=== PATIENT | male | born 1940 | race African-American/Black ===

== ENCOUNTER 2018-04-19 08:20 | Inpatient (IN) | payer OTHER ==
[2018-04-13 16:07] VITALS: BMI 24.7
[2018-04-19] MEDS ORDERED: ETOMIDATE 20 MG/10 ML AMPUL IVPUSH ONE (10:51)
[2018-04-19] MEDS ORDERED: ISOSORBIDE MONONITRATE 60 MG TAB.SR.24H (FP) PO ONE (13:06)
--- NOTE | 2018-04-19 13:08 | CON.CARD ---
Consult Consult Specialty:: Cardiology Reason for Consultation:: htn - History of Present Illness History of Present Illness: patient evaluated for uncontrolled HTN - procedure cancelled due HTN. Patient did not take his meds in am. PMH [facility] 02/09/2012 Dr. Dickens PCI RCA Dr. Dickens PCI RCA Dr. Dickens POST ANESTHESIA NURSE/stent left renal and [facility] 03/17/2013 Dr. Dickens PCI LAD 09/12/16 Dr Dickens POST ANESTHESIA NURSE left SFA 10/29/16 Dr Dickens Ongoing medical problems Left renal artery POST ANESTHESIA NURSE/stent on 03/17/2013. AAA Atrial fibrillation Bladder CA CAD Carotid artery disease htn Hyperlipidemia pad - History Source History Provided By: Patient, Medical Record - Alcohol/Substance Use Hx Alcohol Use: Yes (quit 7 years ago) - Smoking History Smoking history: Former smoker Have you smoked in the past 12 months: No If you are a former smoker, when did you quit?: 20 years ago Home Medications - Allergies Allergies/Adverse Reactions: Allergies Allergy/AdvReac Type Severity Reaction Status Date / Time No Known Allergies Allergy Verified 04/19/18 09:14 - Home Medications Home Medications: Ambulatory Orders Amlodipine Besylate 10 mg PO DAILY 04/16/18 Aspirin 81 mg PO DAILY 04/16/18 Clopidogrel Bisulfate [Clopidogrel] 75 mg PO DAILY 04/16/18 Docusate Sodium 100 mg PO DAILY 04/16/18 Donepezil HCl 5 mg PO DAILY 04/16/18 Hydralazine HCl 50 mg PO DAILY 04/16/18 Isosorbide Mononitrate [Isosorbide Mononitrate ER] 60 mg PO DAILY 04/16/18 Loratadine 10 mg PO DAILY 04/16/18 Metoprolol Tartrate [Lopressor] 50 mg PO DAILY 04/16/18 Tamsulosin HCl 0.4 mg PO DAILY 04/16/18 Carbamazepine [Tegretol -] 200 mg PO TID 04/19/18 Ferrous Sulfate [Feosol] 325 mg PO DAILY 04/19/18 Gabapentin 800 mg PO TID 04/19/18 Ranitidine [Zantac -] 150 mg PO BID 04/19/18 Review of Systems - Review of Systems Constitutional: reports: No Symptoms Eyes: reports: No Symptoms HENT: reports: No Symptoms Neck: reports: No Symptoms Cardiovascular: reports: No Symptoms Gastrointestinal: reports: No Symptoms Genitourinary: reports: No Symptoms Breasts: reports: No Symptoms Reported Musculoskeletal: reports: No Symptoms Integumentary: reports: No Symptoms Neurological: reports: No Symptoms Endocrine: reports: No Symptoms Hematology/Lymphatic: reports: No Symptoms Psychiatric: reports: No Symptoms Vital Signs: Vital Signs Temperature 98.4 F 04/19/18 11:36 Pulse Rate 65 04/19/18 11:36 Respiratory Rate 16 04/19/18 11:36 Blood Pressure 205/86 H 04/19/18 11:36 O2 Sat by Pulse Oximetry (%) 98 04/19/18 11:36 Constitutional: Yes: Well Nourished, No Distress, Calm Eyes: Yes: WNL, Conjunctiva Clear, EOM Intact HENT: Yes: WNL, Atraumatic, Normocephalic Neck: Yes: WNL, Supple, Trachea Midline Respiratory: Yes: WNL, Regular, CTA Bilaterally Gastrointestinal: Yes: WNL, Normal Bowel Sounds Renal/: Yes: WNL Cardiovascular: Yes: WNL, Regular Rate and Rhythm Musculoskeletal: Yes: WNL Extremities: Yes: WNL Integumentary: Yes: WNL Neurological: Yes: WNL, Alert, Oriented ...Motor Strength: WNL Psychiatric: Yes: WNL, Alert, Oriented Imaging - Results EKG: Image Reviewed (sr lvh no changes from before) Assessment/Plan Uncontroled HTN [facility] 02/09/[address] Dr. Dickens PCI RCA Dr. Dickens PCI RCA Dr. Dickens POST ANESTHESIA NURSE/stent left renal and [facility] 03/17/2013 Dr. Dickens PCI LAD 09/12/16 Dr Dickens POST ANESTHESIA NURSE left SFA 10/29/16 Dr Dickens Left renal artery POST ANESTHESIA NURSE/stent on 03/17/2013. AAA Atrial fibrillation Bladder CA CAD Carotid artery disease htn Hyperlipidemia pad Plan restart antihypertensive po meds Will f/u as outp.
[2018-04-19 13:20] LABS: HEMATOCRIT 41.5 % (35.4-49); HEMOGLOBIN 13.2 GM/dL (11.7-16.9); MCH 30.1 pg (25.7-33.7); MCHC 31.8 g/dl (32.0-35.9); MEAN CELL VOLUME 94.8 fl (80-96); MEAN PLT VOLUME 8.7 fl (7.5-11.1); PLATELET COUNT 146 K/MM3 (134-434); RBC 4.37 M/mm3 (4.00-5.60); RDW 13.9 % (11.9-15.9); WHITE BLOOD COUNT 4.1 K/mm3 (4.0-10.0)
--- NOTE | 2018-04-19 13:29 | EKG ---
Test Reason : Blood Pressure : / mmHG Vent. Rate : 068 BPM Atrial Rate : 068 BPM P-R Int : 160 ms QRS Dur : 136 ms QT Int : 410 ms P-R-T Axes : 059 -54 050 degrees QTc Int : 435 ms NORMAL SINUS RHYTHM POSSIBLE LEFT ATRIAL ENLARGEMENT LEFT AXIS DEVIATION LEFT VENTRICULAR HYPERTROPHY WITH QRS WIDENING CANNOT RULE OUT ANTERIOR INFARCT , AGE UNDETERMINED ABNORMAL ECG NO PREVIOUS ECGS AVAILABLE Confirmed by ORESTES BARBOSA, STELLA ([id number]) on 04/19/2018 1:28:46 PM Referred By: Mikhail Madrigal Confirmed By:STELLA CARLISLE MD
[2018-04-19] MEDS: amLODIPine BESYLATE 10 MG TABLET (FP) PO ONE (13:32)
[2018-04-19 14:07] LABS: INR 0.97 (0.83-1.09); PROTHROMBIN TIME (PATIENT) 11.5 SEC (9.7-13.0)
[2018-04-19 14:19] LABS: ANION GAP 10 MMOL/L (8-16); BLOOD UREA NITROGEN 25 mg/dL (7-18); CALCIUM 8.5 mg/dL (8.5-10.1); CHLORIDE 106 mmol/L (98-107); CO2 22 mmol/L (21-32); GLUCOSE,RANDOM 90 mg/dL (74-106); POTASSIUM 4.4 mmol/L (3.5-5.1); SODIUM 138 mmol/L (136-145)
[2018-04-19 14:23] LABS: CREATININE 1.3 mg/dL (0.55-1.3)
--- NOTE | 2018-04-19 14:52 | PN ---
Progress Note (short form) - Note Progress Note: Anesthesia Event Note In brief, pt is a 77 yo M w/ hx of CAD s/p multiple PCI (last 10/2017) on DAPT, HTN, small AAA, PAD who presented today for procedure for TURBT/bladder biopsy. Procedure was deemed as semi-urgent due to need for tissue diagnosis of bladder tumor, thus procedure planned prior to 6 months after PCI. Pt reported this AM that he was unsure if he took his blood pressure medications. On admission, his BP was 178/88. Patient brought to OR and attached to monitors- first BP with systolic >200. In addition, patient noted to have progressively wider QRS from baseline EKG. Finally, patient with transient drop in HR to 30's with spontaneous recovery. Due to cardiac changes and elevated BP, decision made to cancel case. Pt and Dr. Dwaine Kim aware and understood cancellation. Patient did not receive any medications. Pt arrived to PACU with BP 190's/80-90's, stable, no pain. Labs drawn. Spoke to pt's cash register balancer, Dr. Meier, who saw patient prior to surgical scheduling. [facility]aver agreed with cancellation of case and did state that patient has a history of sick sinus syndrome to be worked up by EP at a later date. Dr. Liu (cash register balancer) arrived to bedside and evaluated patient. Recommended giving home BP meds and discharging him pending labs. CBC and BMP per patient's baseline, however troponin elevated to 0.24. Patient to be admitted to telemetry for workup. Dr. Dickens made aware and Dr. Liu to see patient. Patient understood current events and reason for admission.
--- NOTE | 2018-04-19 16:35 | CONSULT ---
Consultation: REQUESTING PROVIDER: Hilario Liu CONSULT REQUEST: We have been asked to medically evaluate this patient for (HTN urgency ). HISTORY OF PRESENT ILLNESS: pt is a 77 yo M w/ hx of CAD s/p multiple PCI (last 10/2017) on DAPT, HTN, small AAA, PAD who presented today for procedure for TURBT/bladder biopsy. Procedure was deemed as semi-urgent due to need for tissue diagnosis of bladder tumor, thus procedure planned prior to 6 months after PCI. Pt reported this AM that he was unsure if he took his blood pressure medications. On admission, his BP was 178/88. Patient brought to OR and attached to monitors- first BP with systolic >200. In addition, patient noted to have progressively wider QRS from baseline EKG. Finally, patient with transient drop in HR to 30's with spontaneous recovery. Due to cardiac changes and elevated BP, decision made to cancel case. Pt and Dr. Dwaine Kim aware and understood cancellation. Patient did not receive any medications. pt's manager graphic, Dr. Meier,was contacted , who saw patient prior to surgical scheduling. [facility] agreed with cancellation of case and did state that patient has a history of sick sinus syndrome to be worked up by EP at a later date. Dr. Liu (manager graphic) arrived to bedside and evaluated patient. Recommended giving home BP meds . CBC and BMP per patient's baseline, however troponin elevated to 0.24. Patient to be admitted to telemetry for workup. Dr. Dickens made aware and Dr. Liu to see patient. pt reports multiple episode of chest pain last few weeks , associated with SOB , usually resolved with SL NG. to day his chest pain was aggravated in certain positions when he extend and abdruct his arm , last 5-6 min , comes and goes , cramping in nature, pt is high risk for CAD and will admitted to tele for monitoring . pt sleep on 1-2 pillows , denies any orthopnea or exertional dyspnea. pt denies any fever, chills, N/V/D/C, denies any abdominal pain , denies any blood in urine , dysuria, frequencey or urgency. REVIEW OF SYSTEMS: CONSTITUTIONAL: Absent: fever, chills, diaphoresis, generalized weakness, malaise, loss of appetite, weight change HEENT: Absent: rhinorrhea, nasal congestion, throat pain, throat swelling, difficulty swallowing, mouth swelling, ear pain, eye pain, visual changes CARDIOVASCULAR: Absent: chest pain, syncope, palpitations, irregular heart rate, lightheadedness , peripheral edema RESPIRATORY: Absent: cough, shortness of breath, dyspnea with exertion, orthopnea, wheezing, stridor, hemoptysis GASTROINTESTINAL: Absent: abdominal pain, abdominal distension, nausea, vomiting, diarrhea, constipation, melena, hematochezia GENITOURINARY: Absent: dysuria, frequency, urgency, hesitancy, hematuria, flank pain, genital pain MUSCULOSKELETAL: Absent: myalgia, arthralgia, joint swelling, back pain, neck pain SKIN: Absent: rash, itching, pallor HEMATOLOGIC/IMMUNOLOGIC: Absent: easy bleeding, easy bruising, lymphadenopathy, frequent infections ENDOCRINE: Absent: unexplained weight gain, unexplained weight loss, heat intolerance, cold intolerance NEUROLOGIC: Absent: headache, focal weakness or paresthesias, dizziness, unsteady gait, seizure, mental status changes, bladder or bowel incontinence PSYCHIATRIC: Absent: anxiety, depression, suicidal or homicidal ideation, hallucinations. PHYSICAL EXAMINATION Vital Signs - 24 hr 04/19/18 04/19/18 04/19/18 08:40 11:36 11:55 Temperature 97.6 F 98.4 F Pulse Rate 76 65 66 Respiratory 16 16 18 Rate Blood Pressure 178/88 H 205/86 H 184/78 H O2 Sat by Pulse 100 98 98 Oximetry (%) 04/19/18 04/19/18 04/19/18 12:10 12:25 12:40 Temperature Pulse Rate 68 71 64 Respiratory 14 14 16 Rate Blood Pressure 179/72 H 185/83 H 199/87 H O2 Sat by Pulse 98 97 98 Oximetry (%) 04/19/18 04/19/18 04/19/18 12:55 13:10 13:25 Temperature Pulse Rate 42 L 62 70 Respiratory 16 14 16 Rate Blood Pressure 176/90 H 185/65 H 184/72 H O2 Sat by Pulse 100 99 99 Oximetry (%) 04/19/18 04/19/18 04/19/18 13:40 13:55 14:10 Temperature Pulse Rate 64 64 62 Respiratory 16 16 14 Rate Blood Pressure 182/81 H 171/79 H 168/72 O2 Sat by Pulse 98 98 98 Oximetry (%) 04/19/18 04/19/18 04/19/18 14:25 14:40 14:55 Temperature Pulse Rate 59 L 59 L 58 L Respiratory 16 16 16 Rate Blood Pressure 171/87 H 170/87 169/92 O2 Sat by Pulse 98 99 98 Oximetry (%) 04/19/18 04/19/18 04/19/18 15:10 15:25 15:48 Temperature Pulse Rate 72 71 74 Respiratory 18 16 16 Rate Blood Pressure 169/86 161/92 158/90 O2 Sat by Pulse 100 98 99 Oximetry (%) 04/19/18 15:53 Temperature 98.4 F Pulse Rate 71 Respiratory 16 Rate Blood Pressure 161/98 O2 Sat by Pulse Oximetry (%) GENERAL: AAOx3 in NAD HEAD:NC/AT, poor dentition EYES:QI, EOMI, sclera anicteric, ENT: Moist mucous membranes. NECK: supple without JVD, LUNGS:CTA B/L . No wheezes, and no crackles. No accessory muscle use. HEART: RRR, normal S1 and S2 without murmur, rub or gallop. ABDOMEN: Soft, ND, NT , normoactive bowel sounds, LOWER EXTREMITIES: 2+ pulses, warm, well-perfused. No calf tenderness. No peripheral edema. NEUROLOGICAL: No focal deficit . Normal speech. gait not observed PSYCHIATRIC: Cooperative. Good eye contact. Appropriate mood and affect. SKIN: Warm, dry, Laboratory Results - last 24 hr 04/19/18 04/19/18 04/19/18 13:00 13:00 13:00 WBC 4.1 RBC 4.37 Hgb 13.2 Hct 41.5 MCV 94.8 MCH 30.1 MCHC 31.8 L RDW 13.9 Plt Count 146 MPV 8.7 PT with INR 11.50 INR 0.97 Sodium 138 Potassium 4.4 Chloride 106 Carbon Dioxide 22 Anion Gap 10 BUN 25 H Creatinine 1.3 Creat Clearance w eGFR 53.67 Random Glucose 90 Calcium 8.5 Creatine Kinase 465 H Creatine Kinase Index 0.5 CK-MB (CK-2) 2.7 Troponin I 0.24 H CBC, BMP 04/19/18 13:00 04/19/18 13:00 EKG - NSR 68, LAD, LVH, QRS 435, QS in V2-V3 till tall T waves, ASSESSMENT AND PLAN: 77 yo M with PMHx of extensive atherosclerotic disease, CAD s/p multiple PCI, last RCA PCI 10/2017, PAD s/p PCI, renal artery stenosis s/p PCI 2012, AAA, HLD, HTN, bladder tumor admitted for elective TURBT/Biopsy, found hypertensive as did not take his BP meds, noted with mild troponin elevation # HTN urgency * pt bp was elevated up to 200 systolic before the procedure * Pt did not take his BP meds today * [facility] was consulted Dr Arevalo * on my present pt BP was 169 systolic , he received [id number] and .... * will resume his home meds Hydralysine and toprol XL today and rest will be resumed tomorrow AM * Trend Trop * Monitor in Tele # Elevated trop * Likely demand ischemia * trend trop * repeat EKG # Stable Angina usually take NG SL, today pain started in certain position but not reproducible # CAD S/P CABG last in October 2017 * Resume ASA , plavix # PVD S/P PCI #Renal artery stenosis S/P PCI * resume carbamazipine # BPH * resume home meds # Bladder cancer S/P laser treatment 5 years ago * TURB/biopsy was cancelled today * will stabilize the pt and deffer the procedure till medically optimized. # Anemia * cont Ferrous sulfate # FEN * F: oral intake * E: monitor * N: Low sodium diet # Proph * DVTS: on ASA, Plavix * GI: Cont ranitidine # Dispo * Tele monitor Dispo: We will continue to follow the patient. Thank you for this consultative opportunity. Visit type - Emergency Visit Emergency Visit: No - New Patient This patient is new to me today: Yes Date on this admission: 04/20/18 - Critical Care Critical Care patient: No
--- NOTE | 2018-04-19 17:02 | PN ---
Teaching Attending Note Name of Resident: Dick Adams ATTENDING PHYSICIAN STATEMENT I saw and evaluated the patient. I reviewed the resident's note and discussed the case with the resident. I agree with the resident's findings and plan as documented with exceptions below. SUBJECTIVE: 77 yom with PMHx of extensive atherosclerotic disease, CAD s/p multiple PCI, last RCA PCI 10/2017, PAD s/p PCI, renal artery stenosis s/p PCI 2012, AAA, HLD, HTN, bladder tumor admitted for elective TURBT/Biopsy today, however was noted with SBP 200s (unclear if took his meds) and EKG with widening QRS from prior, discussed with Dr. Ruiz, procedure was canceled, Dr. Liu was consulted and patient admitted to telemetry for management. Patient currently s/p amlodipine 10 mg and isosorbide mononitrate 60 mg. Currently SBP 160s. 12 point ROS done, patient reports intermittent left sided 'cramp' with left arm movements, none currently. reports intermittent anginal symptoms, takes sl NTG with resolution, current ' cramp' symptoms are positional. Patient confirms taking his ASA/plavix this morning but not his BP meds (med bottles at bedside, able to confirm and reconcile each medication) OBJECTIVE: Vital Signs Period Temp Pulse Resp BP Sys/Martins Pulse Ox Last 24 Hr 97.6 F-98.4 F 42-76 14-18 158-205/65-98 97-100 Intake & Output 04/16/18 04/17/18 04/18/18 04/19/18 23:59 23:59 23:59 23:59 Intake Total 500 Output Total 1050 Balance -550 GENERAL: Awake, alert, and fully oriented, in no acute distress. HEAD: Normal with no signs of trauma. EYES: Pupils equal, round and reactive to light, extra-ocular movements intact, sclera anicteric, conjunctiva clear. No lid lag. EARS, NOSE, THROAT: Ears normal, nares patent, oropharynx clear without exudates. Moist mucous membranes. NECK: soft, supple, no JVD LUNGS: Breath sounds equal, clear to auscultation bilaterally. No wheezes, and no crackles. No accessory muscle use, . HEART: S1S2 regular rate and rhythm. ABDOMEN: Soft, nontender, not distended, normoactive bowel sounds, no guarding, no rebound, no masses. MUSCULOSKELETAL: Normal range of motion at all joints. No bony deformities or tenderness. No CVA tenderness. UPPER EXTREMITIES: 1+DP pulses, warm, well-perfused. No cyanosis. No clubbing. No peripheral edema. LOWER EXTREMITIES: 1+DP pulses, warm, well-perfused. No calf tenderness. No peripheral edema. NEUROLOGICAL: Cranial nerves II-XII intact. Normal speech. Gait deferred PSYCHIATRIC: Cooperative. Good eye contact. Appropriate mood and affect. SKIN: Warm, dry, normal turgor, no rashes or lesions noted, normal capillary refill. Home Medications Medication Instructions Recorded Amlodipine Besylate 10 mg PO DAILY 04/16/18 Aspirin 81 mg PO DAILY 04/16/18 Clopidogrel Bisulfate [Clopidogrel] 75 mg PO DAILY 04/16/18 Docusate Sodium 100 mg PO DAILY 04/16/18 Donepezil HCl 5 mg PO DAILY 04/16/18 Hydralazine HCl 50 mg PO DAILY 04/16/18 Isosorbide Mononitrate [Isosorbide 60 mg PO DAILY 04/16/18 Mononitrate ER] Loratadine 10 mg PO DAILY 04/16/18 Metoprolol Tartrate [Lopressor] 50 mg PO DAILY 04/16/18 Tamsulosin HCl 0.4 mg PO DAILY 04/16/18 Carbamazepine [Tegretol -] 200 mg PO TID 04/19/18 Ferrous Sulfate [Feosol] 325 mg PO DAILY 04/19/18 Gabapentin 800 mg PO TID 04/19/18 Ranitidine [Zantac -] 150 mg PO BID 04/19/18 Laboratory Results - last 24 hr 04/19/18 04/19/18 04/19/18 13:00 13:00 13:00 WBC 4.1 RBC 4.37 Hgb 13.2 Hct 41.5 MCV 94.8 MCH 30.1 MCHC 31.8 L RDW 13.9 Plt Count 146 MPV 8.7 PT with INR 11.50 INR 0.97 Sodium 138 Potassium 4.4 Chloride 106 Carbon Dioxide 22 Anion Gap 10 BUN 25 H Creatinine 1.3 Creat Clearance w eGFR 53.67 Random Glucose 90 Calcium 8.5 Creatine Kinase 465 H Creatine Kinase Index 0.5 CK-MB (CK-2) 2.7 Troponin I 0.24 H EKG - NSR 68, LAD, LVH, QRS 435, QS in V2-V3 till tall T waves, ASSESSMENT AND PLAN: 77 yom with PMHx of extensive atherosclerotic disease, CAD s/p multiple PCI, last RCA PCI 10/2017, PAD s/p PCI, renal artery stenosis s/p PCI 2012, AAA, HLD, HTN, bladder tumor admitted for elective TURBT/Biopsy, found hypertensive as did not take his BP meds, noted with mild troponin elevation -Hypertensive urgency, likely in the setting of not taking his home meds today -Elevated troponin, ?demand ischemia from above, r/o ACS given high risk with non specific new EKG changes -Chronic stable angina -CAD s/p multiple PCI, last RCA PCI 10/2017 -Renal artery stenosis s/p PCI 013 -AAA -PAD s/p PCI -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 s/p amlodipine/ISMN in the PACU. resume toprol XL 25 mg and hydralazine 50 mg daily. ASA/plavix/ISMN per cardiology. patient not on statin?, defer to primary team. Telemetry to assess for arrythmia (h/o sick sinus syndrome per charts). Cycle troponin. Monitor for new chest pain, troponin elevation and EKG changes as patient high risk. Cr around baseline, monitor for now. Resume home flomax/carbamezepine. DVTPPX if inhouse and nonamblatory > 48 hours. plan discussed with patient and all questions answered. Thank you for the consult. Will follow with you. total time spent 65 min.
[2018-04-19] MEDS: hydrALAZINE HCL 50 MG TABLET (FP) PO SCH (18:29)
[2018-04-19] MEDS: metoPROLOL SUCCINATE 25 MG TAB.SR.24H (FP) PO SCH (18:30)
[2018-04-19 19:19] LABS: BASO % 1.2 % (0-2.0); EOS % 6.2 % (0-4.5); HEMATOCRIT 35.7 % (35.4-49); HEMOGLOBIN 12.6 GM/dL (11.7-16.9); LYMPH % 27.4 % (8-40); MCH 32.6 pg (25.7-33.7); MCHC 35.2 g/dl (32.0-35.9); MEAN CELL VOLUME 92.7 fl (80-96); MEAN PLT VOLUME 8.8 fl (7.5-11.1); MONO % 13.4 % (3.8-10.2); NEUT % 51.8 % (42.8-82.8); PLATELET COUNT 152 K/MM3 (134-434); RBC 3.85 M/mm3 (4.00-5.60); RDW 13.8 % (11.9-15.9)
[2018-04-19 19:55] LABS: ANION GAP 8 MMOL/L (8-16); BLOOD UREA NITROGEN 24 mg/dL (7-18); CALCIUM 8.3 mg/dL (8.5-10.1); CHLORIDE 105 mmol/L (98-107); CO2 27 mmol/L (21-32); CREATININE 1.3 mg/dL (0.55-1.3); GLUCOSE,RANDOM 114 mg/dL (74-106); POTASSIUM 3.8 mmol/L (3.5-5.1); SODIUM 140 mmol/L (136-145)
[2018-04-19] MEDS: GABAPENTIN 400 MG CAPSULE (FP) PO SCH (21:01)
[2018-04-19] MEDS: carBAMazepine 200 MG TABLET PO SCH (21:02)
[2018-04-19] MEDS: RANITIDINE HCL 150 MG TABLET (FP) PO SCH (21:02)
[2018-04-20] MEDS: carBAMazepine 200 MG TABLET PO SCH ×3 (05:43→22:52)
[2018-04-20] MEDS: GABAPENTIN 400 MG CAPSULE (FP) PO SCH ×3 (05:43→21:30)
[2018-04-20 07:47] LABS: MAGNESIUM 2.1 mg/dL (1.8-2.4); PHOSPHOROUS 3.5 mg/dL (2.5-4.9)
[2018-04-20] MEDS: hydrALAZINE HCL 50 MG TABLET (FP) PO SCH ×3 (08:36→21:30)
[2018-04-20] MEDS: TAMSULOSIN HCL 0.4 MG CAP PO SCH (08:36)
[2018-04-20] MEDS: metoPROLOL SUCCINATE 25 MG TAB.SR.24H (FP) PO SCH ×2 (08:37→14:56)
[2018-04-20] MEDS: amLODIPine BESYLATE 10 MG TABLET (FP) PO SCH ×2 (08:37→14:52)
[2018-04-20] MEDS: LORATADINE 10 MG TABLET PO SCH (11:06)
[2018-04-20] MEDS: CLOPIDOGREL BISULFATE 75 MG TABLET (FP) PO SCH (11:06)
[2018-04-20] MEDS: FERROUS SO4 325 MG TABLET (FP) PO SCH (11:07)
[2018-04-20] MEDS: RANITIDINE HCL 150 MG TABLET (FP) PO SCH ×2 (11:07→21:30)
[2018-04-20] MEDS: DOCUSATE SODIUM 100 MG CAPSULE (FP) PO SCH (11:07)
[2018-04-20] MEDS: DONEPEZIL HCL 5 MG TABLET (FP) PO SCH (11:07)
[2018-04-20] MEDS: ISOSORBIDE MONONITRATE 60 MG TAB.SR.24H (FP) PO SCH (11:08)
[2018-04-20] MEDS: ASPIRIN 81 MG CHEWABLE TABLETS PO SCH (11:09)
--- NOTE | 2018-04-20 12:28 | EKG ---
Test Reason : Blood Pressure : / mmHG Vent. Rate : 065 BPM Atrial Rate : 065 BPM P-R Int : 158 ms QRS Dur : 138 ms QT Int : 404 ms P-R-T Axes : 055 -46 058 degrees QTc Int : 420 ms NORMAL SINUS RHYTHM POSSIBLE LEFT ATRIAL ENLARGEMENT LEFT AXIS DEVIATION LEFT VENTRICULAR HYPERTROPHY WITH QRS WIDENING AND REPOLARIZATION ABNORMALITY CANNOT RULE OUT SEPTAL INFARCT (CITED ON OR BEFORE 19-APR-2018) ABNORMAL ECG Confirmed by MD ERIK, STAN ([id number]) on 04/20/2018 12:28:22 PM Referred By: Mikhail Madrigal Confirmed By:STAN VALENCIA MD
--- NOTE | 2018-04-20 12:37 | PN ---
Progress Note, Physician Chief Complaint: PT A&Ox3; ambulates without chest pain, dyspnea, or palpitations. History of Present Illness: pt is a 77 yo M w/ hx of CAD s/p multiple PCI (last 10/2017) on DAPT, HTN, small AAA, PAD who presented today for procedure for TURBT/bladder biopsy. Procedure was deemed as semi-urgent due to need for tissue diagnosis of bladder tumor, thus procedure planned prior to 6 months after PCI. Pt reported this AM that he was unsure if he took his blood pressure medications. On admission, his BP was 178/88. Patient brought to OR and attached to monitors- first BP with systolic >200. In addition, patient noted to have progressively wider QRS from baseline EKG. Finally, patient with transient drop in HR to 30's with spontaneous recovery. Due to cardiac changes and elevated BP, decision made to cancel case. Pt and Dr. Dwaine Kim aware and understood cancellation. Patient did not receive any medications. Pt arrived to PACU with BP 190's/80-90's, stable, no pain. Labs drawn. Spoke to pt's systems analysis manager, Dr. Meier, who saw patient prior to surgical scheduling. Mucker Cofferdam agreed with cancellation of case and did state that patient has a history of sick sinus syndrome to be worked up by EP at a later date. Dr. Liu (systems analysis manager) arrived to bedside and evaluated patient. Recommended giving home BP meds and discharging him pending labs. CBC and BMP per patient's baseline, however troponin elevated to 0.24. Patient to be admitted to telemetry for workup. Dr. Dickesn made aware and Dr. Liu to see patient. - Current Medication List Current Medications: Active Medications Amlodipine Besylate (Norvasc -) 10 mg PO DAILY [facility] Last Admin: 04/20/18 08:37 Dose: 10 mg Aspirin (Asa -) 81 mg PO DAILY [facility] Last Admin: 04/20/18 11:09 Dose: 81 mg Carbamazepine (Tegretol -) 200 mg PO TID [facility] Last Admin: 04/20/18 05:43 Dose: 200 mg Clopidogrel Bisulfate (Plavix -) 75 mg PO DAILY [facility] Last Admin: 04/20/18 11:06 Dose: 75 mg Docusate Sodium (Colace -) 100 mg PO DAILY [facility] Last Admin: 04/20/18 11:07 Dose: 100 mg Donepezil HCl (Aricept -) 5 mg PO DAILY [facility] Last Admin: 04/20/18 11:07 Dose: 5 mg Ferrous Sulfate (Feosol -) 325 mg PO DAILY [facility] Last Admin: 04/20/18 11:07 Dose: 325 mg Gabapentin (Neurontin -) 800 mg PO TID [facility] Last Admin: 04/20/18 05:43 Dose: 800 mg Hydralazine HCl (Apresoline -) 50 mg PO DAILY [facility] Last Admin: 04/20/18 08:36 Dose: 50 mg Isosorbide Mononitrate (Imdur -) 60 mg PO DAILY [facility] Last Admin: 04/20/18 11:08 Dose: 60 mg Loratadine (Claritin -) 10 mg PO DAILY [facility] Last Admin: 04/20/18 11:06 Dose: 10 mg Metoprolol Succinate (Toprol Xl -) 25 mg PO DAILY [facility] Last Admin: 04/20/18 08:37 Dose: 25 mg Ranitidine HCl (Zantac -) 150 mg PO BID [facility] Last Admin: 04/20/18 11:07 Dose: 150 mg Tamsulosin HCl (Flomax -) 0.4 mg PO DAILY@0830 [facility] Last Admin: 04/20/18 08:36 Dose: 0.4 mg - Objective Vital Signs: Vital Signs Temperature 98 F 04/20/18 08:30 Pulse Rate 62 04/20/18 10:58 Respiratory Rate 20 04/20/18 10:58 Blood Pressure 179/85 H 04/20/18 10:58 O2 Sat by Pulse Oximetry (%) 97 04/20/18 08:30 Constitutional: Yes: Calm Labs: CBC, BMP 04/19/18 18:02 04/19/18 18:00 INR, PTT INR 0.97 (0.83-1.09) 04/19/18 13:00 Problem List - Problems (1) HTN (hypertension) Assessment/Plan: Increase hydralazine to 50 mg bid. Continue [id number] 10 mg eaily. F/u BP and HR serailly (hx sick sinus syndrome; f/u carefully while on beta alexx; he has been on metoprolol ER 25 mg qd as outpatient).. Code(s): I10 - ESSENTIAL (PRIMARY) HYPERTENSION
--- NOTE | 2018-04-20 12:47 | PN ---
Physical Exam: SUBJECTIVE: Patient seen and examined at bedside. c/o blurry vision this am after eating breakfast. BGM right after 167. BP was 191/103. OBJECTIVE: Vital Signs Period Temp Pulse Resp BP Sys/Martins Pulse Ox Last 24 Hr 97.4 F-98.5 F 42-93 14-20 132-190/65-103 95-100 GENERAL: Awake Alert Oriented HEAD: NC/AT EYES: EOMI Conjunctiva clear, no scleral icterus ENT: MMM NECK: Supple, No LUNGS: DEc BS at bases. HEART: RRR No MRG S1S2. ABDOMEN: NDNT No HSM. EXTREMITIES:No CCE NEUROLOGICAL: No neuro deficits appreciated PSYCH: Normal mood, normal affect. SKIN: Warm, dry, normal turgor, no rashes or lesions noted Laboratory Results - last 24 hr 04/19/18 04/19/18 04/19/18 13:00 13:00 13:00 WBC 4.1 RBC 4.37 Hgb 13.2 Hct 41.5 MCV 94.8 MCH 30.1 MCHC 31.8 L RDW 13.9 Plt Count 146 MPV 8.7 Absolute Neuts (auto) Neutrophils % Lymphocytes % Monocytes % Eosinophils % Basophils % Nucleated RBC % PT with INR 11.50 INR 0.97 Sodium 138 Potassium 4.4 Chloride 106 Carbon Dioxide 22 Anion Gap 10 BUN 25 H Creatinine 1.3 Creat Clearance w eGFR 53.67 POC Glucometer Random Glucose 90 Calcium 8.5 Phosphorus Magnesium Creatine Kinase 465 H Creatine Kinase Index 0.5 CK-MB (CK-2) 2.7 Troponin I 0.24 H 04/19/18 04/19/18 04/20/18 18:00 18:02 05:30 WBC 4.0 RBC 3.85 L Hgb 12.6 Hct 35.7 MCV 92.7 MCH 32.6 MCHC 35.2 RDW 13.8 Plt Count 152 MPV 8.8 Absolute Neuts (auto) 2.1 Neutrophils % 51.8 Lymphocytes % 27.4 Monocytes % 13.4 H Eosinophils % 6.2 H Basophils % 1.2 Nucleated RBC % 0 PT with INR INR Sodium 140 Potassium 3.8 Chloride 105 Carbon Dioxide 27 Anion Gap 8 BUN 24 H Creatinine 1.3 Creat Clearance w eGFR 53.67 POC Glucometer Random Glucose 114 H Calcium 8.3 L Phosphorus 3.5 Magnesium 2.1 Creatine Kinase 339 H Creatine Kinase Index 0.5 CK-MB (CK-2) 1.7 Troponin I 0.28 H 04/20/18 08:21 WBC RBC Hgb Hct MCV MCH MCHC RDW Plt Count MPV Absolute Neuts (auto) Neutrophils % Lymphocytes % Monocytes % Eosinophils % Basophils % Nucleated RBC % PT with INR INR Sodium Potassium Chloride Carbon Dioxide Anion Gap BUN Creatinine Creat Clearance w eGFR POC Glucometer 167 Random Glucose Calcium Phosphorus Magnesium Creatine Kinase Creatine Kinase Index CK-MB (CK-2) Troponin I Active Medications Generic Name Dose Route Start Last Admin Trade Name Freq PRN Reason Stop Dose Admin Amlodipine Besylate 10 mg 04/20/18 10:00 04/20/18 08:37 Norvasc - PO 10 mg DAILY KATHRYN Administration Aspirin 81 mg 04/20/18 10:00 04/20/18 11:09 Asa - PO 81 mg DAILY KATHRYN Administration Carbamazepine 200 mg 04/19/18 22:00 04/20/18 05:43 Tegretol - PO 200 mg TID KATHRYN Administration Clopidogrel Bisulfate 75 mg 04/20/18 10:00 04/20/18 11:06 Plavix - PO 75 mg DAILY KATHRYN Administration Docusate Sodium 100 mg 04/20/18 10:00 04/20/18 11:07 Colace - PO 100 mg DAILY KATHRYN Administration Donepezil HCl 5 mg 04/20/18 10:00 04/20/18 11:07 Aricept - PO 5 mg DAILY KATHRYN Administration Ferrous Sulfate 325 mg 04/20/18 10:00 04/20/18 11:07 Feosol - PO 325 mg DAILY KATHRYN Administration Gabapentin 800 mg 04/19/18 22:00 04/20/18 05:43 Neurontin - PO 800 mg TID KATHRYN Administration Isosorbide Mononitrate 60 mg 04/20/18 10:00 04/20/18 11:08 Imdur - PO 60 mg DAILY KATHRYN Administration Loratadine 10 mg 04/20/18 10:00 04/20/18 11:06 Claritin - PO 10 mg DAILY KATHRYN Administration Metoprolol Succinate 25 mg 04/19/18 17:45 04/20/18 08:37 Toprol Xl - PO 25 mg DAILY KATHRYN Administration Ranitidine HCl 150 mg 04/19/18 22:00 04/20/18 11:07 Zantac - PO 150 mg BID KATHRYN Administration Tamsulosin HCl 0.4 mg 04/20/18 08:30 04/20/18 08:36 Flomax - PO 0.4 mg DAILY@0830 KATHRYN Administration ASSESSMENT/PLAN: 77 yo gentleman with PMHx of extensive atherosclerotic disease, CAD s/p multiple PCI, last RCA PCI 10/2017, PAD s/p PCI, renal artery stenosis s/p PCI 2012, AAA, HLD, HTN, bladder tumor admitted for elective TURBT/Biopsy, found hypertensive as did not take his BP meds, noted with mild troponin elevation # HTN urgency -pt bp was elevated up to 200 systolic before the procedure -Cardiology on board -BP 191/103 this am, given hydralazine 50 mg. - Increase hydralazine to 50 mg bid. -Continue [id number] 10 mg eaily. -Second trop 0.24, 3rd Trop pending -Monitor in Tele # Elevated trop -Likely demand ischemia 2/2 Hypertensive Urgency -trend trop # CAD S/P CABG last in October 2017 * Resume ASA , plavix # BPH * Tamsulosin .4 mg daily # Bladder cancer S/P laser treatment 5 years ago - Was scheduled for Transurethral resection of Bladder Tumor., postponed 2/2 hypertensive urgency -Dr Madrigal on board # FEN No Fluids Monitor Electrolytes Sodium controlled diet # DVT ppx: Plavix # Dispo -Tele . Visit type - Emergency Visit Emergency Visit: Yes ED Registration Date: 04/19/18 Care time: The patient presented to the Emergency Department on the above date and was hospitalized for further evaluation of their emergent condition. - New Patient This patient is new to me today: Yes Date on this admission: 04/20/18 - Critical Care Critical Care patient: No - Discharge Referral Referred to [facility] No
--- NOTE | 2018-04-20 14:59 | PN ---
Teaching Attending Note Name of Resident: Ronald Gibbons ATTENDING PHYSICIAN STATEMENT I saw and evaluated the patient. I reviewed the resident's note and discussed the case with the resident. I agree with the resident's findings and plan as documented. SUBJECTIVE:states he had blurred vision this AM after eating his breakfast. states he has had no recent changes to his antihypertensives and claims compliance. he did not take his medications yesterday morning. state when he checks his BP at home ranging between 150-160. denies CP, SOB, fever, chills, N/ V/C/D OBJECTIVE: Last Vital Signs Temp Pulse Resp BP Pulse Ox 98 F 88 20 179/85 H 97 04/20/18 08:30 04/20/18 13:40 04/20/18 10:58 04/20/18 10:58 04/20/18 13:40 General NAD CV S1 S2 RRR +murmur Lungs CTA B/L no wheezing/rales/rhonchi ASSESSMENT AND PLAN: 77 yom with PMHx of extensive atherosclerotic disease, CAD s/p multiple PCI, last RCA PCI 10/2017, PAD s/p PCI, renal artery stenosis s/p PCI 2012, AAA, HLD, HTN, bladder tumor admitted for elective TURBT/Biopsy, found hypertensive as did not take his BP meds, noted with mild troponin elevation 1. Hypertensive urgency- likely in the setting of not taking his home meds, however appears to be not at goal at baseline. hydralazine increased to BID. will cont to monitor. will need to titrate medications. cardio on board 2. Elevated troponin- likely demand from HTN urgency. flat trend. no EKG changes. 3. Bladder ca s/p laser therapy- will need to reschedule TURBT as outpatient. f/ u urology as outpatient 4. CKD 5. PAD s/p PCI 6. JAMEL s/p PCI 7. SSS 8. DVT ppx- EAM
[2018-04-20] MEDS ORDERED: PT OWN MED DRAWER 7, Y5N ONE ×2 (15:19→21:06)
[2018-04-20] MEDS ORDERED: ATORVASTATIN CA 20 MG TABLET (FP) PO SCH (22:00)
[2018-04-21] MEDS: carBAMazepine 200 MG TABLET PO SCH ×2 (06:25→13:49)
[2018-04-21] MEDS: GABAPENTIN 400 MG CAPSULE (FP) PO SCH ×2 (06:25→13:48)
[2018-04-21 07:23] LABS: HEMATOCRIT 38.6 % (35.4-49); HEMOGLOBIN 13.7 GM/dL (11.7-16.9); MCHC 35.4 g/dl (32.0-35.9); MEAN CELL VOLUME 93.3 fl (80-96); MEAN PLT VOLUME 8.8 fl (7.5-11.1); PLATELET COUNT 153 K/MM3 (134-434); RBC 4.14 M/mm3 (4.00-5.60); RDW 14.2 % (11.9-15.9); WHITE BLOOD COUNT 4.4 K/mm3 (4.0-10.0)
[2018-04-21 08:35] LABS: ANION GAP 4 MMOL/L (8-16); BLOOD UREA NITROGEN 20 mg/dL (7-18); CALCIUM 8.8 mg/dL (8.5-10.1); CHLORIDE 105 mmol/L (98-107); CO2 29 mmol/L (21-32); CREATININE 1.2 mg/dL (0.55-1.3); GLUCOSE,RANDOM 114 mg/dL (74-106); MAGNESIUM 2.2 mg/dL (1.8-2.4); PHOSPHOROUS 3.6 mg/dL (2.5-4.9); POTASSIUM 4.8 mmol/L (3.5-5.1); SODIUM 138 mmol/L (136-145)
[2018-04-21] MEDS: ASPIRIN 81 MG CHEWABLE TABLETS PO SCH (10:20)
[2018-04-21] MEDS: TAMSULOSIN HCL 0.4 MG CAP PO SCH (10:20)
[2018-04-21] MEDS: hydrALAZINE HCL 50 MG TABLET (FP) PO SCH (10:21)
[2018-04-21] MEDS: DOCUSATE SODIUM 100 MG CAPSULE (FP) PO SCH (10:21)
[2018-04-21] MEDS: RANITIDINE HCL 150 MG TABLET (FP) PO SCH (10:21)
[2018-04-21] MEDS: CLOPIDOGREL BISULFATE 75 MG TABLET (FP) PO SCH (10:21)
[2018-04-21] MEDS: amLODIPine BESYLATE 10 MG TABLET (FP) PO ONE (10:21)
[2018-04-21] MEDS: metoPROLOL SUCCINATE 25 MG TAB.SR.24H (FP) PO SCH (10:21)
[2018-04-21] MEDS: DONEPEZIL HCL 5 MG TABLET (FP) PO SCH (10:21)
[2018-04-21] MEDS: LORATADINE 10 MG TABLET PO SCH (10:21)
[2018-04-21] MEDS: amLODIPine BESYLATE 10 MG TABLET (FP) PO SCH (10:23)
[2018-04-21 10:48] VITALS: BP 160/70; PULSE 78; TEMP 99
--- NOTE | 2018-04-21 12:24 | PN ---
Progress Note, Physician History of Present Illness: patient evaluated for uncontrolled HTN - procedure cancelled due HTN. Patient did not take his meds in am. PMH [facility] 02/09/2012 Dr. Dickens PCI RCA Dr. 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 03/17/2013 Dr. 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 AAA Atrial fibrillation Bladder CA CAD Carotid artery disease htn Hyperlipidemia pad - Current Medication List Current Medications: Active Medications Amlodipine Besylate (Norvasc -) 10 mg PO DAILY [facility] Last Admin: 04/21/18 10:23 Dose: 10 mg Aspirin (Asa -) 81 mg PO DAILY [facility] Last Admin: 04/21/18 10:20 Dose: 81 mg Atorvastatin Calcium (Lipitor -) 20 mg PO HS [facility] Last Admin: 04/20/18 21:30 Dose: 20 mg Carbamazepine (Tegretol -) 200 mg PO TID [facility] Last Admin: 04/21/18 06:25 Dose: 200 mg Clopidogrel Bisulfate (Plavix -) 75 mg PO DAILY [facility] Last Admin: 04/21/18 10:21 Dose: 75 mg Docusate Sodium (Colace -) 100 mg PO DAILY [facility] Last Admin: 04/21/18 10:21 Dose: 100 mg Donepezil HCl (Aricept -) 5 mg PO DAILY [facility] Last Admin: 04/21/18 10:21 Dose: 5 mg Ferrous Sulfate (Feosol -) 325 mg PO DAILY [facility] Last Admin: 04/20/18 11:07 Dose: 325 mg Gabapentin (Neurontin -) 800 mg PO TID [facility] Last Admin: 04/21/18 06:25 Dose: 800 mg Hydralazine HCl (Apresoline -) 50 mg PO BID [facility] Last Admin: 04/21/18 10:21 Dose: 50 mg Isosorbide Mononitrate (Imdur -) 60 mg PO DAILY [facility] Last Admin: 04/20/18 11:08 Dose: 60 mg Loratadine (Claritin -) 10 mg PO DAILY [facility] Last Admin: 04/21/18 10:21 Dose: 10 mg Metoprolol Succinate (Toprol Xl -) 25 mg PO DAILY [facility] Last Admin: 04/21/18 10:21 Dose: 25 mg Ranitidine HCl (Zantac -) 150 mg PO BID [facility] Last Admin: 04/21/18 10:21 Dose: 150 mg Tamsulosin HCl (Flomax -) 0.4 mg PO DAILY@0830 [facility] Last Admin: 04/21/18 10:20 Dose: 0.4 mg - Objective Vital Signs: Vital Signs Temperature 99 F 04/21/18 10:47 Pulse Rate 78 04/21/18 10:47 Respiratory Rate 20 04/21/18 10:47 Blood Pressure 160/70 04/21/18 10:47 O2 Sat by Pulse Oximetry (%) 97 04/21/18 08:22 Eyes: Yes: WNL, Conjunctiva Clear, EOM Intact HENT: Yes: WNL, Atraumatic, Normocephalic Neck: Yes: WNL, Supple, Trachea Midline Cardiovascular: Yes: WNL, Regular Rate and Rhythm Respiratory: Yes: WNL, Regular, CTA Bilaterally Gastrointestinal: Yes: WNL, Normal Bowel Sounds Genitourinary: Yes: WNL Musculoskeletal: Yes: WNL Extremities: Yes: WNL Edema: No Integumentary: Yes: WNL Neurological: Yes: WNL, Alert, Oriented ...Motor Strength: WNL Psychiatric: Yes: WNL Labs: CBC, BMP 04/21/18 06:20 04/21/18 06:20 INR, PTT INR 0.97 (0.83-1.09) 04/19/18 13:00 Assessment/Plan - Problems (1) HTN (hypertension) Assessment/Plan: Increase hydralazine to 50 mg bid. Continue [id number] 10 mg eaily. F/u BP and HR serailly (hx sick sinus syndrome; f/u carefully while on beta alexx; he has been on metoprolol ER 25 mg qd as outpatient).. Code(s): I10 - ESSENTIAL (PRIMARY) HYPERTENSION
--- NOTE | 2018-04-21 13:17 | PN ---
Teaching Attending Note Name of Resident: Ronald Gibbons ATTENDING PHYSICIAN STATEMENT I saw and evaluated the patient. I reviewed the resident's note and discussed the case with the resident. I agree with the resident's findings and plan as documented. SUBJECTIVE:asymptomatic. states no recurrent episodes of blurred vision. denies Cp, SOB, fever, chills, N/V/C/D OBJECTIVE: Last Vital Signs Temp Pulse Resp BP Pulse Ox 99 F 78 20 160/70 97 04/21/18 10:47 04/21/18 10:47 04/21/18 10:47 04/21/18 10:47 04/21/18 08:22 General NAD CV S1 S2 RRR +murmur Lungs CTA B/L no wheezing/rales/rhonchi ASSESSMENT AND PLAN: 77 yom with PMHx of extensive atherosclerotic disease, CAD s/p multiple PCI, last RCA PCI 10/2017, PAD s/p PCI, renal artery stenosis s/p PCI 2012, AAA, HLD, HTN, bladder tumor admitted for elective TURBT/Biopsy, found hypertensive as did not take his BP meds, noted with mild troponin elevation 1. Hypertensive urgency- likely in the setting of not taking his home meds, however appears to be not at goal at baseline. BP improved. pt appears to have poor knowledge on low salt diet. will have dietary eval to educate on foods to avoid or reduced. stress importance of medication compliance and that goal SBP should be closer to 130. and that 160 he was getting at home is too high. cont current regimen. should probably have eval by cardio prior to bx to ensure BP is table prior to procedure. 2. Elevated troponin- likely demand from HTN urgency. flat trend. no EKG changes. 3. Bladder ca s/p laser therapy- will need to reschedule TURBT as outpatient. f/ u urology as outpatient 4. CKD 5. PAD s/p PCI 6. JAMEL s/p PCI 7. SSS 8. DVT ppx- EAM 9. d/c home
[2018-04-21] MEDS: ISOSORBIDE MONONITRATE 60 MG TAB.SR.24H (FP) PO SCH (13:49)
[2018-04-21] MEDS: FERROUS SO4 325 MG TABLET (FP) PO SCH (13:49)
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
== END 2018-04-21 15:02 | disposition home or self-care (01) | DRG 305 ==
LOC: JASU-SURG 08:20 → JSAMEDAYSX 15:41 → J4W 17:10
PROVIDERS: ADMIT Internal Medicine Cardiovascular Disease; ATTEND Internal Medicine
DX: I16.0 Hypertensive urgency (principal); E24.8 Other Cushing's syndrome; I24.8 Other forms of acute ischemic heart disease; C78.7 Secondary malignant neoplasm of liver and intrahepatic bile duct; N18.2 Chronic kidney disease, stage 2 (mild); I13.0 Hypertensive heart and chronic kidney disease with heart failure and stage 1 through stage 4 chronic kidney disease, or unspecified chronic kidney disease; I70.1 Atherosclerosis of renal artery; Z95.5 Presence of coronary angioplasty implant and graft; I25.10 Atherosclerotic heart disease of native coronary artery without angina pectoris; C67.9 Malignant neoplasm of bladder, unspecified; N18.9 Chronic kidney disease, unspecified; Z85.51 Personal history of malignant neoplasm of bladder; Z87.891 Personal history of nicotine dependence; Z95.1 Presence of aortocoronary bypass graft; I73.9 Peripheral vascular disease, unspecified; D64.9 Anemia, unspecified
CPT/HCPCS: 36415; 80048; 82550; 82553; 82962; 83735; 84100; 84484; 85025; 85027; 85610; 93005; 93010; 94760; 94761

== ENCOUNTER 2018-11-09 09:02 | Inpatient (IN) | payer OTHER ==
--- NOTE | 2018-11-09 09:33 | PDOC ---
History of Present Illness - General Chief Complaint: Weakness Stated Complaint: LOSS OF APPETITE,FORGETFULNESS Time Seen by Provider: 11/09/18 09:32 History Source: Patient Exam Limitations: No Limitations - History of Present Illness Initial Comments: 11/09/18 09:33 Mr Mercer is a 77 yo M who presents to the ER with a complaint of weakness The patient states that 8 days ago he noted a high fever (unable to tell me how high). Pt states that over the past 8 days he had felt weak. 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 HEAD, EYES, EARS, NOSE AND THROAT: No: change in vision, ear pain, discharge, sore throat CARDIOVASCULAR: No: chest pain, lightheadedness, palpitations RESPIRATORY: No: cough, shortness of breath, wheezing GASTROINTESTINAL: No: nausea, vomiting, diarrhea, abdominal cramping GENITOURINARY: No: dysuria, hematuria, frequency, urgency, flank pain. MUSCULOSKELETAL: No: back pain, neck pain, joint pain, muscle swelling or pain SKIN: No: lesions, pallor, rash or easy bruising. NEUROLOGIC: Yes: weakness No: headache, vertigo, paresthesias ENDOCRINE: No: unexplained weight gain or loss HEMATOLOGIC/LYMPHATIC: No: anemia, easy bleeding, swelling nodes. PE: GENERAL: The patient is in no acute distress, he is weak, sleeps on exam but is arousable to voice. HEAD: Normal with no signs of trauma. EYES: PERRLA, EOMI, sclera anicteric, conjunctiva clear. ENT: Ears normal, nares patent, oropharynx clear without exudates. Dry mucous membranes. Very thick white substance on tongue NECK: Normal range of motion, supple without lymphadenopathy, no nuchal rigidity LUNGS: Breath sounds equal, clear to auscultation bilaterally. No wheezes, and no crackles. Intermittent coughing on examination HEART:Regular rate and rhythm, normal S1 and S2 without murmur, rub or gallop. ABDOMEN: Soft, nontender, normoactive bowel sounds. No guarding, no rebound. EXTREMITIES: Normal range of motion, no edema. NEUROLOGICAL: Cranial nerves II through XII grossly intact. Normal speech. No focal neurological deficits. MUSCULOSKELETAL: Back non-tender to palpation, No CVA tenderness SKIN: No rashes or lesions noted. 11/09/18 09:35 11/09/18 09:36 11/09/18 09:54 11/09/18 09:59 Past History - Past Medical History Allergies/Adverse Reactions: Allergies Allergy/AdvReac Type Severity Reaction Status Date / Time No Known Allergies Allergy Verified 11/09/18 11:05 Home Medications: Ambulatory Orders Amlodipine Besylate 10 mg PO DAILY 04/16/18 Aspirin 81 mg PO DAILY 04/16/18 Clopidogrel Bisulfate [Clopidogrel] 75 mg PO DAILY 04/16/18 Donepezil HCl 5 mg PO DAILY 04/16/18 Isosorbide Mononitrate [Isosorbide Mononitrate ER] 60 mg PO DAILY 04/16/18 Tamsulosin HCl 0.4 mg PO DAILY 04/16/18 Gabapentin 600 mg PO TID PRN 04/19/18 Metoprolol Succinate [Toprol Xl] 25 mg PO DAILY 04/19/18 Ranitidine [Zantac -] 150 mg PO BID 04/19/18 Albuterol 0.083% Nebulizer Amy [Ventolin 0.083% Nebulizer Soln -] 1 amp IH Q4H PRN 11/09/18 Carbamazepine 200 mg PO TID 11/09/18 Pravastatin Sodium [Pravachol (Nf)] 80 mg PO HS 11/09/18 hydrALAZINE HCL [Apresoline -] 50 mg PO BID 11/09/18 Asthma: Yes (bronchitis) Cancer: Yes (bladder cancer) COPD: Yes Diabetes: Yes HTN: Yes Hypercholesterolemia: Yes - Suicide/Smoking/Psychosocial Hx Smoking History: Former smoker Have you smoked in the past 12 months: No If you are a former smoker, when did you quit?: 25 years ago Information on smoking cessation initiated: No Hx Alcohol Use: No Drug/Substance Use Hx: No Substance Use Type: None Hx Substance Use Treatment: No *Physical Exam - Vital Signs Last Vital Signs Temp Pulse Resp BP Pulse Ox 100.9 F H 97 H 18 137/77 95 11/09/18 09:05 11/09/18 09:05 11/09/18 09:05 11/09/18 09:05 11/09/18 09:05 ED Treatment Course - LABORATORY CBC & Chemistry Diagram: 11/09/18 10:12 11/09/18 09:34 Medical Decision Making - Medical Decision Making 11/09/18 10:07 77 yo M presenting with a complaint of weakness Pt found to be febrile on examination He denies localizing symptoms DD: Viral syndrome, Bacterial infection (Pneumonia, UTI, intra-abdominal process, doubt [employer] infection given chronicity of symptoms) Will do Sepsis order set IVF Tylenol CXR Re assess 11/09/18 10:27 EKG: NSR rate of 88 bpm, LVH, LAD, no st elevation, t wave inversion in V1 as compared to EKG from 2018 11/09/18 10:29 11/09/18 10:29 11/09/18 10:55 Laboratory Tests 11/09/18 11/09/18 10:12 10:12 INR 1.22 H VBG pH 7.40 POC VBG pCO2 39.9 L POC VBG pO2 51.4 H 11/09/18 12:52 CT head - microvascular ischemic changes, no acute ICH or Mass 11/09/18 14:05 Laboratory Tests 11/09/18 11/09/18 09:34 09:34 Creatine Kinase 90 CK-MB (CK-2) < 1.0 Troponin I 0.20 H 11/09/18 14:05 Laboratory Tests 11/09/18 09:34 Sodium 137 Potassium 4.3 Chloride 102 Carbon Dioxide 25 Anion Gap 10 BUN 37.7 H Creatinine 2.2 H Random Glucose 141 H AST 205 H ALT 242 H Alkaline Phosphatase 120 H 11/09/18 14:06 Laboratory Tests 11/09/18 10:12 WBC 9.2 Hgb 10.7 L Hct 31.9 L D Plt Count [address] chest - cardiomegaly, no infiltrate, aneurysm CT abd and pelvis - GB distention without wall thickening or PCCF, Left ureteral edema and periureteral stranding, bilateral hernias containing fat only , abdominal aortic aneurysmal dilitation 11/09/18 14:16 UA still pending 11/09/18 14:52 Laboratory Tests 11/09/18 14:00 Urine Nitrite Negative Ur Leukocyte Esterase 2+ H Urine WBC (Auto) 62 Urine RBC (Auto) 3 U Epithel Cells (Auto) 2.0 Urine Bacteria (Auto) 657.3 *DC/Admit/Observation/Transfer Diagnosis at time of Disposition: CLOVIS (acute kidney injury), Dehydration UTI (urinary tract infection) Qualifiers: Urinary tract infection type: site unspecified Hematuria presence: without hematuria Qualified Code(s): N39.0 - Urinary tract infection, site not specified Fever Qualifiers: Fever type: unspecified Qualified Code(s): R50.9 - Fever, unspecified - Discharge Dispostion Condition at time of disposition: Stable Decision to Admit order: Yes - Referrals - Patient Instructions - Post Discharge Activity
[2018-11-09] MEDS ORDERED: SODIUM CHLORIDE 1,000 ML IV STA ×2 (09:54→12:36)
[2018-11-09] MEDS ORDERED: ACETAMINOPHEN 1000 MG/100 ML VIAL (NON FORMULARY) IVPB ONE (09:54)
[2018-11-09] MEDS ORDERED: ACETAMINOPHEN INJECTION 100 ML IVPB ONE (10:33)
[2018-11-09 10:38] LABS: VENOUS PC02 39.9 mmHg (41-51); VENOUS PH 7.4 (7.31-7.41); VENOUS PO2 51.4 mmHg (30-40)
[2018-11-09 10:50] LABS: INR 1.22 (0.83-1.09); PROTHROMBIN TIME (PATIENT) 14.4 SEC (9.7-13.0)
[2018-11-09 10:53] LABS: ACTIVATED PTT 28.4 SECONDS (25.2-36.5)
[2018-11-09 10:55] LABS: BASO % 0.4 % (0-2.0); EOS % 0.1 % (0-4.5); HEMATOCRIT 31.9 % (35.4-49); HEMOGLOBIN 10.7 GM/dL (11.7-16.9); LYMPH % 7.6 % (8-40); MCH 31.5 pg (25.7-33.7); MCHC 33.5 g/dl (32.0-35.9); MEAN CELL VOLUME 94.1 fl (80-96); MEAN PLT VOLUME 9.5 fl (7.5-11.1); MONO % 16.2 % (3.8-10.2); NEUT % 75.7 % (42.8-82.8); PLATELET COUNT 184 K/MM3 (134-434); RBC 3.39 M/mm3 (4.00-5.60); RDW 13.6 % (11.9-15.9); WHITE BLOOD COUNT 9.2 K/mm3 (4.0-10.0)
[2018-11-09 11:09] LABS: ALBUMIN 2.8 g/dl (3.4-5.0); ALK PHOS 120 U/L (45-117); ANION GAP 10 MMOL/L (8-16); BILIRUBIN,TOTAL 0.6 mg/dL (0.2-1); BLOOD UREA NITROGEN 37.7 mg/dL (7-18); CALCIUM 8.5 mg/dL (8.5-10.1); CHLORIDE 102 mmol/L (98-107); CO2 25 mmol/L (21-32); CREATININE 2.2 mg/dL (0.55-1.3); GLUCOSE,RANDOM 141 mg/dL (74-106); POTASSIUM 4.3 mmol/L (3.5-5.1); SGOT/AST 205 U/L (15-37); SGPT/ALT 242 U/L (13-61); SODIUM 137 mmol/L (136-145); TOT PROT 7.7 g/dl (6.4-8.2)
[2018-11-09 14:30] LABS: HYALINE CASTS 38 /lpf (0-8); URINE APPEARANCE CLOUDY; URINE BACTERIA 657.3 /hpf (NEGATIVE); URINE BILIRUBIN 1+ (NEGATIVE); URINE COLOR DK YELLOW; URINE GLUCOSE (UA) NEGATIVE (NEGATIVE); URINE KETONE NEGATIVE (NEGATIVE); URINE LEUK ESTERASE 2+ (NEGATIVE); URINE NITRITE NEGATIVE (NEGATIVE); URINE PROTEIN 2+ (NEGATIVE); URINE RBC 3 /hpf (0-4); URINE WBC 62 /hpf (0-5)
[2018-11-09] MEDS ORDERED: CEFTRIAXONE 1 GM in DEXTROSE 5%-WATER - 50 ML IVPB ONE (14:51)
[2018-11-09] MEDS ORDERED: CEFTRIAXONE 1 GM/50 ML BAG ONE (14:58)
[2018-11-09] MEDS ORDERED: ACETAMINOPHEN 650 MG/20.3 ML ORAL SOLUTION (CUPS) PO PRN (16:10)
[2018-11-09] MEDS ORDERED: SODIUM CHLORIDE 1,000 ML IV SCH (16:15)
[2018-11-09] MEDS ORDERED: ALBUTEROL SO4 0.083% IH SOL 2.5 MG/3 ML VIAL.NEB. NEB PRN (16:23)
[2018-11-09] MEDS ORDERED: CLOPIDOGREL BISULFATE 75 MG TABLET (FP) PO SCH (16:32)
--- NOTE | 2018-11-09 16:32 | HP ---
CHIEF COMPLAINT: urinary incontinence x 7 days PCP: TARA Tucker [phone] HISTORY OF PRESENT ILLNESS: 77 y/o M with hx HTN, HLD, CAD s/p PCI x 7 stents, loop recorder, PAD, bladder CA sp laser tx, L external iliac stent, L renal a stent, who presents to the ED c/o urinary incontinence over the past seven days. As per pt, this week, he has had urinary incontinence. States that he his urine has been malodorous, w/ hematuria, and he has been unable to make it to the restroom in time, subsequently "ruining his couch." During this time, he has also had weakness, decreased PO intake, subjective fever and chills. According to and ED staff , pt was AMS upon arrival and was "obtunded." Upon my exam, pt conversant, alert and oriented. Denies RAE, SOB, chest pain or pressure or changes in bowel function. Denies dysuria. At baseline, pt lives at home with family. Ambulates using a cane. Was scheduled to see his urologist, Dr. Madrigal for a check up today however due to his sx, came to ED instead. ER course was notable for: (1) iv tylenol (2) rocephin 1g x 1 (3) ns 1L , cont'd on 125 cc/hr Recent Travel: denies PAST MEDICAL HISTORY: as above PAST SURGICAL HISTORY: as above, CAD w/stents, L ext iliac stent Social History: used to work previously as a [employer]. Smoking: denies Alcohol: used to drink 1 quart of vodka for "many years" quit 8 yrs ago Drugs: denies Family History: father - HTN, DM Allergies Pollen - seasonal HOME MEDICATIONS: Home Medications Medication Instructions Recorded Amlodipine Besylate 10 mg PO DAILY 04/16/18 Aspirin 81 mg PO DAILY 04/16/18 Clopidogrel Bisulfate [Clopidogrel] 75 mg PO DAILY 04/16/18 Donepezil HCl 5 mg PO DAILY 04/16/18 Isosorbide Mononitrate [Isosorbide 60 mg PO DAILY 04/16/18 Mononitrate ER] Tamsulosin HCl 0.4 mg PO DAILY 04/16/18 Gabapentin 600 mg PO TID PRN 04/19/18 Metoprolol Succinate [Toprol Xl] 25 mg PO DAILY 04/19/18 Ranitidine [Zantac -] 150 mg PO BID 04/19/18 Albuterol 0.083% Nebulizer Amy 1 amp IH Q4H PRN 11/09/18 [Ventolin 0.083% Nebulizer Soln -] Carbamazepine 200 mg PO TID 11/09/18 Pravastatin Sodium [Pravachol (Nf)] 80 mg PO HS 11/09/18 hydrALAZINE HCL [Apresoline -] 50 mg PO BID 11/09/18 meds verified with [facility]. however pt meds at bedside do not match from [facility] donepezil, zantac not at [facility] need to find out where getting meds REVIEW OF SYSTEMS CONSTITUTIONAL: Absent: fever, chills, diaphoresis, generalized weakness, malaise, loss of appetite, weight change HEENT: Absent: rhinorrhea, nasal congestion, throat pain, throat swelling, difficulty swallowing, mouth swelling, ear pain, eye pain, visual changes CARDIOVASCULAR: Absent: chest pain, syncope, palpitations, irregular heart rate, lightheadedness , peripheral edema RESPIRATORY: Absent: cough, shortness of breath, dyspnea with exertion, orthopnea, wheezing, stridor, hemoptysis GASTROINTESTINAL: Absent: abdominal pain, abdominal distension, nausea, vomiting, diarrhea, constipation, melena, hematochezia GENITOURINARY: Absent: dysuria, frequency, urgency, hesitancy, hematuria, flank pain, genital pain MUSCULOSKELETAL: Absent: myalgia, arthralgia, joint swelling, back pain, neck pain SKIN: Absent: rash, itching, pallor HEMATOLOGIC/IMMUNOLOGIC: Absent: easy bleeding, easy bruising, lymphadenopathy, frequent infections ENDOCRINE: Absent: unexplained weight gain, unexplained weight loss, heat intolerance, cold intolerance NEUROLOGIC: Absent: headache, focal weakness or paresthesias, dizziness, unsteady gait, seizure, mental status changes, bladder or bowel incontinence PSYCHIATRIC: Absent: anxiety, depression, suicidal or homicidal ideation, hallucinations. PHYSICAL EXAMINATION Vital Signs 11/09/18 09:05 Temperature 100.9 F H Pulse Rate 97 H Pulse Rate [ Right Radial] Respiratory 18 Rate Blood Pressure 137/77 Blood Pressure [Right Arm] O2 Sat by Pulse 95 Oximetry (%) 11/09/18 13:16 Temperature 98.4 F Pulse Rate Pulse Rate [ 66 Right Radial] Respiratory 18 Rate Blood Pressure Blood Pressure 130/67 [Right Arm] O2 Sat by Pulse 94 L Oximetry (%) GENERAL: AAOX 3 . in NAD . +tremulous HEAD: Normal with no signs of trauma. EYES: Pupils equal, round and reactive to light, extraocular movements intact, sclera anicteric, conjunctiva clear. No lid lag. EARS, NOSE, THROAT: Ears normal, nares patent, oropharynx clear without exudates. Dry mucous membranes. NECK: Normal range of motion, supple LUNGS: Breath sounds equal, clear to auscultation bilaterally. No wheezes, and no crackles. No accessory muscle use. HEART: Regular rate and rhythm, normal S1 and S2 without murmur, rub or gallop. ABDOMEN: Soft, nontender, not distended, normoactive bowel sounds MUSCULOSKELETAL: +decr ROM LE 2/2 weakness. no CVA tenderness. LOWER EXTREMITIES: 2+ pt pulses, warm, well-perfused. No calf tenderness. No peripheral edema. NEUROLOGICAL: Cranial nerves II-XII intact. PSYCHIATRIC: Cooperative. Laboratory Tests 11/09/18 11/09/18 11/09/18 09:34 09:34 10:12 WBC 9.2 Hgb 10.7 L Hct 31.9 L D Plt Count 184 D VBG pH BUN 37.7 H Creatinine 2.2 H AST 205 H ALT 242 H Alkaline Phosphatase 120 H Troponin I 0.20 H Ur Leukocyte Esterase Urine Bacteria (Auto) 11/09/18 11/09/18 11/09/18 10:12 10:12 14:00 Plt Count PT with INR 14.40 H INR 1.22 H PTT (Actin FS) 28.4 VBG pH 7.40 Ur Leukocyte Esterase 2+ H Urine WBC (Auto) 62 Urine RBC (Auto) 3 Urine Casts (Auto) 38 U Pathogenic Cast Auto Coarse granular cast U Epithel Cells (Auto) 2.0 Urine Bacteria (Auto) 657.3 CXR: weak inspiration, large heart, prom central markings, +loop recorder, no infiltrate. degenerative changes Head CT: no acute changes. chronic moderate periventricular and subcortical chronic microvasc changes. chest CT w/o contrast: no intrathoracic path. mild cardiomegaly. atherosclerotic coronary a calcifications. minimal to mild fusiform aneurysmal dilation descending aorta 3.4cm diam. CTAP w/o contrast: 1. mild L ureteral dilation at level of urinary bladder w possible subtle periureteral soft tissue stranding. possible recently passed calculus.consider cystoscopy. no hydro 2. mild GB overdistension without CT evidence of acute rc. can correlate with US 3. infrarenal aortic aneurysm with 3.8cm diam 4. b/l common iliac a aneurysms each 2.3cm diam 5. +L external iliac a stent 6. +L renal a stent 7. mild adrenal gland thickening: hyperplasia vs. subcm adenomas. biochem eval and [address]/mri to document stability. EKG: NSR rate 88bpm. LVH, no st elevation, t wave inversion in V1 compared to previous but not in contiguous leads ASSESSMENT/PLAN: 77 y/o M with hx HTN, HLD, CAD s/p PCI x 7 stents, loop recorder, PAD, bladder CA sp laser tx, L external iliac stent, L renal a stent, who presents to the ED c/o urinary incontinence over the past seven days. #UTI complicated by possible passed calculus -w/ urinary frequency, +UA, initially febrile. mild L ureteral dilation, periureteral soft tissue stranding may indicate passed stone. will still strain urine -c/w rocephin -c/w flomax -adequate IVF -f/u ucx, blood cx -coags done. T+S -tylenol PRN for fever/pain -uro consult: Dr. Madrigal. has seen previously. may need cysto #CLOVIS vs. CLOVIS on CKD -will need to get baseline Cr from primary -cont w/IVF, trend Cr. if does not improve, can send for lytes, Mattie, Ucr, renal sono etc. #Transaminitis -with hx heavy alcohol intake in past -f/u abd sono, hepatitis panel #Tropinemia likely 2/2 demand -0.20. cont to trend -currently w/o chest pain -cardio consult: Dr. Elaine #HTN-controlled -c/w norvasc, toprol -hold hydralazine as pt was d/c on previously however not w patient at bedside. can reintroduce but careful as pt may be naive to med. BP currently controlled. #HLD -hold pravastatin as w elevated LFTs #CAD s/p PCI x 7 stents -c/w asa, plavix. will hold tomorrow dose plavix in case of intervention -c/w imdur #bladder CA -s/p laser tx multiple yrs ago -cont f/u with Dr. Madrigal #?seizures -will need to verify with PCP use -c/w carbamezepine for now #mild adrenal gland thickening -hyperplasia vs. subcm adenomas -biochem eval and 3 month follow up with ct/mri #F/E/N IV NS 100 cc/hr continue to follow lytes na controlled diet. NPO after MN in case of procedure #PPX SCD's in case of procedure no heparin bc hematuria #Code status as per , pt makes decisions on own. full code #Dispo admit to tele Visit type - Emergency Visit Emergency Visit: Yes ED Registration Date: 11/08/18 Care time: The patient presented to the Emergency Department on the above date and was hospitalized for further evaluation of their emergent condition. - New Patient This patient is new to me today: Yes Date on this admission: 11/10/18 - Critical Care Critical Care patient: No
--- NOTE | 2018-11-09 18:21 | PN ---
Teaching Attending Note Name of Resident: Mariel Thompson ATTENDING PHYSICIAN STATEMENT I saw and evaluated the patient. I reviewed the resident's note and discussed the case with the resident. I agree with the resident's findings and plan as documented. SUBJECTIVE: Feels well - no complaints currently. Oriented x 3 but had to be reminded of his presenting symptoms which he agreed with - urinary incontinence , malodorous urine, hematuria (now resolved). Denies fever/chills/nausea/ vomiting/diarrhea. OBJECTIVE: Afebrile, Hemodynamically Stable. Last Vital Signs Temp Pulse Resp BP Pulse Ox 98.4 F 66 18 130/67 94 L 11/09/18 13:16 11/09/18 13:16 11/09/18 13:16 11/09/18 13:16 11/09/18 13:16 HEENT - Atraumatic, Normocephalic. Heart - S1, S2, RRR Lungs - decreased air eentry at bases Abdomen - Soft, non-tender. Bowel Sounds normal. Neuro - AAO x 3. Tone/Power normal all 4 extremities Extremities - No edema, no calf tenderness. Laboratory Results - last 24 hr 11/09/18 11/09/18 11/09/18 09:34 09:34 10:12 WBC 9.2 RBC 3.39 L Hgb 10.7 L Hct 31.9 L D MCV 94.1 MCH 31.5 MCHC 33.5 RDW 13.6 Plt Count 184 D MPV 9.5 Absolute Neuts (auto) 7.0 Neutrophils % 75.7 D Lymphocytes % 7.6 L D Monocytes % 16.2 H Eosinophils % 0.1 D Basophils % 0.4 Nucleated RBC % 0 PT with INR INR PTT (Actin FS) VBG pH POC VBG pCO2 POC VBG pO2 VBG HCO3 VBG O2 Sat (Malik) VBG Base Excess Sodium 137 Potassium 4.3 Chloride 102 Carbon Dioxide 25 Anion Gap 10 BUN 37.7 H Creatinine 2.2 H Est GFR (CKD-EPI)AfAm 32.52 Est GFR (CKD-EPI)NonAf 28.06 Random Glucose 141 H Lactic Acid Calcium 8.5 Total Bilirubin 0.6 AST 205 H ALT 242 H Alkaline Phosphatase 120 H Creatine Kinase 90 CK-MB (CK-2) < 1.0 Troponin I 0.20 H Total Protein 7.7 Albumin 2.8 L Urine Color Urine Appearance Urine pH Ur Specific [place] Urine Protein Urine Glucose (UA) Urine Ketones Urine Blood Urine Nitrite Urine Bilirubin Urine Urobilinogen Ur Leukocyte Esterase Urine WBC (Auto) Urine RBC (Auto) Urine Casts (Auto) U Pathogenic Cast Auto U Epithel Cells (Auto) U Sm Round Cell (Auto) Urine Crystals (Auto) Urine Bacteria (Auto) 11/09/18 11/09/18 11/09/18 10:12 10:12 10:12 WBC RBC Hgb Hct MCV MCH MCHC RDW Plt Count MPV Absolute Neuts (auto) Neutrophils % Lymphocytes % Monocytes % Eosinophils % Basophils % Nucleated RBC % PT with INR 14.40 H INR 1.22 H PTT (Actin FS) 28.4 VBG pH 7.40 POC VBG pCO2 39.9 L POC VBG pO2 51.4 H VBG HCO3 25.5 VBG O2 Sat (Malik) 82.7 H VBG Base Excess 1.5 Sodium Potassium Chloride Carbon Dioxide Anion Gap BUN Creatinine Est GFR (CKD-EPI)AfAm Est GFR (CKD-EPI)NonAf Random Glucose Lactic Acid 0.7 Calcium Total Bilirubin AST ALT Alkaline Phosphatase Creatine Kinase CK-MB (CK-2) Troponin I Total Protein Albumin Urine Color Urine Appearance Urine pH Ur Specific [place] Urine Protein Urine Glucose (UA) Urine Ketones Urine Blood Urine Nitrite Urine Bilirubin Urine Urobilinogen Ur Leukocyte Esterase Urine WBC (Auto) Urine RBC (Auto) Urine Casts (Auto) U Pathogenic Cast Auto U Epithel Cells (Auto) U Sm Round Cell (Auto) Urine Crystals (Auto) Urine Bacteria (Auto) 11/09/18 14:00 WBC RBC Hgb Hct MCV MCH MCHC RDW Plt Count MPV Absolute Neuts (auto) Neutrophils % Lymphocytes % Monocytes % Eosinophils % Basophils % Nucleated RBC % PT with INR INR PTT (Actin FS) VBG pH POC VBG pCO2 POC VBG pO2 VBG HCO3 VBG O2 Sat (Malik) VBG Base Excess Sodium Potassium Chloride Carbon Dioxide Anion Gap BUN Creatinine Est GFR (CKD-EPI)AfAm Est GFR (CKD-EPI)NonAf Random Glucose Lactic Acid Calcium Total Bilirubin AST ALT Alkaline Phosphatase Creatine Kinase CK-MB (CK-2) Troponin I Total Protein Albumin Urine Color Dk yellow Urine Appearance Cloudy Urine pH 5.0 Ur Specific [place] 1.021 Urine Protein 2+ H Urine Glucose (UA) Negative Urine Ketones Negative Urine Blood Negative Urine Nitrite Negative Urine Bilirubin 1+ H Urine Urobilinogen 2.0 Ur Leukocyte Esterase 2+ H Urine WBC (Auto) 62 Urine RBC (Auto) 3 Urine Casts (Auto) 38 U Pathogenic Cast Auto Coarse granular cast U Epithel Cells (Auto) 2.0 U Sm Round Cell (Auto) No Result Required. Urine Crystals (Auto) No Result Required. Urine Bacteria (Auto) 657.3 Current Medications Generic Name Dose Route Start Last Admin Trade Name Freq PRN Reason Stop Dose Admin Acetaminophen 650 mg 11/09/18 16:10 Tylenol Oral Solution - PO Q6H PRN FEVER Albuterol Sulfate 1 amp 11/09/18 16:23 Ventolin 0.083% Nebulizer Soln - NEB Q4H PRN SHORTNESS OF BREATH Amlodipine Besylate 10 mg 11/10/18 10:00 Norvasc - PO DAILY [facility] [place] Aspirin 81 mg 11/10/18 10:00 Asa - PO DAILY [facility] Carbamazepine 200 mg 11/09/18 22:00 Tegretol - PO TID [facility] [place] Clopidogrel Bisulfate 75 mg 11/09/18 16:32 Plavix - PO 11/10/18 10:00 DAILY [facility] [place] Ceftriaxone Sodium 1 gm/ 50 mls @ 100 mls/hr 11/10/18 15:00 Dextrose IVPB DAILY [facility] [place] Sodium Chloride 1,000 mls @ 100 mls/hr 11/09/18 17:33 Normal Saline - IV ASDIR [facility] [place] Isosorbide Mononitrate 60 mg 11/10/18 10:00 Imdur - PO DAILY [facility] Metoprolol Succinate 25 mg 11/10/18 10:00 Toprol Xl - PO DAILY [facility] [place] Tamsulosin HCl 0.4 mg 11/10/18 10:00 Flomax - PO DAILY [facility] Home Medications Medication Instructions Recorded Amlodipine Besylate 10 mg PO DAILY 04/16/18 Aspirin 81 mg PO DAILY 04/16/18 Clopidogrel Bisulfate [Clopidogrel] 75 mg PO DAILY 04/16/18 Donepezil HCl 5 mg PO DAILY 04/16/18 Isosorbide Mononitrate [Isosorbide 60 mg PO DAILY 04/16/18 Mononitrate ER] Tamsulosin HCl 0.4 mg PO DAILY 04/16/18 Gabapentin 600 mg PO TID PRN 04/19/18 Metoprolol Succinate [Toprol Xl] 25 mg PO DAILY 11/26/18 Ranitidine [Zantac -] 150 mg PO BID 04/19/18 Albuterol 0.083% Nebulizer Amy 1 amp IH Q4H PRN 11/09/18 [Ventolin 0.083% Nebulizer Soln -] Carbamazepine 200 mg PO TID 11/09/18 Pravastatin Sodium [Pravachol (Nf)] 80 mg PO HS 11/09/18 hydrALAZINE HCL [Apresoline -] 50 mg PO BID 11/09/18 ASSESSMENT AND PLAN: 77 year old male with HTN, HLD, CAD s/p PCI x 7 stents, Hx of Bladder CA s/p Tx , PAD s/p L external iliac stent, s/p L renal artery stent, presents with urinary incontinence, hematuria, malodorous urine, weakness, lethargy, confusion , decreased appetite. 1. Acute Metabolic Encephalopathy secondary to UTI Urine Cx pending CT Head - moderate periventricular and subcortical chronic microvascular changes CT A/P - mild ureteral dilation with possible periureteral soft tissue standing. Will consult Urology. IV Hydration Empirically started on Ceftriaxone pending Urine Cx results. 2. CLOVIS on CKD 3 - likely due to dehydration/UTI Hydrate overnight and monitor renal response. 3. Elevated Troponin ? sec to demand ischemia No chest pain ECG - no acute changes Will monitor serial troponin measurements and monitor on Tele. Cardiology consulted. 4. Elevated Transaminases, etiology unclear Will order Abdominal US and Hepatitis panel. Statin held. 5. 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 6. PAD/s/p L ext iliac a stent/L renal a stent - continue Aspirin, Plavix 7. Adrenal Gland thickening - Hyperplasia vs Subcutaneous Adenoma - incidental finding - for outpatient 3 month follow up imaging eval (CT/MRI) 8. HTN - Continue Norvasc, Toprol. Hydralazine held currently due to borderline BP. 9. HLD - Statin held due to elevated LFTs. 10. CAD s/p PCI/Stent - Continue Aspirin, Plavix, Imdur, Toprol. 11. Hx Bladder Ca - follows with urology Dr. Dwaine Kim 12. Unclear whether patient has seizure history - on Carbamazepine - will continue - need to clarify reason for carbamazepine. DVT PX - SCDs. Heparin held given reported hematuria
[2018-11-09 18:36] VITALS: BMI 23.3
[2018-11-09] MEDS: SODIUM CHLORIDE 1,000 ML IV SCH (20:00)
[2018-11-09] MEDS: carBAMazepine 200 MG TABLET PO SCH (22:20)
[2018-11-10] MEDS ORDERED: ACETAMINOPHEN 650 MG/20.3 ML ORAL SOLUTION (CUPS) PO PRN (01:10)
[2018-11-10] MEDS: SODIUM CHLORIDE 1,000 ML IV SCH ×3 (02:21→22:03)
[2018-11-10] MEDS: carBAMazepine 200 MG TABLET PO SCH ×3 (05:52→22:06)
[2018-11-10 06:57] LABS: BASO % 0.2 % (0-2.0); EOS % 0.2 % (0-4.5); HEMATOCRIT 33.1 % (35.4-49); LYMPH % 7.4 % (8-40); MCH 31.7 pg (25.7-33.7); MCHC 33.3 g/dl (32.0-35.9); MEAN CELL VOLUME 95.3 fl (80-96); MEAN PLT VOLUME 9.8 fl (7.5-11.1); MONO % 10.7 % (3.8-10.2); NEUT % 81.5 % (42.8-82.8); PLATELET COUNT 178 K/MM3 (134-434); RBC 3.47 M/mm3 (4.00-5.60); RDW 13.7 % (11.9-15.9); WHITE BLOOD COUNT 12.8 K/mm3 (4.0-10.0)
[2018-11-10 07:43] LABS: ALBUMIN 2.5 g/dl (3.4-5.0); ALK PHOS 135 U/L (45-117); ANION GAP 10 MMOL/L (8-16); BILIRUBIN,TOTAL 0.5 mg/dL (0.2-1); BLOOD UREA NITROGEN 31.1 mg/dL (7-18); CALCIUM 8.2 mg/dL (8.5-10.1); CHLORIDE 111 mmol/L (98-107); CO2 20 mmol/L (21-32); CREATININE 1.7 mg/dL (0.55-1.3); GLUCOSE,RANDOM 127 mg/dL (74-106); MAGNESIUM 2.4 mg/dL (1.8-2.4); PHOSPHOROUS 4.3 mg/dL (2.5-4.9); POTASSIUM 4.7 mmol/L (3.5-5.1); SGOT/AST 241 U/L (15-37); SGPT/ALT 267 U/L (13-61); SODIUM 141 mmol/L (136-145); TOT PROT 7.2 g/dl (6.4-8.2)
--- NOTE | 2018-11-10 08:02 | CON.GU ---
Consult Consult Specialty:: urology Reason for Consultation:: uti/gross hemauria/acute renal injury - History of Present Illness Chief Complaint: uti with gross hematuria History of Present Illness: Patient is a 77 year old male with history of transitional cell carcinoma of the bladder currently with no evidence of disease on last cystoscopy. The patient noted severe urinary urgency, frequency, nocturia, with gross hematuria and dysuria. The patient had fever to 103. The patient also experienced loss of appetite with reduced fluid consumption. He is currently improving and is voiding with improved symptoms. The patient denies flank pain or nausea or vomiting. - History Source History Provided By: Patient Limitations to Obtaining History: No Limitations - Alcohol/Substance Use Hx Alcohol Use: No - Smoking History Smoking history: Former smoker Have you smoked in the past 12 months: No If you are a former smoker, when did you quit?: 25 years ago Home Medications - Allergies Allergies/Adverse Reactions: Allergies Allergy/AdvReac Type Severity Reaction Status Date / Time No Known Allergies Allergy Verified 11/09/18 11:05 - Home Medications Home Medications: Ambulatory Orders Amlodipine Besylate 10 mg PO DAILY 04/16/18 Aspirin 81 mg PO DAILY 04/16/18 Clopidogrel Bisulfate [Clopidogrel] 75 mg PO DAILY 04/16/18 Donepezil HCl 5 mg PO DAILY 04/16/18 Isosorbide Mononitrate [Isosorbide Mononitrate ER] 60 mg PO DAILY 04/16/18 Tamsulosin HCl 0.4 mg PO DAILY 04/16/18 Gabapentin 600 mg PO TID PRN 04/19/18 Metoprolol Succinate [Toprol Xl] 25 mg PO DAILY 04/19/18 Ranitidine [Zantac -] 150 mg PO BID 04/19/18 Albuterol 0.083% Nebulizer Amy [Ventolin 0.083% Nebulizer Soln -] 1 amp IH Q4H PRN 11/09/18 Carbamazepine 200 mg PO TID 11/09/18 Pravastatin Sodium [Pravachol (Nf)] 80 mg PO HS 11/09/18 hydrALAZINE HCL [Apresoline -] 50 mg PO BID 11/09/18 Physical Exam- Vital Signs: Vital Signs Temperature 98.1 F 11/10/18 05:44 Pulse Rate 71 11/10/18 05:44 Respiratory Rate 20 06/19/19 05:44 Blood Pressure 134/68 11/10/18 05:44 O2 Sat by Pulse Oximetry (%) 96 11/09/18 21:00 Constitutional: Yes: No Distress, Calm Eyes: Yes: WNL, Conjunctiva Clear, EOM Intact HENT: Yes: WNL, Atraumatic, Normocephalic Neck: Yes: WNL, Supple, Trachea Midline Cardiovascular: Yes: WNL Respiratory: Yes: WNL Gastrointestinal: Yes: WNL, Normal Bowel Sounds Renal/: Yes: WNL Kidneys: Yes: WNL Pelvis: Yes: Bladder Non Palpable Scrotum: Yes: WNL Penis: Yes: WNL Prostate Exam: Yes: Asymmetrical, Nodules (consistent with BCG intravesical treatment in past; no fluctuance noted) Musculoskeletal: Yes: WNL Extremities: Yes: WNL Labs: CBC, BMP 11/10/18 06:16 Imaging - Results Cat Scan: Report Reviewed Ultrasound: Report Reviewed (no evidence of stone or hydronephrosis; left periureteral edema and stranding consistent with hemorrhagic cystitis) Assessment/Plan impression acute renal injury secondary to dehydration hemorrhagic cystitis history of TCC of bladder bph plan hydrate and follow creatinine iv antibiotics continue flomax will follow up as outpatient
[2018-11-10] MEDS: metoPROLOL SUCCINATE 25 MG TAB.SR.24H (FP) PO SCH (09:45)
[2018-11-10] MEDS: ASPIRIN 81 MG CHEWABLE TABLETS PO SCH (09:45)
[2018-11-10] MEDS: TAMSULOSIN HCL 0.4 MG CAP PO SCH (09:45)
[2018-11-10] MEDS: ISOSORBIDE MONONITRATE 60 MG TAB.SR.24H (FP) PO SCH (09:45)
[2018-11-10] MEDS: amLODIPine BESYLATE 10 MG TABLET (FP) PO SCH (09:45)
[2018-11-10] MEDS ORDERED: CLOPIDOGREL BISULFATE 75 MG TABLET (FP) PO SCH (10:00)
--- NOTE | 2018-11-10 10:01 | CON.CARD ---
Consult Consult Specialty:: cardiology Reason for Consultation:: elevated TNI - History of Present Illness History of Present Illness: Mr Mercer is a 77 yo man who presents to the ER with a complaint of weakness The patient states that 8 days ago he noted a high fever (unable to say how high ). Pt states that over the past 8 days he had felt weak. He denies nausea, vomiting, diarrhea He denies abdominal pain, chest pain PMHS: AF; AAA; CAD; carotid artery disease; HTN; hyperlipidemia; PAD; Lt renal artery NURSE EXTERN/stent 02/2018. Coronay stents: LAD 08/2016; RCA 2011; NURSE EXTERN left SFA 10/2016 (Dr. Meier). - History Source History Provided By: Medical Record - Alcohol/Substance Use Hx Alcohol Use: No - Smoking History Smoking history: Former smoker Have you smoked in the past 12 months: No If you are a former smoker, when did you quit?: 25 years ago Home Medications - Allergies Allergies/Adverse Reactions: Allergies Allergy/AdvReac Type Severity Reaction Status Date / Time No Known Allergies Allergy Verified 11/09/18 11:05 - Home Medications Home Medications: Ambulatory Orders Amlodipine Besylate 10 mg PO DAILY 04/16/18 Aspirin 81 mg PO DAILY 04/16/18 Clopidogrel Bisulfate [Clopidogrel] 75 mg PO DAILY 04/16/18 Donepezil HCl 5 mg PO DAILY 04/16/18 Isosorbide Mononitrate [Isosorbide Mononitrate ER] 60 mg PO DAILY 04/16/18 Tamsulosin HCl 0.4 mg PO DAILY 04/16/18 Gabapentin 600 mg PO TID PRN 04/19/18 Metoprolol Succinate [Toprol Xl] 25 mg PO DAILY 04/19/18 Ranitidine [Zantac -] 150 mg PO BID 04/19/18 Albuterol 0.083% Nebulizer Amy [Ventolin 0.083% Nebulizer Soln -] 1 amp IH Q4H PRN 11/09/18 Carbamazepine 200 mg PO TID 11/09/18 Pravastatin Sodium [Pravachol (Nf)] 80 mg PO HS 11/09/18 hydrALAZINE HCL [Apresoline -] 50 mg PO BID 11/09/18 Vital Signs: Vital Signs Temperature 98.1 F 11/10/18 05:44 Pulse Rate 71 11/10/18 05:44 Respiratory Rate 20 11/10/18 05:44 Blood Pressure 134/68 11/10/18 05:44 O2 Sat by Pulse Oximetry (%) 96 11/09/18 21:00 - Other Data Labs, Other Data: CBC, BMP 11/10/18 06:16 11/10/18 06:16 INR, PTT INR 1.22 (0.83-1.09) H 11/09/18 10:12 Troponin, BNP 11/09/18 11/09/18 11/10/18 09:34 20:20 06:16 Troponin I 0.20 H 0.59 H 1.92 H* Troponin, BNP 11/09/18 11/09/18 11/10/18 09:34 20:20 06:16 Troponin I 0.20 H 0.59 H 1.92 H* Problem List - Problems (1) Fever Assessment/Plan: Temperate to 103 F while in ER. F?u setpic workup; On antibiotcs; f/u c/s. Antipyretics. Code(s): R50.9 - FEVER, UNSPECIFIED Qualifiers: Fever type: unspecified Qualified Code(s): R50.9 - Fever, unspecified (2) UTI (urinary tract infection) Code(s): N39.0 - URINARY TRACT INFECTION, SITE NOT SPECIFIED Qualifiers: Urinary tract infection type: site unspecified Hematuria presence: without hematuria Qualified Code(s): N39.0 - Urinary tract infection, site not specified (3) HTN (hypertension) Code(s): I10 - ESSENTIAL (PRIMARY) HYPERTENSION (4) AAA (abdominal aortic aneurysm) Code(s): I71.4 - ABDOMINAL AORTIC ANEURYSM, WITHOUT RUPTURE (5) Elevated troponin Assessment/Plan: TNI 0.2 (no significant change from 03/2018; CK WNL).F?u serially. EKG: pending.; On ASA, Imdur, amlodipine, metoprolol. F/u lipids; statin. TSH. Extensive hx of cardiac and peripheral vascular disease. F?u EKG and TNI serially; monitor on telemetry. Aggressive lipid control; Treat sepsis. Code(s): R74.8 - ABNORMAL LEVELS OF OTHER SERUM ENZYMES (6) Anemia Code(s): D64.9 - ANEMIA, UNSPECIFIED (7) Vasculopathy Code(s): I99.9 - UNSPECIFIED DISORDER OF CIRCULATORY SYSTEM (8) Seizures Code(s): R56.9 - UNSPECIFIED CONVULSIONS (9) Aneurysm of infrarenal abdominal aorta Code(s): I71.4 - ABDOMINAL AORTIC ANEURYSM, WITHOUT RUPTURE
--- NOTE | 2018-11-10 10:46 | EKG ---
Test Reason : Blood Pressure : / mmHG Vent. Rate : 085 BPM Atrial Rate : 085 BPM P-R Int : 142 ms QRS Dur : 126 ms QT Int : 362 ms P-R-T Axes : 065 -52 045 degrees QTc Int : 430 ms NORMAL SINUS RHYTHM LEFT AXIS DEVIATION LEFT VENTRICULAR HYPERTROPHY WITH QRS WIDENING CANNOT RULE OUT ANTERIOR INFARCT (CITED ON OR BEFORE 19-APR-2018) ABNORMAL ECG WHEN COMPARED WITH ECG OF 09-NOV-2018 09:50, Confirmed by MAMI ARCE MD ([id number]) on 11/10/2018 10:46:03 AM Referred By: Yanely GARNER Confirmed By:MAMI ARCE MD
--- NOTE | 2018-11-10 11:16 | EKG ---
Test Reason : Blood Pressure : / mmHG Vent. Rate : 088 BPM Atrial Rate : 088 BPM P-R Int : 150 ms QRS Dur : 126 ms QT Int : 362 ms P-R-T Axes : 047 -46 062 degrees QTc Int : 438 ms NORMAL SINUS RHYTHM POSSIBLE LEFT ATRIAL ENLARGEMENT LEFT AXIS DEVIATION LEFT VENTRICULAR HYPERTROPHY WITH QRS WIDENING CANNOT RULE OUT SEPTAL INFARCT (CITED ON OR BEFORE 19-APR-2018) ABNORMAL ECG WHEN COMPARED WITH ECG OF 20-APR-2018 08:51, T WAVE AMPLITUDE HAS INCREASED IN INFERIOR LEADS Confirmed by CLAUDE BARBOSA, MAMI ([id number]) on 11/10/2018 11:16:19 AM Referred By: Confirmed By:MAMI ARCE MD
--- NOTE | 2018-11-10 11:33 | PN ---
Progress Note, Physician History of Present Illness: Mr Mercer is a 77 yo man who presents to the ER with a complaint of weakness The patient states that 8 days ago he noted a high fever (unable to say how high ). Pt states that over the past 8 days he had felt weak. He denies nausea, vomiting, diarrhea He denies abdominal pain, chest pain PMHS: AF; AAA; CAD; carotid artery disease; HTN; hyperlipidemia; PAD; Lt renal artery QUARRYMAN/stent 02/2018. Coronay stents: LAD 08/2016; RCA 2011; QUARRYMAN left SFA 10/2016 (Dr. Meier). - Current Medication List Current Medications: Active Medications Acetaminophen (Tylenol Oral Solution -) 650 mg PO Q4H PRN PRN Reason: FEVER Last Admin: 11/10/18 01:22 Dose: 650 mg Albuterol Sulfate (Ventolin 0.083% Nebulizer Soln -) 1 amp NEB Q4H PRN PRN Reason: SHORTNESS OF BREATH Amlodipine Besylate (Norvasc -) 10 mg PO DAILY [facility] Last Admin: 11/10/18 09:45 Dose: 10 mg Aspirin (Asa -) 81 mg PO DAILY [facility] Last Admin: 11/10/18 09:45 Dose: 81 mg Carbamazepine (Tegretol -) 200 mg PO TID [facility] Last Admin: 11/10/18 05:52 Dose: 200 mg Ceftriaxone Sodium 1 gm/ (Dextrose) 50 mls @ 100 mls/hr IVPB DAILY [facility] Sodium Chloride (Normal Saline -) 1,000 mls @ 100 mls/hr IV ASDIR [facility] Last Admin: 11/10/18 09:44 Dose: 100 mls/hr Isosorbide Mononitrate (Imdur -) 60 mg PO DAILY [facility] Last Admin: 11/10/18 09:45 Dose: 60 mg Metoprolol Succinate (Toprol Xl -) 25 mg PO DAILY [facility] Last Admin: 11/10/18 09:45 Dose: 25 mg Tamsulosin HCl (Flomax -) 0.4 mg PO DAILY [facility] Last Admin: 11/10/18 09:45 Dose: 0.4 mg - Objective Vital Signs: Vital Signs Temperature 98.2 F 11/10/18 10:00 Pulse Rate 78 11/10/18 10:00 Respiratory Rate 20 11/10/18 10:00 Blood Pressure 153/71 11/10/18 10:00 O2 Sat by Pulse Oximetry (%) 96 11/10/18 09:00 Eyes: Yes: WNL, Conjunctiva Clear, EOM Intact HENT: Yes: WNL, Atraumatic, Normocephalic Neck: Yes: WNL, Supple, Trachea Midline Cardiovascular: Yes: WNL, Regular Rate and Rhythm Respiratory: Yes: WNL, Regular, CTA Bilaterally Gastrointestinal: Yes: WNL, Normal Bowel Sounds Genitourinary: Yes: WNL Musculoskeletal: Yes: WNL Extremities: Yes: WNL Edema: No Integumentary: Yes: WNL Neurological: Yes: WNL, Alert, Oriented ...Motor Strength: WNL Psychiatric: Yes: WNL Labs: CBC, BMP 11/10/18 06:16 11/10/18 06:16 INR, PTT INR 1.22 (0.83-1.09) H 11/09/18 10:12 Assessment/Plan Problems (1) Fever Assessment/Plan: Temperate to 103 F while in ER. F?u setpic workup; On antibiotcs; f/u c/s. Antipyretics. Code(s): R50.9 - FEVER, UNSPECIFIED Qualifiers: Fever type: unspecified Qualified Code(s): R50.9 - Fever, unspecified (2) UTI (urinary tract infection) Code(s): N39.0 - URINARY TRACT INFECTION, SITE NOT SPECIFIED Qualifiers: Urinary tract infection type: site unspecified Hematuria presence: without hematuria Qualified Code(s): N39.0 - Urinary tract infection, site not specified (3) HTN (hypertension) Code(s): I10 - ESSENTIAL (PRIMARY) HYPERTENSION (4) AAA (abdominal aortic aneurysm) Code(s): I71.4 - ABDOMINAL AORTIC ANEURYSM, WITHOUT RUPTURE (5) Elevated troponin Assessment/Plan: TNI 0.2 (no significant change from 03/2018; CK WNL).F?u serially. EKG: pending.; On ASA, Imdur, amlodipine, metoprolol. F/u lipids; statin. TSH. Extensive hx of cardiac and peripheral vascular disease. F?u EKG and TNI serially; monitor on telemetry. Aggressive lipid control; Treat sepsis. Code(s): R74.8 - ABNORMAL LEVELS OF OTHER SERUM ENZYMES (6) Anemia Code(s): D64.9 - ANEMIA, UNSPECIFIED (7) Vasculopathy Code(s): I99.9 - UNSPECIFIED DISORDER OF CIRCULATORY SYSTEM (8) Seizures Code(s): R56.9 - UNSPECIFIED CONVULSIONS (9) Aneurysm of infrarenal abdominal aorta Code(s): I71.4 - ABDOMINAL AORTIC ANEURYSM, WITHOUT RUPTURE
[2018-11-10] MEDS ORDERED: CEFTRIAXONE 1 GM in DEXTROSE 5%-WATER - 50 ML IVPB SCH (15:00)
--- NOTE | 2018-11-10 15:08 | PN ---
Teaching Attending Note Name of Resident: Donna Novoa ATTENDING PHYSICIAN STATEMENT I saw and evaluated the patient. I reviewed the resident's note and discussed the case with the resident. I agree with the resident's findings and plan as documented. SUBJECTIVE: No complaints currently. Urinating in diaper currently. Previously able to ambulate to bathroom to urinate. Fever overnight. OBJECTIVE: T max 102.7, Hemodynamically Stable. Last Vital Signs Temp Pulse Resp BP Pulse Ox 98.2 F 78 20 153/71 96 11/10/18 10:00 11/10/18 10:00 11/10/18 10:11/10/18 10:00 11/10/18 09:00 Heart - S1, S2, RRR Lungs - decreased air entry at bases Abdomen - Soft, non-tender. Bowel Sounds normal. Neuro - AAO x 3. Tone/Power normal all 4 extremities Extremities - No edema, no calf tenderness. Laboratory Results - last 24 hr 11/09/18 11/09/18 11/09/18 12:21 14:00 20:20 WBC RBC Hgb Hct MCV MCH MCHC RDW Plt Count MPV Absolute Neuts (auto) Neutrophils % Lymphocytes % Monocytes % Eosinophils % Basophils % Nucleated RBC % Sodium Potassium Chloride Carbon Dioxide Anion Gap BUN Creatinine Est GFR (CKD-EPI)AfAm Est GFR (CKD-EPI)NonAf Random Glucose Lactic Acid Calcium Phosphorus Magnesium Total Bilirubin AST ALT Alkaline Phosphatase Creatine Kinase Creatine Kinase Index CK-MB (CK-2) Troponin I Total Protein Albumin Triglycerides Cholesterol Total LDL Cholesterol HDL Cholesterol TSH U Pathogenic Cast Auto Coarse granular cast Blood Type O POSITIVE O POSITIVE Antibody Screen Negative 11/09/18 11/09/18 11/10/18 20:20 21:25 06:16 WBC 12.8 H RBC 3.47 L Hgb 11.0 L Hct 33.1 L MCV 95.3 MCH 31.7 MCHC 33.3 RDW 13.7 Plt Count 178 MPV 9.8 Absolute Neuts (auto) 10.4 H Neutrophils % 81.5 Lymphocytes % 7.4 L Monocytes % 10.7 H Eosinophils % 0.2 D Basophils % 0.2 Nucleated RBC % 0 Sodium Potassium Chloride Carbon Dioxide Anion Gap BUN Creatinine Est GFR (CKD-EPI)AfAm Est GFR (CKD-EPI)NonAf Random Glucose Lactic Acid 0.7 Calcium Phosphorus Magnesium Total Bilirubin AST ALT Alkaline Phosphatase Creatine Kinase Creatine Kinase Index CK-MB (CK-2) Troponin I 0.59 H Total Protein Albumin Triglycerides Cholesterol Total LDL Cholesterol HDL Cholesterol TSH U Pathogenic Cast Auto Blood Type Antibody Screen 11/10/18 06:16 WBC RBC Hgb Hct MCV MCH MCHC RDW Plt Count MPV Absolute Neuts (auto) Neutrophils % Lymphocytes % Monocytes % Eosinophils % Basophils % Nucleated RBC % Sodium 141 Potassium 4.7 Chloride 111 H Carbon Dioxide 20 L Anion Gap 10 BUN 31.1 H Creatinine 1.7 H Est GFR (CKD-EPI)AfAm 44.41 Est GFR (CKD-EPI)NonAf 38.32 Random Glucose 127 H Lactic Acid Calcium 8.2 L Phosphorus 4.3 Magnesium 2.4 Total Bilirubin 0.5 AST 241 H ALT 267 H Alkaline Phosphatase 135 H Creatine Kinase 201 Creatine Kinase Index Piece Hand CK-MB (CK-2) Piece Hand Troponin I 1.92 H* Total Protein 7.2 Albumin 2.5 L Triglycerides Cancelled Cholesterol Cancelled Total LDL Cholesterol Cancelled HDL Cholesterol Cancelled TSH Cancelled U Pathogenic Cast Auto Blood Type Antibody Screen Current Medications Generic Name Dose Route Start Last Admin Trade Name Freq PRN Reason Stop Dose Admin Acetaminophen 650 mg 11/10/18 01:10 11/10/18 01:22 Tylenol Oral Solution - PO 650 mg Q4H PRN Administration FEVER Albuterol Sulfate 1 amp 11/09/18 16:23 Ventolin 0.083% Nebulizer Soln - NEB Q4H PRN SHORTNESS OF BREATH Amlodipine Besylate 10 mg 11/10/18 10:00 11/10/18 09:45 Norvasc - PO 10 mg DAILY [facility] Administration Aspirin 81 mg 11/10/18 10:00 11/10/18 09:45 Asa - PO 81 mg DAILY [facility] Administration Carbamazepine 200 mg 11/09/18 22:00 11/10/18 14:03 Tegretol - PO 200 mg TID [facility] Administration Ceftriaxone Sodium 1 gm/ 50 mls @ 100 mls/hr 11/10/18 15:00 11/10/18 14:02 Dextrose IVPB 100 mls/hr DAILY [facility] Administration Sodium Chloride 1,000 mls @ 100 mls/hr 11/09/18 17:33 11/10/18 09:44 Normal Saline - IV 100 mls/hr ASDIR [facility] Administration Isosorbide Mononitrate 60 mg 11/10/18 10:00 11/10/18 09:45 Imdur - PO 60 mg DAILY [facility] Administration Metoprolol Succinate 25 mg 11/10/18 10:00 11/10/18 09:45 Toprol Xl - PO 25 mg DAILY [facility] Administration Tamsulosin HCl 0.4 mg 11/10/18 10:00 11/10/18 09:45 Flomax - PO 0.4 mg DAILY [facility] Administration ASSESSMENT AND PLAN: 77 year old male with HTN, HLD, CAD s/p PCI x 7 stents, Hx of Bladder CA s/p Tx , PAD s/p L external iliac stent, s/p L renal artery stent, presents with urinary incontinence, hematuria, malodorous urine, weakness, lethargy, confusion , decreased appetite. 1. Acute Metabolic Encephalopathy secondary to UTI - resolved CT Head - moderate periventricular and subcortical chronic microvascular changes Back to baseline mental status. 2. Sepsis secondary to UTI/Hemorrhagic Cystitis with Bacteremia Fever, leukocytosis, tachycardia - resolving Urine Cx/Blood Cx positive for GNB CT A/P - mild ureteral dilation with possible periureteral soft tissue standing. Will switch to Zosyn pending final ID and sensitivity. Urology following. 3. CLOVIS on CKD 3 - likely due to dehydration/UTI Creatinine improving with IV hydration. 4. Elevated Troponin ? sec to demand ischemia No chest pain ECG - no acute changes Evaluated by Cardiology - Troponin rising, no intervention/treatment suggested. Hemodynamically stable. Will monitor serial troponin measurements and monitor on Tele. 5. Elevated Transaminases, etiology unclear Abdominal US - fatty liver, Hepatitis panel pending. Statin held. GI consulted. 5. 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 6. PAD/s/p L ext iliac a stent/L renal a stent - continue Aspirin, Plavix 7. Adrenal Gland thickening - Hyperplasia vs Subcutaneous Adenoma - incidental finding - for outpatient 3 month follow up imaging eval (CT/MRI) 8. HTN - Continue Norvasc, Toprol. Hydralazine held currently due to borderline BP. 9. HLD - Statin held due to elevated LFTs. 10. CAD s/p PCI/Stent - Continue Aspirin, Plavix, Imdur, Toprol. 11. Hx Bladder Ca - follows with urology Dr. Dwaine Kim 12. Unclear whether patient has seizure history - on Carbamazepine - will continue - need to clarify reason for carbamazepine. DVT PX - SCDs. Heparin held given reported hematuria
[2018-11-10] MEDS ORDERED: PIPERACILLIN/TAZOB 3.375 GM 3.375 GM in DEXTROSE 5%-WATER - 50 ML IVPB SCH (15:15)
--- NOTE | 2018-11-10 15:17 | ECHO ---
Name: CHARLES SALEEM Exam:Adult Echocardiogram Study Date: 11/10/2018 01:18 PM Age: 77 yrs Reason For Study: NON STEMI Height: 66 in Weight: 144 lb BSA: 1.7 m2 MMode/2D Measurements & Calculations IVSd: 0.95 cm Ao root diam: 3.4 cm LVIDd: 5.1 cm LA dimension: 3.2 cm LVIDs: 3.2 cm LVPWd: 0.91 cm EDV(Teich): 125.3 ml LVOT diam: 2.2 cm ESV(Teich): 42.4 ml Doppler Measurements & Calculations MV E max jenaro: 78.0 cm/sec Ao V2 max: 207.4 cm/sec MV A max jenaro: 73.5 cm/sec Ao max P.2 mmHg MV E/A: 1.1 Ao V2 mean: 143.0 cm/sec MV dec time: 0.16 sec Ao mean P.3 mmHg Ao V2 VTI: 43.8 cm ALESSANDRO(I,D): 1.5 cm2 ALESSANDRO(V,D): 1.8 cm2 LV V1 max P.6 mmHg MR max jenaro: 414.6 cm/sec LV V1 mean P.0 mmHg MR max P.8 mmHg LV V1 max: 95.2 cm/sec LV V1 mean: 64.9 cm/sec LV V1 VTI: 17.1 cm SV(LVOT): 66.0 ml TR max jenaro: 242.2 cm/sec TR max P.6 mmHg Med Peak E' Jenaro: 5.4 cm/sec Med E/e': 14.5 Lat Peak E' Jenaro: 7.4 cm/sec Lat E/e': 10.5 Procedure A two-dimensional transthoracic echocardiogram with color flow and Doppler was performed. Left Ventricle The left ventricle is grossly normal size. Left ventricular systolic function is normal. Left Ventric ular Filling pattern is normal for age. The left ventricular wall motion is normal. Right Ventricle The right ventricle is normal in size and function. Atria Normal left and right atrial size and function. Mitral Valve There is mild mitral valve thickening. There is no mitral valve stenosis. There is mild mitral regurg itation. Tricuspid Valve There is mild tricuspid valve thickening. There is no tricuspid stenosis. There is mild tricuspid regurgitation. Right ventricular systolic pressure is normal. Aortic Valve The aortic valve is trileaflet. There is mild to moderate aortic valve thickening. There is mild to m oderate aortic sclerosis.;. No hemodynamically significant valvular aortic stenosis. No aortic regurgitation is present. Great Vessels The aortic root is normal size. Pericardium/Pleura There is no pericardial effusion. Interpretation Summary The left ventricle is grossly normal size. Left ventricular systolic function is normal. The left ventricular wall motion is normal. There is mild to moderate aortic valve thickening. The aortic valve is trileaflet. There is mild to moderate aortic sclerosis.; There is mild tricuspid regurgitation. Right ventricular systolic pressure is normal. There is mild mitral regurgitation. Left Ventricular Filling pattern is normal for age. MD Hilario Liu 11/10/2018 03:16 PM
--- NOTE | 2018-11-10 15:40 | PN ---
Physical Exam: SUBJECTIVE: Patient seen and examined at bedside. No acute events overnight. Denies cp, sob, abd pain, dysuria. Still with hematuria. OBJECTIVE: Vital Signs Temperature 98.1 F 11/10/18 17:00 Pulse Rate 74 11/10/18 17:00 Respiratory Rate 20 11/10/18 17:00 Blood Pressure 137/69 11/10/18 17:00 O2 Sat by Pulse Oximetry (%) 96 11/10/18 09:00 GENERAL: AAOX 3 . in NAD . +R hand tremor HEENT: AT/NC. Dry mucus membranes. NECK: Normal range of motion, supple LUNGS: Breath sounds equal, clear to auscultation bilaterally. No wheezes, and no crackles. No accessory muscle use. HEART: Regular rate and rhythm, normal S1 and S2 without murmur, rub or gallop. ABDOMEN: Soft, nontender, not distended, normoactive bowel sounds MUSCULOSKELETAL: +decr ROM LE 2/2 weakness. no CVA tenderness. LOWER EXTREMITIES: 2+ pt pulses, warm, well-perfused. No calf tenderness. No peripheral edema. NEUROLOGICAL: Cranial nerves II-XII intact. CBCD WBC 12.8 K/mm3 (4.0-10.0) H 11/10/18 06:16 RBC 3.47 M/mm3 (4.00-5.60) L 11/10/18 06:16 Hgb 11.0 GM/dL (11.7-16.9) L 11/10/18 06:16 Hct 33.1 % (35.4-49) L 11/10/18 06:16 MCV 95.3 fl (80-96) 11/10/18 06:16 MCHC 33.3 g/dl (32.0-35.9) 11/10/18 06:16 RDW 13.7 % (11.9-15.9) 11/10/18 06:16 Plt Count 178 K/MM3 (134-434) 11/10/18 06:16 MPV 9.8 fl (7.5-11.1) 11/10/18 06:16 CMP Sodium 141 mmol/L (136-145) 11/10/18 06:16 Potassium 4.7 mmol/L (3.5-5.1) 11/10/18 06:16 Chloride 111 mmol/L (98-107) H 11/10/18 06:16 Carbon Dioxide 20 mmol/L (21-32) L 11/10/18 06:16 Anion Gap 10 MMOL/L (8-16) 11/10/18 06:16 BUN 31.1 mg/dL (7-18) H 11/10/18 06:16 Creatinine 1.7 mg/dL (0.55-1.3) H 11/10/18 06:16 Calcium 8.2 mg/dL (8.5-10.1) L 11/10/18 06:16 Total Bilirubin 0.5 mg/dL (0.2-1) 11/10/18 06:16 AST 241 U/L (15-37) H 11/10/18 06:16 ALT 267 U/L (13-61) H 11/10/18 06:16 Alkaline Phosphatase 135 U/L (45-117) H 11/10/18 06:16 Total Protein 7.2 g/dl (6.4-8.2) 11/10/18 06:16 Albumin 2.5 g/dl (3.4-5.0) L 11/10/18 06:16 Active Medications Acetaminophen (Tylenol Oral Solution -) 650 mg PO Q4H PRN PRN Reason: FEVER Last Admin: 11/10/18 01:22 Dose: 650 mg Albuterol Sulfate (Ventolin 0.083% Nebulizer Soln -) 1 amp NEB Q4H PRN PRN Reason: SHORTNESS OF BREATH Amlodipine Besylate (Norvasc -) 10 mg PO DAILY [facility] Last Admin: 11/10/18 09:45 Dose: 10 mg Aspirin (Asa -) 81 mg PO DAILY [facility] Last Admin: 11/10/18 09:45 Dose: 81 mg Carbamazepine (Tegretol -) 200 mg PO TID [facility] Last Admin: 11/10/18 14:03 Dose: 200 mg Sodium Chloride (Normal Saline -) 1,000 mls @ 100 mls/hr IV ASDIR [facility] Last Admin: 11/10/18 09:44 Dose: 100 mls/hr Piperacillin Sod/Tazobactam (Sod 3.375 gm/ Dextrose) 50 mls @ 100 mls/hr IVPB Q8H-IV [facility]; Protocol Piperacillin Sod/Tazobactam (Sod 3.375 gm/ Dextrose) 50 mls @ 100 mls/hr IVPB Q8H [facility] Stop: 11/11/18 07:44 Last Admin: 11/10/18 16:04 Dose: 100 mls/hr Isosorbide Mononitrate (Imdur -) 60 mg PO DAILY [facility] Last Admin: 11/10/18 09:45 Dose: 60 mg Metoprolol Succinate (Toprol Xl -) 25 mg PO DAILY [facility] Last Admin: 11/10/18 09:45 Dose: 25 mg Tamsulosin HCl (Flomax -) 0.4 mg PO DAILY [facility] Last Admin: 11/10/18 09:45 Dose: 0.4 mg IMAGING: * CXR: weak inspiration, large heart, prom central markings, +loop recorder, no infiltrate. degenerative changes * Head CT: no acute changes. chronic moderate periventricular and subcortical chronic microvasc changes. * chest CT w/o contrast: no intrathoracic path. mild cardiomegaly. atherosclerotic coronary a calcifications. minimal to mild fusiform aneurysmal dilation descending aorta 3.4cm diam. * CTAP w/o contrast: 1. mild L ureteral dilation at level of urinary bladder w possible subtle periureteral soft tissue stranding. possible recently passed calculus.consider cystoscopy. no hydro 2. mild GB overdistension without CT evidence of acute rc. can correlate with US 3. infrarenal aortic aneurysm with 3.8cm diam 4. b/l common iliac a aneurysms each 2.3cm diam 5. +L external iliac a stent 6. +L renal a stent 7. mild adrenal gland thickening: hyperplasia vs. subcm adenomas. biochem eval and [address]/mri to document stability. EKG: NSR rate 88bpm. LVH, no st elevation, t wave inversion in V1 compared to previous but not in contiguous leads ASSESSMENT/PLAN: 77M with hx HTN, HLD, CAD s/p PCI x 7 stents, loop recorder, PAD, bladder CA sp laser tx, L external iliac stent, L renal a stent, who presents to the ED c/o urinary incontinence over the past seven days. #Acute Metabolic Encephalopathy; likely 2/2 UTI -CT head neg for acute pathology -Now back to baseline. Stable. #Sepsis 2/2 UTI/Cystitis +Bacteremia -UCx +NLFGNB, BCx +GNB; await final results -Per ID, cont with Zosyn -IVf hydration -Per uro (Dr. Madrigal), follow up outpatient. -tylenol PRN for fever/pain #Elevated troponins; 0.59 > 1.92 > 1.64. Likely 2/2 sepsis -Asymptomatic. Pt with extensive known cardiac historyPer cardio eval, no emergent intervention needed. -trend trops, cont to monitor on tele -cont statin; aggressive lipid control #CLOVIS vs. CLOVIS on CKD -improved after IVf hydration -cont to trend BMP #Transaminitis -with hx heavy alcohol intake in past -f/u GI recs -MRCP ordered -f/u hepatitis panel, serology for liver disease, trend LFTs #HTN-controlled -c/w norvasc, toprol -hold hydralazine as pt was d/c on previously however not w patient at bedside. can reintroduce but careful as pt may be naive to med. BP currently controlled. #HLD -hold pravastatin as w elevated LFTs #CAD s/p PCI x 7 stents; Cont home meds: ASA 81, Imdur 60 QD. Hold Plavix in setting of hematuria. #bladder CA -s/p laser tx multiple yrs ago -cont f/u with Dr. Madrigal #?seizures -will need to verify with PCP use -c/w carbamezepine for now #mild adrenal gland thickening -hyperplasia vs. subcm adenomas -biochem eval and 3 month follow up with ct/mri #F/E/N -IV NS 100 cc/hr -continue to follow lytes -fat/sodium controlled diet #PPX SCD's in case of procedure no heparin bc hematuria #Code status as per , pt makes decisions on own. full code #Dispo admit to tele Visit type - Emergency Visit Emergency Visit: Yes ED Registration Date: 11/09/18 Care time: The patient presented to the Emergency Department on the above date and was hospitalized for further evaluation of their emergent condition. - New Patient This patient is new to me today: Yes Date on this admission: 11/10/18 - Critical Care Critical Care patient: No
[2018-11-10] MEDS ORDERED: PIPERACILLIN/TAZOBACTAM 3.375 GM VIAL IVPB ONE ×2 (16:00→20:34)
[2018-11-10] MEDS ORDERED: DEXTROSE 5%-WATER - 50 ML IVPB ONE ×2 (16:00→20:35)
[2018-11-10] MEDS: PIPERACILLIN/TAZOB 3.375 GM 3.375 GM in DEXTROSE 5%-WATER - 50 ML IVPB SCH (16:04)
--- NOTE | 2018-11-10 16:09 | CON.ID ---
Consult Referred by:: hospitalist Reason for Consultation:: fever - History of Present Illness Chief Complaint: fever History of Present Illness: 77 yo man admitted with fevers, hematuria, urinary incontinence- reports he has been sick for about a week-about a week no recollection for details of yesterdays arrival to the ED in ED he was noted to have fever and abnormal lfts ct scan of chest abd /pelvis and head done treated with rocephin and zosyn afebrile today denies abdominal pain nausea or vomiting no diarrhea no travel - History Source History Provided By: Patient, Medical Record Limitations to Obtaining History: No Limitations - Past Medical History Cardio/Vascular: Yes: CAD (7 stents), HTN Heme/Onc: Yes: 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) - Past Surgical History Additional Surgical History: left external iliac stent, left renal artery stent , loop recorder - Alcohol/Substance Use Hx Alcohol Use: No - Smoking History Smoking history: Former smoker Have you smoked in the past 12 months: No If you are a former smoker, when did you quit?: 25 years ago - Social History Usual Living Arrangement: With Spouse ADL: Independent Occupation: former [employer] History of Recent Travel: No Home Medications - Allergies Allergies/Adverse Reactions: Allergies Allergy/AdvReac Type Severity Reaction Status Date / Time No Known Allergies Allergy Verified 11/09/18 11:05 - Home Medications Home Medications: Ambulatory Orders Amlodipine Besylate 10 mg PO DAILY 04/16/18 Aspirin 81 mg PO DAILY 04/16/18 Clopidogrel Bisulfate [Clopidogrel] 75 mg PO DAILY 04/16/18 Donepezil HCl 5 mg PO DAILY 04/16/18 Isosorbide Mononitrate [Isosorbide Mononitrate ER] 60 mg PO DAILY 04/16/18 Tamsulosin HCl 0.4 mg PO DAILY 04/16/18 Gabapentin 600 mg PO TID PRN 04/19/18 Metoprolol Succinate [Toprol Xl] 25 mg PO DAILY 04/19/18 Ranitidine [Zantac -] 150 mg PO BID 04/19/18 Albuterol 0.083% Nebulizer Amy [Ventolin 0.083% Nebulizer Soln -] 1 amp IH Q4H PRN 11/09/18 Carbamazepine 200 mg PO TID 11/09/18 Pravastatin Sodium [Pravachol (Nf)] 80 mg PO HS 11/09/18 hydrALAZINE HCL [Apresoline -] 50 mg PO BID 11/09/18 Family Disease History - Family Disease History Family History: Denies Review of Systems - Review of Systems Constitutional: reports: No Symptoms Eyes: reports: No Symptoms HENT: reports: No Symptoms. denies: Difficult Swallowing Neck: reports: No Symptoms Cardiovascular: reports: No Symptoms. denies: Chest Pain Respiratory: denies: Cough Gastrointestinal: denies: Abdominal Pain, Diarrhea, Nausea, Rectal Bleeding, Vomiting Genitourinary: reports: Hematuria, Incontinence Musculoskeletal: reports: No Symptoms Integumentary: reports: No Symptoms Neurological: reports: No Symptoms Physical Exam Vital Signs: Vital Signs Temperature 98 F 11/10/18 14:00 Pulse Rate 78 11/10/18 14:00 Respiratory Rate 20 11/10/18 14:00 Blood Pressure 125/60 11/10/18 14:00 O2 Sat by Pulse Oximetry (%) 96 11/10/18 09:00 Constitutional: Yes: No Distress, Thin Eyes: Yes: Conjunctiva Clear HENT: Yes: Atraumatic, Normocephalic. No: Pharyngeal Erythema, Thrush Neck: Yes: Supple, Trachea Midline Cardiovascular: Yes: Regular Rate and Rhythm Respiratory: Yes: Regular, CTA Bilaterally Gastrointestinal: Yes: Normal Bowel Sounds, Soft. No: Tenderness, Epigastrium Renal/: No: Bladder Distention, CVA Tenderness - Left, CVA Tenderness - Right Musculoskeletal: Yes: WNL Extremities: Yes: WNL Edema: No Psychiatric: Yes: Alert, Oriented Labs: CBC, BMP 11/10/18 06:16 11/10/18 06:16 Microbiology 11/09/18 10:07 Blood - Peripheral Venous Blood Culture - Preliminary NO GROWTH OBTAINED AFTER 24 HOURS, INCUBATION TO CONTINUE FOR 4 DAYS. 11/09/18 14:00 Urine - Urine Clean Catch Urine Culture - Preliminary Non Lactose Fermenting Gnb 11/09/18 10:12 Blood - Peripheral Venous Blood Culture - Preliminary Pending Organism Laboratory Tests 11/09/18 14:00 Ur Leukocyte Esterase 2+ H Urine WBC (Auto) 62 Imaging - Results Chest X-ray: Report Reviewed, Image Reviewed Cat Scan: Report Reviewed (head ct no acute pathology, chest ct no acute pathology, abd/pelvis- mild gb overdistention, left ureteral dilatation) Problem List - Problems (1) Gram-negative bacteremia Code(s): R78.81 - BACTEREMIA (2) Fever Code(s): R50.9 - FEVER, UNSPECIFIED Qualifiers: Fever type: unspecified Qualified Code(s): R50.9 - Fever, unspecified (3) UTI (urinary tract infection) Code(s): N39.0 - URINARY TRACT INFECTION, SITE NOT SPECIFIED Qualifiers: Urinary tract infection type: site unspecified Hematuria presence: without hematuria Qualified Code(s): N39.0 - Urinary tract infection, site not specified (4) CLOVIS (acute kidney injury) Code(s): N17.9 - ACUTE KIDNEY FAILURE, UNSPECIFIED (5) Abnormal LFTs Code(s): R94.5 - ABNORMAL RESULTS OF LIVER FUNCTION STUDIES (6) Elevated troponin Code(s): R74.8 - ABNORMAL LEVELS OF OTHER SERUM ENZYMES Assessment/Plan agree with zosyn as ordered will f/u cultures most c/w urinary source of bacteremia cad with postivie troponins- f/u with cardiology
--- NOTE | 2018-11-10 17:42 | PN ---
Progress Note (short form) - Note Progress Note: GI consult dictated Problem List - Problems (1) Abnormal LFTs Code(s): R94.5 - ABNORMAL RESULTS OF LIVER FUNCTION STUDIES (2) Fever Code(s): R50.9 - FEVER, UNSPECIFIED Qualifiers: Fever type: unspecified Qualified Code(s): R50.9 - Fever, unspecified (3) Gram-negative bacteremia Code(s): R78.81 - BACTEREMIA
--- NOTE | 2018-11-10 19:07 | CONS ---
DATE OF CONSULTATION: DATE OF DICTATION: 11/10/2018 GASTROENTEROLOGY CONSULTATION HISTORY OF PRESENT ILLNESS: The patient is a 77-year-old male with past medical history of hypertension, hyperlipidemia, CAD, stents in the past loop recorder, bladder cancer status post laser treatment, left external iliac stent, and renal stent, who presents to the emergency room with complaints of urinary incontinence for approximately 1 week, also with malodorous urine as well as hematuria. Also complained of subjective fevers and chills and decreased p.o. intake at the time. He was admitted with the urinary tract infection, fever. During the course, he was noted to have abnormal liver tests. As per the patient, he denies any abdominal pain, nausea, vomiting, hematemesis, melena, hematochezia, previous history of liver disease. He quit drinking alcohol 8 to 10 years ago; at the time, he was drinking vodka. He denies any herbal supplements or new medications at home prior to this admission. PAST MEDICAL AND SURGICAL HISTORY: As listed in the HPI. ALLERGIES: No known drug allergies. SOCIAL HISTORY: Does not smoke. Quit alcohol 10 years ago. Denies drug abuse. Used to work as a [employer]. FAMILY HISTORY: No significant liver disease, GI or gynecological malignancy. REVIEW OF SYSTEMS: As per HPI. Of note, he has not had a recent endoscopic evaluation. HOME MEDICATIONS: Include Norvasc 10 mg p.o. daily, aspirin 81 mg p.o. daily, clopidogrel 75 mg p.o. daily, donepezil 5 mg p.o. daily, isosorbide mononitrate 60 mg p.o. daily, Flomax 0.4 mg p.o. daily, gabapentin 600 mg t.i.d., metoprolol 25 mg daily, ranitidine 150 mg p.o. b.i.d., nebulizers, carbamazepine, pravastatin, and hydralazine 50 mg p.o. b.i.d. PHYSICAL EXAMINATION: VITAL SIGNS: Temperature 98, blood pressure 125/60, pulse rate 78, respiratory rate 12, saturation 96% on room air. GENERAL: In no acute distress. HEENT: Anicteric sclerae. CARDIOVASCULAR: S1, S2, regular rate and rhythm. LUNGS: Bilaterally clear to auscultation. ABDOMEN: Soft, nontender. EXTREMITIES: No edema. LABORATORY: White blood cell count 12.8, hemoglobin and hematocrit 11/33, MCV 95, platelet count 178, INR 1.22. Sodium 141, potassium 4.7, BUN/creatinine 31/1.7, glucose 127, calcium 8.2. AST 241, ALT 267, alkaline phosphatase 135, bilirubin 0.5, creatinine kinase 201, troponin 1.92 peak now currently 1.6, BNP is not resulted. Urine: 2+ protein, 1+ bilirubin, and 2+ leukocyte esterase. Serology for viral hepatitis are pending at this time. Urine culture gram negative rods and blood cultures positive pending the organism. CT scan of the abdomen and pelvis revealed mild cardiomegaly, atherosclerotic coronary calcifications mild to minimum dilation of the descending aorta with 3.4 cm diameter. Abdomen and pelvis CT scan was done without contrast and revealed no pneumoperitoneum, mild gallbladder over distention without edema or pericholecystic edema. There are no gallstones visualized and no definitive biliary ductal dilatation. Mild left adrenal gland thickening is seen probably on the basis of hyperplasia versus subcentimeter adenomas. Treatment followup is suggested of this adrenal thickening. IMPRESSION: Transaminitis hepatocellular pattern, most suspicious for infection induced with a component of congestive hepatopathy. Medication induced chronic and inherited liver disease cannot be excluded at this time as well as obstructive process, although on the noncontrast imaging there does not appear to be biliary ductal dilatation. RECOMMENDATION: Follow up the viral hepatitis panel, trend liver tests while hospitalized. If liver tests worsen, recommend MRCP to further evaluate the biliary tree. Avoid hepatotoxic medications. Will order complete serology for chronic and inherited liver disease. Antibiotics and treatment of gram negative sepsis as per primary medical team and the infectious disease service. This patient will be followed by the GI service. DO SUSAN BARRY/[id number]
[2018-11-11] MEDS: PIPERACILLIN/TAZOB 3.375 GM 3.375 GM in DEXTROSE 5%-WATER - 50 ML IVPB SCH ×4 (00:26→23:34)
[2018-11-11] MEDS ORDERED: DEXTROSE 5%-WATER - 50 ML IVPB ONE ×3 (06:32→20:34)
[2018-11-11] MEDS ORDERED: PIPERACILLIN/TAZOBACTAM 3.375 GM VIAL IVPB ONE ×3 (06:32→20:34)
[2018-11-11] MEDS: carBAMazepine 200 MG TABLET PO SCH ×3 (06:34→21:37)
[2018-11-11 06:59] LABS: HEMATOCRIT 27.7 % (35.4-49); HEMOGLOBIN 9.3 GM/dL (11.7-16.9); MCH 31.3 pg (25.7-33.7); MCHC 33.5 g/dl (32.0-35.9); MEAN CELL VOLUME 93.3 fl (80-96); MEAN PLT VOLUME 9.5 fl (7.5-11.1); PLATELET COUNT 178 K/MM3 (134-434); RBC 2.96 M/mm3 (4.00-5.60); RDW 13.2 % (11.9-15.9); WHITE BLOOD COUNT 8.1 K/mm3 (4.0-10.0)
[2018-11-11 07:18] LABS: ALBUMIN 2.3 g/dl (3.4-5.0); BILIRUBIN,TOTAL 0.4 mg/dL (0.2-1); BLOOD UREA NITROGEN 21.6 mg/dL (7-18); CREATININE 1.3 mg/dL (0.55-1.3); N-TERMINAL BNP 887.9 pg/ml (5-450); POTASSIUM 3.9 mmol/L (3.5-5.1); TOT PROT 6.4 g/dl (6.4-8.2)
[2018-11-11] MEDS ORDERED: POLYETHYLENE GLYCOL 3350 119 GM BTL PO SCH (10:00)
[2018-11-11] MEDS ORDERED: DOCUSATE SODIUM 100 MG CAPSULE (FP) PO SCH (10:00)
--- NOTE | 2018-11-11 10:20 | PN ---
Physical Exam: SUBJECTIVE: Patient seen and examined at bedside. No acute events overnight. Pt feels well and has no complaints. Denies cp, sob, abd pain. Pt seen ambulating with no assistance using the bathroom. OBJECTIVE: Vital Signs Temperature 98.6 F 11/11/18 09:00 Pulse Rate 72 11/11/18 09:00 Respiratory Rate 20 11/11/18 09:00 Blood Pressure 144/72 11/11/18 09:00 O2 Sat by Pulse Oximetry (%) 98 11/11/18 09:00 GENERAL: AAOX 3 . in NAD . +R hand tremor HEENT: AT/NC. Dry mucus membranes. NECK: Normal range of motion, supple LUNGS: Breath sounds equal, clear to auscultation bilaterally. No wheezes, and no crackles. No accessory muscle use. HEART: Regular rate and rhythm, normal S1 and S2 without murmur, rub or gallop. ABDOMEN: Soft, nontender, not distended, normoactive bowel sounds MUSCULOSKELETAL: +decr ROM LE 2/2 weakness. no CVA tenderness. LOWER EXTREMITIES: 2+ pt pulses, warm, well-perfused. No calf tenderness. No peripheral edema. NEUROLOGICAL: Cranial nerves II-XII intact. Laboratory Results - last 24 hr 11/09/18 11/09/18 11/09/18 12:21 20:20 20:20 WBC RBC Hgb Hct MCV MCH MCHC RDW Plt Count MPV Sodium Potassium Chloride Carbon Dioxide Anion Gap BUN Creatinine Est GFR (CKD-EPI)AfAm Est GFR (CKD-EPI)NonAf Random Glucose Calcium Phosphorus Magnesium Total Bilirubin AST ALT Alkaline Phosphatase LD Total Creatine Kinase Creatine Kinase Index CK-MB (CK-2) Troponin I B-Natriuretic Peptide Total Protein Albumin Triglycerides Cholesterol Total LDL Cholesterol HDL Cholesterol TSH Hep Bs Antibody Non reactive Hepatitis Be Antigen Negative Blood Type O POSITIVE 11/10/18 11/10/18 11/11/18 06:16 16:20 05:55 WBC RBC Hgb Hct MCV MCH MCHC RDW Plt Count MPV Sodium 141 140 Potassium 4.7 3.9 Chloride 111 H 111 H Carbon Dioxide 20 L 22 Anion Gap 10 6 L BUN 31.1 H 21.6 H Creatinine 1.7 H 1.3 Est GFR (CKD-EPI)AfAm 44.41 61.43 Est GFR (CKD-EPI)NonAf 38.32 53.00 Random Glucose 127 H 110 H Calcium 8.2 L 8.0 L Phosphorus 4.3 Magnesium 2.4 Total Bilirubin 0.5 0.4 AST 241 H 111 H ALT 267 H 191 H Alkaline Phosphatase 135 H 109 LD Total 215 Creatine Kinase 201 172 Creatine Kinase Index Stapling Machine Operator 1.3 CK-MB (CK-2) Stapling Machine Operator 2.4 Troponin I 1.92 H* 1.64 H* B-Natriuretic Peptide 887.9 H Total Protein 7.2 6.4 Albumin 2.5 L 2.3 L Triglycerides Cancelled 142 Cholesterol Cancelled 121 Total LDL Cholesterol Cancelled 75 HDL Cholesterol Cancelled 19 L TSH Cancelled Hep Bs Antibody Hepatitis Be Antigen Blood Type 11/11/18 05:55 WBC 8.1 RBC 2.96 L Hgb 9.3 L Hct 27.7 L D MCV 93.3 MCH 31.3 MCHC 33.5 RDW 13.2 Plt Count 178 MPV 9.5 Sodium Potassium Chloride Carbon Dioxide Anion Gap BUN Creatinine Est GFR (CKD-EPI)AfAm Est GFR (CKD-EPI)NonAf Random Glucose Calcium Phosphorus Magnesium Total Bilirubin AST ALT Alkaline Phosphatase LD Total Creatine Kinase Creatine Kinase Index CK-MB (CK-2) Troponin I B-Natriuretic Peptide Total Protein Albumin Triglycerides Cholesterol Total LDL Cholesterol HDL Cholesterol TSH Hep Bs Antibody Hepatitis Be Antigen Blood Type Active Medications Acetaminophen (Tylenol Oral Solution -) 650 mg PO Q4H PRN PRN Reason: FEVER Last Admin: 11/10/18 01:22 Dose: 650 mg Albuterol Sulfate (Ventolin 0.083% Nebulizer Soln -) 1 amp NEB Q4H PRN PRN Reason: SHORTNESS OF BREATH Amlodipine Besylate (Norvasc -) 10 mg PO DAILY [facility] Last Admin: 11/10/18 09:45 Dose: 10 mg Aspirin (Asa -) 81 mg PO DAILY KATHRYN Last Admin: 11/10/18 09:45 Dose: 81 mg Carbamazepine (Tegretol -) 200 mg PO TID KATHRYN Last Admin: 11/11/18 06:34 Dose: 200 mg Sodium Chloride (Normal Saline -) 1,000 mls @ 100 mls/hr IV ASDIR KATHRYN Last Admin: 11/10/18 22:03 Dose: Not Given Piperacillin Sod/Tazobactam (Sod 3.375 gm/ Dextrose) 50 mls @ 100 mls/hr IVPB Q8H-IV KATHRYN; Protocol Isosorbide Mononitrate (Imdur -) 60 mg PO DAILY [facility] Last Admin: 11/10/18 09:45 Dose: 60 mg Metoprolol Succinate (Toprol Xl -) 25 mg PO DAILY [facility] Last Admin: 11/10/18 09:45 Dose: 25 mg Tamsulosin HCl (Flomax -) 0.4 mg PO DAILY [facility] Last Admin: 11/10/18 09:45 Dose: 0.4 mg IMAGING: * CXR: weak inspiration, large heart, prom central markings, +loop recorder, no infiltrate. degenerative changes * Head CT: no acute changes. chronic moderate periventricular and subcortical chronic microvasc changes. * Chest CT w/o contrast: no intrathoracic path. mild cardiomegaly. atherosclerotic coronary a calcifications. minimal to mild fusiform aneurysmal dilation descending aorta 3.4cm diam. * CTAP w/o contrast: 1. mild L ureteral dilation at level of urinary bladder w possible subtle periureteral soft tissue stranding. possible recently passed calculus.consider cystoscopy. no hydro 2. mild GB overdistension without CT evidence of acute rc. can correlate with US 3. infrarenal aortic aneurysm with 3.8cm diam 4. b/l common iliac a aneurysms each 2.3cm diam 5. +L external iliac a stent 6. +L renal a stent 7. mild adrenal gland thickening: hyperplasia vs. subcm adenomas. biochem eval and [address]/mri to document stability. * Abd U/S: Mild fatty infiltration of liver vs. hepatocellular dz. Suggestion of minimal periportal edema which is nonspecific. No gallstones identified. Small R mid renal simple cyst measuring 1.1 cm. Aneurysmal dilatation of mid- abd aorta measuring 3.5 cm in AP dimension unchanged since prior CT scan of a/p dated 11/09/18 where it measured 3.8 cm. EKG: NSR rate 88bpm. LVH, no st elevation, t wave inversion in V1 compared to previous but not in contiguous leads ASSESSMENT/PLAN: 77M with hx HTN, HLD, CAD s/p PCI x 7 stents, loop recorder, PAD, bladder CA sp laser tx, L external iliac stent, L renal a stent, who presents to the ED c/o urinary incontinence over the past seven days. #Acute Metabolic Encephalopathy; likely 2/2 UTI -CT head neg for acute pathology -Now back to baseline. Stable. #Sepsis 2/2 UTI/Cystitis +Bacteremia -UCx +NLFGNB, BCx +GNB; await final results. Bcx repeated today -Per ID, cont with Zosyn pending final c/s -IVf hydration -Per uro (Dr. Madrigal), follow up outpatient. -tylenol PRN for fever/pain #Elevated troponins; 0.59 > 1.92 > 1.64. Likely 2/2 sepsis/demand ischemia -Asymptomatic. Pt with extensive known cardiac history. Per cardio eval, no emergent intervention needed. -trend trops, cont to monitor on tele -cont statin; aggressive lipid control. Although LFTs improving, will hold on statin for now to avoid further worsening of transaminitis #CLOVIS vs. CLOVIS on CKD -improved after IVf hydration -cont to trend BMP #Transaminitis -Abd u/s noted above; remarkable for -f/u GI recs -MRCP ordered -f/u hepatitis panel, serology for liver disease, trend LFTs #HTN-controlled; Cont home meds: Norvasc 10, Toprol 25 -hold hydralazine due to borderline BP #HLD -hold pravastatin as w/ elevated LFTs #CAD s/p PCI x 7 stents; Cont home meds: ASA 81, Imdur 60 QD. Hold Plavix in setting of hematuria. #Bladder CA -s/p laser tx multiple yrs ago -cont f/u with Dr. Madrigal as outpatient #Trigeminal Neuralgia; Cont home meds: Carbamazepine 200 TID -Per PCP, pt has been taking Carbamazepine since 2012; also follows up with a neurologist #Mild adrenal gland thickening -hyperplasia vs. subcm adenomas -biochem eval and 3 month follow up with ct/mri #AAA; U/S showed improvement from 3.8 cm --> 3.5 cm. follow up outpatient for routine workup. #F/E/N -IV NS 100 cc/hr -continue to follow lytes -fat/sodium controlled diet #PPX SCD's in case of procedure no heparin bc hematuria #Code status as per , pt makes decisions on own. full code #Dispo -cont to monitor on tele Visit type - Emergency Visit Emergency Visit: Yes ED Registration Date: 11/09/18 Care time: The patient presented to the Emergency Department on the above date and was hospitalized for further evaluation of their emergent condition. - New Patient This patient is new to me today: No - Critical Care Critical Care patient: No
--- NOTE | 2018-11-11 10:45 | PN ---
Teaching Attending Note Name of Resident: Donna Novoa ATTENDING PHYSICIAN STATEMENT I saw and evaluated the patient. I reviewed the resident's note and discussed the case with the resident. I agree with the resident's findings and plan as documented. SUBJECTIVE: No complaints currently. No abdominal/flank pain. No further hematuria. OBJECTIVE: T max 99.9, Hemodynamically Stable. Last Vital Signs Temp Pulse Resp BP Pulse Ox 98.6 F 72 20 144/72 98 11/11/18 09:00 11/11/18 09:00 11/11/18 09:00 11/11/18 09:00 11/11/18 09:00 Heart - S1, S2, RRR Lungs - decreased air entry at bases Abdomen - Soft, non-tender. Bowel Sounds normal. Neuro - AAO x 3. Tone/Power normal all 4 extremities Extremities - No edema, no calf tenderness. Laboratory Results - last 24 hr 11/09/18 11/09/18 11/09/18 12:21 20:20 20:20 WBC RBC Hgb Hct MCV MCH MCHC RDW Plt Count MPV Sodium Potassium Chloride Carbon Dioxide Anion Gap BUN Creatinine Est GFR (CKD-EPI)AfAm Est GFR (CKD-EPI)NonAf Random Glucose Calcium Phosphorus Magnesium Total Bilirubin AST ALT Alkaline Phosphatase LD Total Creatine Kinase Creatine Kinase Index CK-MB (CK-2) Troponin I B-Natriuretic Peptide Total Protein Albumin Triglycerides Cholesterol Total LDL Cholesterol HDL Cholesterol TSH Hep Bs Antibody Non reactive Hepatitis Be Antigen Negative Blood Type O POSITIVE 11/10/18 11/10/18 11/11/18 06:16 16:20 05:55 WBC RBC Hgb Hct MCV MCH MCHC RDW Plt Count MPV Sodium 141 140 Potassium 4.7 3.9 Chloride 111 H 111 H Carbon Dioxide 20 L 22 Anion Gap 10 6 L BUN 31.1 H 21.6 H Creatinine 1.7 H 1.3 Est GFR (CKD-EPI)AfAm 44.41 61.43 Est GFR (CKD-EPI)NonAf 38.32 53.00 Random Glucose 127 H 110 H Calcium 8.2 L 8.0 L Phosphorus 4.3 Magnesium 2.4 Total Bilirubin 0.5 0.4 AST 241 H 111 H ALT 267 H 191 H Alkaline Phosphatase 135 H 109 LD Total 215 Creatine Kinase 201 172 Creatine Kinase Index Television Mechanic 1.3 CK-MB (CK-2) Television Mechanic 2.4 Troponin I 1.92 H* 1.64 H* B-Natriuretic Peptide 887.9 H Total Protein 7.2 6.4 Albumin 2.5 L 2.3 L Triglycerides Cancelled 142 Cholesterol Cancelled 121 Total LDL Cholesterol Cancelled 75 HDL Cholesterol Cancelled 19 L TSH Cancelled Hep Bs Antibody Hepatitis Be Antigen Blood Type 11/11/18 05:55 WBC 8.1 RBC 2.96 L Hgb 9.3 L Hct 27.7 L D MCV 93.3 MCH 31.3 MCHC 33.5 RDW 13.2 Plt Count 178 MPV 9.5 Sodium Potassium Chloride Carbon Dioxide Anion Gap BUN Creatinine Est GFR (CKD-EPI)AfAm Est GFR (CKD-EPI)NonAf Random Glucose Calcium Phosphorus Magnesium Total Bilirubin AST ALT Alkaline Phosphatase LD Total Creatine Kinase Creatine Kinase Index CK-MB (CK-2) Troponin I B-Natriuretic Peptide Total Protein Albumin Triglycerides Cholesterol Total LDL Cholesterol HDL Cholesterol TSH Hep Bs Antibody Hepatitis Be Antigen Blood Type Current Medications Generic Name Dose Route Start Last Admin Trade Name Freq PRN Reason Stop Dose Admin Acetaminophen 650 mg 11/10/18 01:10 11/10/18 01:22 Tylenol Oral Solution - PO 650 mg Q4H PRN Administration FEVER Albuterol Sulfate 1 amp 11/09/18 16:23 Ventolin 0.083% Nebulizer Soln - NEB Q4H PRN SHORTNESS OF BREATH Amlodipine Besylate 10 mg 11/10/18 10:00 11/10/18 09:45 Norvasc - PO 10 mg DAILY KATHRYN Administration Aspirin 81 mg 11/10/18 10:00 11/10/18 09:45 Asa - PO 81 mg DAILY KATHRYN Administration Carbamazepine 200 mg 11/09/18 22:00 11/11/18 06:34 Tegretol - PO 200 mg TID KATHRYN Administration Sodium Chloride 1,000 mls @ 100 mls/hr 11/09/18 17:33 11/10/18 22:03 Normal Saline - IV Not Given ASDIR KATHRYN Piperacillin Sod/Tazobactam 50 mls @ 100 mls/hr 11/10/18 15:15 Sod 3.375 gm/ Dextrose IVPB Q8H-IV KATHRYN Protocol Isosorbide Mononitrate 60 mg 11/10/18 10:00 11/10/18 09:45 Imdur - PO 60 mg DAILY [facility]ATHRYN Administration Metoprolol Succinate 25 mg 11/10/18 10:00 11/10/18 09:45 Toprol Xl - PO 25 mg DAILY KATHRYN Administration Tamsulosin HCl 0.4 mg 11/10/18 10:00 11/10/18 09:45 Flomax - PO 0.4 mg DAILY KATHRYN Administration ASSESSMENT AND PLAN: 77 year old male with HTN, HLD, CAD s/p PCI x 7 stents, Hx of Bladder CA s/p Tx , PAD s/p L external iliac stent, s/p L renal artery stent, presents with urinary incontinence, hematuria, malodorous urine, weakness, lethargy, confusion , decreased appetite. 1. Acute Metabolic Encephalopathy secondary to UTI - resolved CT Head - moderate periventricular and subcortical chronic microvascular changes Currently back to baseline mental status. 2. Sepsis secondary to UTI/Hemorrhagic Cystitis with Bacteremia Fever, leukocytosis, tachycardia - resolving Urine Cx/Blood Cx positive for GNB. Repeat Blood Cx sent. CT A/P - mild ureteral dilation with possible periureteral soft tissue standing. Continue Zosyn pending final ID and sensitivity. Urology following. 3. CLOVIS on CKD 3 - likely due to dehydration/UTI - resolved with IV hydration. 4. Elevated Troponin ? sec to demand ischemia No chest pain ECG - no acute changes Echo - normal Ef, no wall motion abnormalities. Evaluated by Cardiology - Troponin peaked at 1.92, no intervention/treatment suggested. Hemodynamically stable. Continue Telemonitoring. 5. Elevated Transaminases, etiology unclear - improving. Abdominal US - fatty liver, Hepatitis panel pending. Statin held. GI consulted - recommend MRCP. 5. 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 6. PAD/s/p L ext iliac a stent/L renal a stent - continue Aspirin, Plavix 7. Adrenal Gland thickening - Hyperplasia vs Subcutaneous Adenoma - incidental finding - for outpatient 3 month follow up imaging eval (CT/MRI) 8. HTN - Continue Norvasc, Toprol. Hydralazine held currently due to borderline BP. 9. HLD - Statin held due to elevated LFTs. 10. CAD s/p PCI/Stent - Continue Aspirin, Plavix, Imdur, Toprol. 11. Hx Bladder Ca - follows with urology Dr. Dwaine Kim 12. Unclear whether patient has seizure history - on Carbamazepine - will continue - still no clarification re: reason for carbamazepine. DVT PX - SCDs. Heparin held given reported hematuria
[2018-11-11] MEDS: ISOSORBIDE MONONITRATE 60 MG TAB.SR.24H (FP) PO SCH (11:39)
[2018-11-11] MEDS: TAMSULOSIN HCL 0.4 MG CAP PO SCH (11:39)
[2018-11-11] MEDS: amLODIPine BESYLATE 10 MG TABLET (FP) PO SCH (11:39)
[2018-11-11] MEDS: ASPIRIN 81 MG CHEWABLE TABLETS PO SCH (11:39)
[2018-11-11] MEDS: metoPROLOL SUCCINATE 25 MG TAB.SR.24H (FP) PO SCH (11:39)
--- NOTE | 2018-11-11 15:05 | PN ---
Progress Note (short form) - Note Progress Note: improved no complaints Vital Signs Period Temp Pulse Resp BP Sys/Martins Pulse Ox Last 24 Hr 98.1 F-99.9 F 68-74 20-20 137-149/68-73 98-98 cor-rrr lungs clear abd soft,nt ext no edema CBC, BMP 11/11/18 05:55 11/11/18 05:55 Microbiology 11/09/18 14:00 Urine - Urine Clean Catch Urine Culture - Preliminary Non Lactose Fermenting Gnb 11/09/18 10:07 Blood - Peripheral Venous Blood Culture - Preliminary NO GROWTH OBTAINED AFTER 48 HOURS, INCUBATION TO CONTINUE FOR 3 DAYS. 11/09/18 10:12 Blood - Peripheral Venous Blood Culture - Preliminary Lactose Fermenting Neg Bacilli a/p gram negative bacteremia abnl lfts- improved cad- troponins continue zosyn f/u cultures Problem List - Problems (1) Gram-negative bacteremia Code(s): R78.81 - BACTEREMIA (2) Fever Code(s): R50.9 - FEVER, UNSPECIFIED Qualifiers: Fever type: unspecified Qualified Code(s): R50.9 - Fever, unspecified (3) UTI (urinary tract infection) Code(s): N39.0 - URINARY TRACT INFECTION, SITE NOT SPECIFIED Qualifiers: Urinary tract infection type: site unspecified Hematuria presence: without hematuria Qualified Code(s): N39.0 - Urinary tract infection, site not specified (4) CLOVIS (acute kidney injury) Code(s): N17.9 - ACUTE KIDNEY FAILURE, UNSPECIFIED (5) Abnormal LFTs Code(s): R94.5 - ABNORMAL RESULTS OF LIVER FUNCTION STUDIES (6) Elevated troponin Code(s): R74.8 - ABNORMAL LEVELS OF OTHER SERUM ENZYMES
--- NOTE | 2018-11-11 18:04 | PN.GI ---
GI Progress Note - Objective Vital Signs: Vital Signs Temperature 98.4 F 11/11/18 14:00 Pulse Rate 67 11/11/18 14:00 Respiratory Rate 20 11/11/18 14:00 Blood Pressure 118/64 11/11/18 14:00 O2 Sat by Pulse Oximetry (%) 98 11/11/18 09:00 Constitutional: Calm Eyes: No: Sclera Icterus Cardiovascular: Yes: Regular Rate and Rhythm. No: Murmur Respiratory: Yes: CTA Bilaterally Gastrointestinal Inspection: No: Distention ...Auscultate: Yes: Normoactive Bowel Sounds ...Palpate: Yes: Soft. No: Hepatomegaly, Splenomegaly, Tenderness ...Rectal Exam: Yes: Other (No external lesions, no masses, light antunez stool in rectal vault, guaiac negative) Edema: No (No LE edema) Neurological: Yes: Alert Labs: CBC, BMP 11/11/18 05:55 11/11/18 05:55 INR, PTT INR 1.22 (0.83-1.09) H 11/09/18 10:12 Hepatic Panel Total Bilirubin 0.4 mg/dL (0.2-1) 11/11/18 05:55 AST 111 U/L (15-37) H 11/11/18 05:55 ALT 191 U/L (13-61) H 11/11/18 05:55 Alkaline Phosphatase 109 U/L (45-117) 11/11/18 05:55 Albumin 2.3 g/dl (3.4-5.0) L 11/11/18 05:55 Problem List - Problems (1) Abnormal LFTs Assessment/Plan: Asymptomatic. suspected to be reactive to systemic process. No obvious biliary tract pathology on recent US. Avoid hepatotoxic agents (I D/C'd tylenol today) Continue to monitor LFTs. If cholestatic LFT picture progresses then would consider MRCP Code(s): R94.5 - ABNORMAL RESULTS OF LIVER FUNCTION STUDIES
[2018-11-11] MEDS: SODIUM CHLORIDE 1,000 ML IV SCH (21:38)
[2018-11-11] MEDS ORDERED: SENNOSIDES 8.6MG TABLET (FP) PO SCH (22:00)
[2018-11-12] MEDS ORDERED: PIPERACILLIN/TAZOBACTAM 3.375 GM VIAL IVPB ONE (06:12)
[2018-11-12] MEDS ORDERED: DEXTROSE 5%-WATER - 100 ML IVPB ONE (06:12)
[2018-11-12] MEDS: carBAMazepine 200 MG TABLET PO SCH ×2 (06:58→14:35)
[2018-11-12] MEDS: PIPERACILLIN/TAZOB 3.375 GM 3.375 GM in DEXTROSE 5%-WATER - 50 ML IVPB SCH ×2 (06:58→14:35)
[2018-11-12 07:16] LABS: HEMATOCRIT 26.4 % (35.4-49); HEMOGLOBIN 8.8 GM/dL (11.7-16.9); MCHC 33.2 g/dl (32.0-35.9); MEAN CELL VOLUME 93.5 fl (80-96); MEAN PLT VOLUME 9.5 fl (7.5-11.1); PLATELET COUNT 178 K/MM3 (134-434); RBC 2.83 M/mm3 (4.00-5.60); RDW 13.4 % (11.9-15.9); WHITE BLOOD COUNT 6.9 K/mm3 (4.0-10.0)
[2018-11-12 07:38] LABS: ALBUMIN 2.2 g/dl (3.4-5.0); BILIRUBIN,TOTAL 0.4 mg/dL (0.2-1); BLOOD UREA NITROGEN 14.7 mg/dL (7-18); CALCIUM 7.9 mg/dL (8.5-10.1); CREATININE 1.1 mg/dL (0.55-1.3); POTASSIUM 3.9 mmol/L (3.5-5.1); TOT PROT 6.2 g/dl (6.4-8.2)
[2018-11-12] MEDS: TAMSULOSIN HCL 0.4 MG CAP PO SCH (09:23)
[2018-11-12] MEDS: ASPIRIN 81 MG CHEWABLE TABLETS PO SCH (09:23)
[2018-11-12] MEDS: ISOSORBIDE MONONITRATE 60 MG TAB.SR.24H (FP) PO SCH (09:23)
[2018-11-12] MEDS: amLODIPine BESYLATE 10 MG TABLET (FP) PO SCH (09:23)
[2018-11-12] MEDS: metoPROLOL SUCCINATE 25 MG TAB.SR.24H (FP) PO SCH (09:23)
--- NOTE | 2018-11-12 12:18 | PN ---
Progress Note, Physician History of Present Illness: Mr Mercer is a 77 yo man who presents to the ER with a complaint of weakness The patient states that 8 days ago he noted a high fever (unable to say how high ). Pt states that over the past 8 days he had felt weak. He denies nausea, vomiting, diarrhea He denies abdominal pain, chest pain PMHS: AF; AAA; CAD; carotid artery disease; HTN; hyperlipidemia; PAD; Lt renal artery [employer]/stent 02/2018. Coronay stents: LAD 08/2016; RCA 2011; [employer] left [facility] 10/2016 (Dr. Meier). - Current Medication List Current Medications: Active Medications Albuterol Sulfate (Ventolin 0.083% Nebulizer Soln -) 1 amp NEB Q4H PRN PRN Reason: SHORTNESS OF BREATH Amlodipine Besylate (Norvasc -) 10 mg PO DAILY [facility] Last Admin: 11/12/18 09:23 Dose: 10 mg Aspirin (Asa -) 81 mg PO DAILY [facility] Last Admin: 11/12/18 09:23 Dose: 81 mg Carbamazepine (Tegretol -) 200 mg PO TID [facility] Last Admin: 11/12/18 06:58 Dose: 200 mg Sodium Chloride (Normal Saline -) 1,000 mls @ 100 mls/hr IV ASDIR [facility] Last Admin: 11/11/18 21:38 Dose: Not Given Piperacillin Sod/Tazobactam (Sod 3.375 gm/ Dextrose) 50 mls @ 100 mls/hr IVPB Q8H [facility] Last Admin: 11/12/18 06:58 Dose: 100 mls/hr Isosorbide Mononitrate (Imdur -) 60 mg PO DAILY [facility] Last Admin: 11/12/18 09:23 Dose: 60 mg Metoprolol Succinate (Toprol Xl -) 25 mg PO DAILY [facility] Last Admin: 11/12/18 09:23 Dose: 25 mg Tamsulosin HCl (Flomax -) 0.4 mg PO DAILY [facility] Last Admin: 11/12/18 09:23 Dose: 0.4 mg - Objective Vital Signs: Vital Signs Temperature 98.7 F 11/12/18 05:00 Pulse Rate 63 11/12/18 05:00 Respiratory Rate 20 11/12/18 05:00 Blood Pressure 153/83 11/12/18 05:00 O2 Sat by Pulse Oximetry (%) 95 11/11/18 21:00 Eyes: Yes: WNL, Conjunctiva Clear, EOM Intact HENT: Yes: WNL, Atraumatic, Normocephalic Neck: Yes: WNL, Supple, Trachea Midline Cardiovascular: Yes: WNL, Regular Rate and Rhythm Respiratory: Yes: WNL, Regular, CTA Bilaterally Gastrointestinal: Yes: WNL, Normal Bowel Sounds Genitourinary: Yes: WNL Musculoskeletal: Yes: WNL Extremities: Yes: WNL Edema: No Integumentary: Yes: WNL Neurological: Yes: WNL, Alert, Oriented ...Motor Strength: WNL Psychiatric: Yes: WNL Labs: CBC, BMP 11/12/18 06:08 11/12/18 06:08 INR, PTT INR 1.22 (0.83-1.09) H 11/09/18 10:12 Assessment/Plan Problems (1) Fever Assessment/Plan: Temperate to 103 F while in ER. F?u setpic workup; On antibiotcs; f/u c/s. Antipyretics. Code(s): R50.9 - FEVER, UNSPECIFIED Qualifiers: Fever type: unspecified Qualified Code(s): R50.9 - Fever, unspecified (2) UTI (urinary tract infection) Code(s): N39.0 - URINARY TRACT INFECTION, SITE NOT SPECIFIED Qualifiers: Urinary tract infection type: site unspecified Hematuria presence: without hematuria Qualified Code(s): N39.0 - Urinary tract infection, site not specified (3) HTN (hypertension) Code(s): I10 - ESSENTIAL (PRIMARY) HYPERTENSION (4) AAA (abdominal aortic aneurysm) Code(s): I71.4 - ABDOMINAL AORTIC ANEURYSM, WITHOUT RUPTURE (5) Elevated troponin Assessment/Plan: TNI 0.2 (no significant change from 03/2018; CK WNL).F?u serially. EKG: pending.; On ASA, Imdur, amlodipine, metoprolol. F/u lipids; statin. TSH. Extensive hx of cardiac and peripheral vascular disease. F?u EKG and TNI serially; monitor on telemetry. Aggressive lipid control; Treat sepsis. Code(s): R74.8 - ABNORMAL LEVELS OF OTHER SERUM ENZYMES (6) Anemia Code(s): D64.9 - ANEMIA, UNSPECIFIED (7) Vasculopathy Code(s): I99.9 - UNSPECIFIED DISORDER OF CIRCULATORY SYSTEM (8) Seizures Code(s): R56.9 - UNSPECIFIED CONVULSIONS (9) Aneurysm of infrarenal abdominal aorta Code(s): I71.4 - ABDOMINAL AORTIC ANEURYSM, WITHOUT RUPTURE cardiac mulligan stable d/c telemetry
--- NOTE | 2018-11-12 12:56 | PN ---
Teaching Attending Note Name of Resident: Donna Novoa ATTENDING PHYSICIAN STATEMENT I saw and evaluated the patient. I reviewed the resident's note and discussed the case with the resident. I agree with the resident's findings and plan as documented. SUBJECTIVE: No complaints currently. No abdominal/flank pain. No further hematuria. No dysuria. No fever/chills. OBJECTIVE: Afebrile, Hemodynamically Stable. Last Vital Signs Temp Pulse Resp BP Pulse Ox 98.7 F 63 20 153/83 95 11/12/18 05:00 11/12/18 05:00 11/12/18 05:00 11/12/18 05:00 11/11/18 21:00 Heart - S1, S2, RRR Lungs - decreased air entry at bases Abdomen - Soft, non-tender. Bowel Sounds normal. Neuro - AAO x 3. Tone/Power normal all 4 extremities Extremities - No edema, no calf tenderness. Laboratory Results - last 24 hr 11/09/18 11/11/18 11/12/18 20:20 05:55 06:08 WBC 6.9 RBC 2.83 L Hgb 8.8 L Hct 26.4 L MCV 93.5 MCH 31.0 MCHC 33.2 RDW 13.4 Plt Count 178 MPV 9.5 Sodium Potassium Chloride Carbon Dioxide Anion Gap BUN Creatinine Est GFR (CKD-EPI)AfAm Est GFR (CKD-EPI)NonAf Random Glucose Calcium Iron 37 L Total Bilirubin AST ALT Alkaline Phosphatase Total Protein Albumin HCV Quantitation Hcv not detected HCV RNA log copies/mL TNP 11/12/18 06:08 WBC RBC Hgb Hct MCV MCH MCHC RDW Plt Count MPV Sodium 142 Potassium 3.9 Chloride 112 H Carbon Dioxide 23 Anion Gap 7 L BUN 14.7 Creatinine 1.1 Est GFR (CKD-EPI)AfAm 75.18 Est GFR (CKD-EPI)NonAf 64.86 Random Glucose 137 H Calcium 7.9 L Iron Total Bilirubin 0.4 AST 55 H ALT 137 H Alkaline Phosphatase 94 Total Protein 6.2 L Albumin 2.2 L HCV Quantitation HCV RNA log copies/mL Current Medications Generic Name Dose Route Start Last Admin Trade Name Freq PRN Reason Stop Dose Admin Albuterol Sulfate 1 amp 11/09/18 16:23 Ventolin 0.083% Nebulizer Soln - NEB Q4H PRN SHORTNESS OF BREATH Amlodipine Besylate 10 mg 11/10/18 10:00 11/12/18 09:23 Norvasc - PO 10 mg DAILY [facility] Administration Aspirin 81 mg 11/10/18 10:00 11/12/18 09:23 Asa - PO 81 mg DAILY [facility] Administration Carbamazepine 200 mg 11/09/18 22:00 11/12/18 06:58 Tegretol - PO 200 mg TID [facility] Administration Sodium Chloride 1,000 mls @ 100 mls/hr 11/09/18 17:33 11/11/18 21:38 Normal Saline - IV Not Given ASDIR [facility] Piperacillin Sod/Tazobactam 50 mls @ 100 mls/hr 11/11/18 15:30 11/12/18 06:58 Sod 3.375 gm/ Dextrose IVPB 100 mls/hr Q8H [facility] Administration Isosorbide Mononitrate 60 mg 11/10/18 10:00 11/12/18 09:23 Imdur - PO 60 mg DAILY [facility] Administration Metoprolol Succinate 25 mg 11/10/18 10:00 11/12/18 09:23 Toprol Xl - PO 25 mg DAILY [facility] Administration Tamsulosin HCl 0.4 mg 11/10/18 10:00 11/12/18 09:23 Flomax - PO 0.4 mg DAILY [facility] Administration ASSESSMENT AND PLAN: 77 year old male with HTN, HLD, CAD s/p PCI x 7 stents, Hx of Bladder CA s/p Tx , PAD s/p L external iliac stent, s/p L renal artery stent, presents with urinary incontinence, hematuria, malodorous urine, weakness, lethargy, confusion , decreased appetite. 1. Acute Metabolic Encephalopathy secondary to UTI - resolved CT Head - moderate periventricular and subcortical chronic microvascular changes Currently back to baseline mental status. 2. Sepsis secondary to UTI/Hemorrhagic Cystitis with Bacteremia Fever, leukocytosis, tachycardia - resolved Urine Cx/Blood Cx positive for Acinetobacter. Repeat Blood Cx negative CT A/P - mild ureteral dilation with possible periureteral soft tissue standing. On Zosyn - for ID recommendation regarding oral Abx choice and duration. Urology evaluated - no intervention required. Medically Stable for outpatient follow up. 3. CLOVIS on CKD 3 - likely due to dehydration/UTI - resolved with IV hydration. 4. Elevated Troponin ? sec to demand ischemia No chest pain ECG - no acute changes Echo - normal Ef, no wall motion abnormalities. Evaluated by Cardiology - Troponin peaked at 1.92, no intervention/treatment suggested. Hemodynamically stable. Cardiology follow up on DC 5. Elevated Transaminases, etiology unclear - improving. Abdominal US - fatty liver, Hepatitis panel pending. Statin held. GI consulted - recommend MRCP - request declined by Radiology. Repeat LFTs and Gastroenterology follow up next week. 5. 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 6. PAD/s/p L ext iliac a stent/L renal a stent - continue Aspirin, Plavix 7. Adrenal Gland thickening - Hyperplasia vs Subcutaneous Adenoma - incidental finding - for outpatient 3 month follow up imaging eval (CT/MRI) 8. HTN - Continue Norvasc, Toprol and resume Hydralazine on discharge. 9. HLD - Statin held due to elevated LFTs. For out-patient GI follow up with repeat LFTs - can resume Statin then. 10. CAD s/p PCI/Stent - Continue Aspirin, Plavix, Imdur, Toprol. 11. Hx Bladder Ca - follows with urology Dr. Dwaine Kim 12. Hx of Trigeminal Neuralgia - on Carbamazepine. Medically stable for discharge on Abx as per ID. Urology, Cardiology and GI out- patient follow up.
--- NOTE | 2018-11-12 14:06 | PN ---
Physical Exam: SUBJECTIVE: Patient seen and examined at bedside. Pt has no complaints overnight. Wants to go home. Wanda PO diet. Ambulating himself. OBJECTIVE: Vital Signs Temperature 98.7 F 11/12/18 05:00 Pulse Rate 63 11/12/18 05:00 Respiratory Rate 20 11/12/18 05:00 Blood Pressure 153/83 11/12/18 05:00 O2 Sat by Pulse Oximetry (%) 95 11/11/18 21:00 GENERAL: AAOX 3 . in NAD . +R hand tremor HEENT: AT/NC. Dry mucus membranes. NECK: Normal range of motion, supple LUNGS: Breath sounds equal, clear to auscultation bilaterally. No wheezes, and no crackles. No accessory muscle use. HEART: Regular rate and rhythm, normal S1 and S2 without murmur, rub or gallop. ABDOMEN: Soft, nontender, not distended, normoactive bowel sounds MUSCULOSKELETAL: +decr ROM LE 2/2 weakness. no CVA tenderness. LOWER EXTREMITIES: 2+ pt pulses, warm, well-perfused. No calf tenderness. No peripheral edema. NEUROLOGICAL: Cranial nerves II-XII intact. CBCD WBC 6.9 K/mm3 (4.0-10.0) 11/12/18 06:08 RBC 2.83 M/mm3 (4.00-5.60) L 11/12/18 06:08 Hgb 8.8 GM/dL (11.7-16.9) L 11/12/18 06:08 Hct 26.4 % (35.4-49) L 11/12/18 06:08 MCV 93.5 fl (80-96) 11/12/18 06:08 MCHC 33.2 g/dl (32.0-35.9) 11/12/18 06:08 RDW 13.4 % (11.9-15.9) 11/12/18 06:08 Plt Count 178 K/MM3 (134-434) 11/12/18 06:08 MPV 9.5 fl (7.5-11.1) 11/12/18 06:08 CMP Sodium 142 mmol/L (136-145) 11/12/18 06:08 Potassium 3.9 mmol/L (3.5-5.1) 11/12/18 06:08 Chloride 112 mmol/L (98-107) H 11/12/18 06:08 Carbon Dioxide 23 mmol/L (21-32) 11/12/18 06:08 Anion Gap 7 MMOL/L (8-16) L 11/12/18 06:08 BUN 14.7 mg/dL (7-18) 11/12/18 06:08 Creatinine 1.1 mg/dL (0.55-1.3) 11/12/18 06:08 Calcium 7.9 mg/dL (8.5-10.1) L 11/12/18 06:08 Total Bilirubin 0.4 mg/dL (0.2-1) 11/12/18 06:08 AST 55 U/L (15-37) H 11/12/18 06:08 ALT 137 U/L (13-61) H 11/12/18 06:08 Alkaline Phosphatase 94 U/L (45-117) 11/12/18 06:08 Total Protein 6.2 g/dl (6.4-8.2) L 11/12/18 06:08 Albumin 2.2 g/dl (3.4-5.0) L 11/12/18 06:08 ASSESSMENT/PLAN: Active Medications Albuterol Sulfate (Ventolin 0.083% Nebulizer Soln -) 1 amp NEB Q4H PRN PRN Reason: SHORTNESS OF BREATH Amlodipine Besylate (Norvasc -) 10 mg PO DAILY [facility] Last Admin: 11/12/18 09:23 Dose: 10 mg Aspirin (Asa -) 81 mg PO DAILY [facility] Last Admin: 11/12/18 09:23 Dose: 81 mg Carbamazepine (Tegretol -) 200 mg PO TID [facility] Last Admin: 11/12/18 06:58 Dose: 200 mg Sodium Chloride (Normal Saline -) 1,000 mls @ 100 mls/hr IV ASDIR [facility] Last Admin: 11/11/18 21:38 Dose: Not Given Piperacillin Sod/Tazobactam (Sod 3.375 gm/ Dextrose) 50 mls @ 100 mls/hr IVPB Q8H [facility] Last Admin: 11/12/18 06:58 Dose: 100 mls/hr Isosorbide Mononitrate (Imdur -) 60 mg PO DAILY [facility] Last Admin: 11/12/18 09:23 Dose: 60 mg Metoprolol Succinate (Toprol Xl -) 25 mg PO DAILY [facility] Last Admin: 11/12/18 09:23 Dose: 25 mg Tamsulosin HCl (Flomax -) 0.4 mg PO DAILY [facility] Last Admin: 11/12/18 09:23 Dose: 0.4 mg IMAGING: * CXR: weak inspiration, large heart, prom central markings, +loop recorder, no infiltrate. degenerative changes * Head CT: no acute changes. chronic moderate periventricular and subcortical chronic microvasc changes. * chest CT w/o contrast: no intrathoracic path. mild cardiomegaly. atherosclerotic coronary a calcifications. minimal to mild fusiform aneurysmal dilation descending aorta 3.4cm diam. * CTAP w/o contrast: 1. mild L ureteral dilation at level of urinary bladder w possible subtle periureteral soft tissue stranding. possible recently passed calculus.consider cystoscopy. no hydronephrosis. 2. mild GB overdistension without CT evidence of acute rc. can correlate with US 3. infrarenal aortic aneurysm with 3.8cm diam 4. b/l common iliac a aneurysms each 2.3cm diam 5. +L external iliac a stent 6. +L renal a stent 7. mild adrenal gland thickening: hyperplasia vs. subcm adenomas. biochem eval and [address]/mri to document stability. EKG: NSR rate 88bpm. LVH, no st elevation, t wave inversion in V1 compared to previous but not in contiguous leads ASSESSMENT/PLAN: 77M with hx HTN, HLD, CAD s/p PCI x 7 stents, loop recorder, PAD, bladder CA sp laser tx, L external iliac stent, L renal a stent, who presents to the ED c/o urinary incontinence over the past seven days. #Acute Metabolic Encephalopathy; likely 2/2 UTI -CT head neg for acute pathology -Now back to baseline. Stable. #Sepsis 2/2 UTI/Cystitis +Bacteremia -UCx and BCx +Acinetobacter baumannii; f/u ID recs. Repeat Bcx neg x24h -IVf hydration -Per uro (Dr. Madrigal), follow up outpatient. -tylenol PRN for fever/pain #Elevated troponins; 0.59 > 1.92 > 1.64. Likely 2/2 sepsis/demand ischemia -Asymptomatic. Pt with extensive known cardiac history. Per cardio, stable from cardiac standpoint; can d/c from tele. -cont statin; aggressive lipid control #CLOVIS vs. CLOVIS on CKD -improved after IVf hydration -cont to trend BMP #Transaminitis; resolving. -with hx heavy alcohol intake in past -MRCP recommended by GI, however IR deferred at this time as it can be as an outpatient follow up. Informed pt, to follow with GI and to have MRCP done. -f/u hepatitis panel, serology for liver disease, trend LFTs #HTN-controlled; Cont Norvasc and Toprol. Hold hydralazine as pt was d/c on previously however not w patient at bedside. #HLD; hold pravastatin as w elevated LFTs #CAD s/p PCI x 7 stents; Cont home meds: ASA 81, Imdur 60 QD. Hold Plavix in setting of hematuria. #Bladder CA; s/p laser tx multiple yrs ago. Advised to f/u with Dr. Madrigal #Trigeminal Neuralgia; Cont home med: Carbamezepine #Mild adrenal gland thickening -hyperplasia vs. subcm adenomas -biochem eval and 3 month follow up with ct/mri #F/E/N -IV NS 100 cc/hr -continue to follow lytes -fat/sodium controlled diet #PPX SCD's in case of procedure no heparin bc hematuria #Dispo -can d/c tele per cardio -full code Visit type - Emergency Visit Emergency Visit: Yes ED Registration Date: 11/09/18 Care time: The patient presented to the Emergency Department on the above date and was hospitalized for further evaluation of their emergent condition. - New Patient This patient is new to me today: No - Critical Care Critical Care patient: No
[2018-11-12] MEDS ORDERED: ERTAPENEM SODIUM 1 GM in SODIUM CHLORIDE 50 ML IVPB SCH (15:15)
[2018-11-12 16:39] VITALS: BP 148/77; PULSE 64; TEMP 98.2
--- NOTE | 2018-11-12 19:07 | PN ---
Progress Note, Physician - Objective Vital Signs: Vital Signs Temperature 98.2 F 11/12/18 09:00 Pulse Rate 64 11/12/18 09:00 Respiratory Rate 20 11/12/18 09:00 Blood Pressure 148/77 11/12/18 09:00 O2 Sat by Pulse Oximetry (%) 95 11/12/18 09:00 Labs: CBC, BMP 11/12/18 06:08 11/12/18 06:08 INR, PTT INR 1.22 (0.83-1.09) H 11/09/18 10:12
[2018-11-12 22:09] LABS: HEP B CORE AB, TOT Negative (Negative)
--- NOTE | 2018-11-14 21:54 | DS ---
Physical Exam: SUBJECTIVE: Patient seen and examined at bedside. No acute events overnight. OBJECTIVE: PHYSICAL EXAM GENERAL: AAOX 3 . in NAD . +R hand tremor HEENT: AT/NC. Dry mucus membranes. NECK: Normal range of motion, supple LUNGS: Breath sounds equal, clear to auscultation bilaterally. No wheezes, and no crackles. No accessory muscle use. HEART: Regular rate and rhythm, normal S1 and S2 without murmur, rub or gallop. ABDOMEN: Soft, nontender, not distended, normoactive bowel sounds MUSCULOSKELETAL: +decr ROM LE 2/2 weakness. no CVA tenderness. LOWER EXTREMITIES: 2+ pt pulses, warm, well-perfused. No calf tenderness. No peripheral edema. NEUROLOGICAL: Cranial nerves II-XII intact. LABS HOSPITAL COURSE: Date of Admission:11/09/18 IMAGING: * CXR: weak inspiration, large heart, prom central markings, +loop recorder, no infiltrate. degenerative changes * Head CT: no acute changes. chronic moderate periventricular and subcortical chronic microvasc changes. * Chest CT w/o contrast: no intrathoracic path. mild cardiomegaly. atherosclerotic coronary a calcifications. minimal to mild fusiform aneurysmal dilation descending aorta 3.4cm diam. * CTAP w/o contrast: 1. mild L ureteral dilation at level of urinary bladder w possible subtle periureteral \] soft tissue stranding. possible recently passed calculus.consider cystoscopy. no hydro 2. mild GB overdistension without CT evidence of acute rc. can correlate with US 3. infrarenal aortic aneurysm with 3.8cm diam 4. b/l common iliac a aneurysms each 2.3cm diam 5. +L external iliac a stent 6. +L renal a stent 7. mild adrenal gland thickening: hyperplasia vs. subcm adenomas. biochem eval and [address]/mri to document stability. * Abd U/S: Mild fatty infiltration of liver vs. hepatocellular dz. Suggestion of minimal periportal edema which is nonspecific. No gallstones identified. Small R mid renal simple cyst measuring 1.1 cm. Aneurysmal dilatation of mid- abd aorta measuring 3.5 cm in AP dimension unchanged since prior CT scan of a/p dated 11/09/18 where it measured 3.8 cm. * EKG: NSR rate 88bpm. LVH, no st elevation, t wave inversion in V1 compared to previous but not in contiguous leads 77 year old male with HTN, HLD, CAD s/p PCI x 7 stents, Hx of Bladder CA s/p Tx , PAD s/p L external iliac stent, s/p L renal artery stent, presents with urinary incontinence, hematuria, malodorous urine, weakness, lethargy, confusion , decreased appetite. Pt was given IV Zosyn for empiric treatment of UTI. Blood cultures were positive for Acinetobacter baumanii/haemol. He was evaluated by uro with no need for emergent procedure and recommendation for outpatient follow up. Additionally, lab work showed elevated trops after which he was evaluated by cardio. Upon cardiac eval, there was no need for emergent intervention. Trops eventually trended down and throughout entire hospital duration, pt remained asymptomatic of chest complaints. His hospital stay was complicated by abnormal LFTs and as a result, GI was consulted. Upon GI eval, pt was recommended to have an MRCP done for further evaluation, however imaging studies were deferred by IR to be done as an outpatient. Date of Discharge: 11/14/18 Discharge Summary Reason For Visit: ACUTE KIDNEY INJURY/DEHYDRATION Condition: Improved - Instructions Diet, Activity, Other Instructions: You were seen in the hospital for complaints of hematuria (blood in the urine). You were evaluated by the urologist who did not recommend emergent intervention at this time. Your urine and blood cultures were positive for bacteria. As a result, you were given IV antibiotics and evaluated by the infectious disease doctor. Throughout your hospital stay, your symptoms improved. You are being discharged home. You will need IV antibiotics (Ertapenem) for 10 more days which will be administered at home through your IV. MEDICATIONS You may continue taking the rest of your home meds as directed. FOLLOW UP Please follow up with your primary care provider, TARA Tucker within 1 week. You will need follow up regarding the CT findings of adrenal gland thickening and a repeat CT/MRI in 3 months as well as lab work. Please follow up with your GI doctor, Dr. Mars, within 1 week. You will need to have repeat blood work to check your liver enzymes. Additionally, you will need to have an MRI of your abdomen as an outpatient. Please follow up with your credit control assistant, Dr. Elaine, as an outpatient. Please follow up with your urologist, Dr. Madrigal within a week for further evaluation. Please follow up with Infectious Disease (Dr. Srivastava) for management of the antibiotics. Referrals: TARA Tucker [Other] Bernardo Mars MD [Staff Physician] - Mikhail Madrigal MD [Staff Physician] - Gasper Elaine MD [Staff Physician] - Disposition: HOME - Home Medications Comprehensive Discharge Medication List: Ambulatory Orders Amlodipine Besylate 10 mg PO DAILY 04/16/18 Aspirin 81 mg PO DAILY 04/16/18 Clopidogrel Bisulfate [Clopidogrel] 75 mg PO DAILY 04/16/18 Donepezil HCl 5 mg PO DAILY 04/16/18 Isosorbide Mononitrate [Isosorbide Mononitrate ER] 60 mg PO DAILY 04/16/18 Tamsulosin HCl 0.4 mg PO DAILY 04/16/18 Gabapentin 600 mg PO TID PRN 04/19/18 Metoprolol Succinate [Toprol Xl] 25 mg PO DAILY 04/19/18 Ranitidine [Zantac -] 150 mg PO BID 04/19/18 Albuterol 0.083% Nebulizer Amy [Ventolin 0.083% Nebulizer Soln -] 1 amp IH Q4H PRN 11/09/18 Carbamazepine 200 mg PO TID 11/09/18 Pravastatin Sodium [Pravachol (Nf)] 80 mg PO HS 11/09/18 hydrALAZINE HCL [Apresoline -] 50 mg PO BID 11/09/18 Ertapenem Sodium [Ertapenem] 1 gm IJ DAILY #10 vial 11/12/18
== END 2018-11-12 18:47 | disposition home or self-care (01) | DRG 871 ==
LOC: JER 09:02 → JERBED 13:19 → J6S 17:15 → J4W 18:54
PROC: 02HV33Z Insertion of Infusion Device into Superior Vena Cava, Percutaneous Approach (ICD-10-PCS; principal; 2018-11-12)
DX: A41.50 Gram-negative sepsis, unspecified (principal); G93.41 Metabolic encephalopathy; N17.9 Acute kidney failure, unspecified; N39.0 Urinary tract infection, site not specified; I25.10 Atherosclerotic heart disease of native coronary artery without angina pectoris; R94.5 Abnormal results of liver function studies; E86.0 Dehydration; E78.5 Hyperlipidemia, unspecified; Z98.61 Coronary angioplasty status; R74.0 Nonspecific elevation of levels of transaminase and lactic acid dehydrogenase [LDH]; G50.0 Trigeminal neuralgia; N18.3 Chronic kidney disease, stage 3 (moderate); I12.9 Hypertensive chronic kidney disease with stage 1 through stage 4 chronic kidney disease, or unspecified chronic kidney disease
CPT/HCPCS: 36415; 36569; 70450-TC; 71045-TC-FY; 71250-TC; 74176-TC; 76705-TC; 80053; 80061; 81003; 82550; 82553; 82803; 83516; 83540; 83605; 83615; 83721; 83735; 83880; 84100; 84484; 85025; 85027; 85610; 85730; 86038; 86704; 86706; 86850; 86900; 86901; 87040; 87086; 87186; 87350; 87522; 93005; 93010; 93306-TC; 97116-GP; 97161-GP; 99285-25; C1751; J0131; J7030

== ENCOUNTER 2023-09-10 14:12 | Inpatient (IN) | payer OTHER ==
[2023-09-10 15:24] LABS: BASO % 0.6 % (0-2.0); EOS % 5.7 % (0-4.5); HEMATOCRIT 43.8 % (35.4-49); HEMOGLOBIN 14.1 GM/dL (11.7-16.9); LYMPH % 17.6 % (8-40); MCH 31.4 pg (25.7-33.7); MCHC 32.3 g/dl (32.0-35.9); MEAN CELL VOLUME 97.4 fl (80-96); MEAN PLT VOLUME 8.3 fl (7.5-11.1); MONO % 12.9 % (3.8-10.2); NEUT % 63.2 % (42.8-82.8); PLATELET COUNT 145 10^3/uL (134-434); RBC 4.49 M/mm3 (4.00-5.60); RDW 14.1 % (11.9-15.9); WHITE BLOOD COUNT 5.9 K/mm3 (4.0-10.0)
[2023-09-10 15:30] LABS: INR 1.07 (0.83-1.09); PROTHROMBIN TIME (PATIENT) 12.4 SEC (9.7-13.0)
[2023-09-10] MEDS: SODIUM CHLORIDE 1,000 ML IV STA (15:37)
[2023-09-10 15:52] LABS: POTASSIUM 4.7 mmol/L (3.5-5.1)
[2023-09-10 15:54] LABS: CALCIUM 9.4 mg/dL (8.5-10.1)
[2023-09-10 15:55] LABS: ALBUMIN 3.8 g/dl (3.4-5.0); MAGNESIUM 2.7 mg/dL (1.8-2.4)
[2023-09-10 15:58] LABS: CREATININE 1.6 mg/dL (0.55-1.3)
[2023-09-10 15:59] LABS: BILIRUBIN,TOTAL 0.4 mg/dL (0.2-1)
[2023-09-10 16:00] LABS: TOT PROT 8.3 g/dl (6.4-8.2)
[2023-09-10 16:03] LABS: N-TERMINAL BNP 1668.8 pg/ml (5-450)
[2023-09-10] MEDS ORDERED: ASPIRIN 325 MG TABLET ONE (16:25)
[2023-09-10] MEDS ORDERED: APIXABAN 2.5 MG TABLET ONE (16:25)
[2023-09-10] MEDS ORDERED: ATORVASTATIN CA 80 MG TABLET (FP) ONE (16:25)
[2023-09-10] MEDS: ASPIRIN 81 MG CHEWABLE TABLETS PO ONE (16:40)
[2023-09-10] MEDS: APIXABAN 2.5 MG TABLET PO ONE (16:40)
[2023-09-10] MEDS: ATORVASTATIN CA 80 MG TABLET (FP) PO ONE (16:40)
[2023-09-10 17:45] LABS: EPI CELLS 5 /uL (0-25.1); HYALINE CASTS 0 /uL (0-3.1); PH,URINE 7.5 (5.0-8.0); URINE APPEARANCE CLEAR; URINE BACTERIA 5 /uL (0-1359); URINE BILIRUBIN NEGATIVE (NEGATIVE); URINE COLOR YELLOW; URINE GLUCOSE (UA) NEGATIVE (NEGATIVE); URINE KETONE NEGATIVE (NEGATIVE); URINE LEUK ESTERASE NEGATIVE (NEGATIVE); URINE NITRITE NEGATIVE (NEGATIVE); URINE PROTEIN 1+ (NEGATIVE); URINE RBC 64 /uL (0-23.9); URINE UROBILINOGEN 0.2 mg/dL (0.2-1.0); URINE WBC 6 /uL (0-25.8)
[2023-09-10 20:47] VITALS: BMI 23.8
[2023-09-10] MEDS: SODIUM CHLORIDE 1,000 ML IV SCH (21:35)
[2023-09-10] MEDS ORDERED: HEPARIN NA (PORCINE) 5,000 UNITS/ML 1ML VIAL SQ SCH (22:00)
[2023-09-10] MEDS: carBAMazepine 200 MG TABLET PO SCH (22:08)
[2023-09-11 07:25] LABS: HEMATOCRIT 38.3 % (35.4-49); HEMOGLOBIN 12.6 GM/dL (11.7-16.9); MCH 31.8 pg (25.7-33.7); MCHC 32.9 g/dl (32.0-35.9); MEAN CELL VOLUME 96.6 fl (80-96); MEAN PLT VOLUME 8.8 fl (7.5-11.1); PLATELET COUNT 139 10^3/uL (134-434); RBC 3.96 M/mm3 (4.00-5.60); RDW 14.2 % (11.9-15.9); WHITE BLOOD COUNT 4.9 K/mm3 (4.0-10.0)
[2023-09-11 07:31] LABS: POTASSIUM 4.4 mmol/L (3.5-5.1)
[2023-09-11 07:37] LABS: ALBUMIN 3.2 g/dl (3.4-5.0); BLOOD UREA NITROGEN 26.3 mg/dL (7-18); CALCIUM 8.9 mg/dL (8.5-10.1); MAGNESIUM 2.2 mg/dL (1.8-2.4)
[2023-09-11 07:39] LABS: CREATININE 1.4 mg/dL (0.55-1.3); PHOSPHOROUS 2.8 mg/dL (2.5-4.9)
[2023-09-11 07:41] LABS: BILIRUBIN,TOTAL 0.5 mg/dL (0.2-1); TOT PROT 7.1 g/dl (6.4-8.2)
[2023-09-11] MEDS: APIXABAN 2.5 MG TABLET PO SCH (09:40)
[2023-09-11] MEDS: metoPROLOL SUCCINATE 25 MG TAB.SR.24H (FP) PO SCH (09:40)
[2023-09-11] MEDS: FUROSEMIDE 40 MG/4 ML INJECTABLE VIAL IVPUSH SCH (11:25)
[2023-09-11] MEDS: ASPIRIN COATED 81 MG TABLET.EC PO SCH (15:42)
[2023-09-11] MEDS ORDERED: GABAPENTIN 400 MG CAPSULE PO PRN (15:48)
[2023-09-11 18:06] LABS: EPI CELLS 5 /uL (0-25.1); HYALINE CASTS 0 /uL (0-3.1); URINE APPEARANCE CLEAR; URINE BACTERIA 1 /uL (0-1359); URINE BILIRUBIN NEGATIVE (NEGATIVE); URINE COLOR YELLOW; URINE GLUCOSE (UA) NEGATIVE (NEGATIVE); URINE KETONE NEGATIVE (NEGATIVE); URINE LEUK ESTERASE NEGATIVE (NEGATIVE); URINE NITRITE NEGATIVE (NEGATIVE); URINE PROTEIN NEGATIVE (NEGATIVE); URINE RBC 22 /uL (0-23.9); URINE UROBILINOGEN 0.2 mg/dL (0.2-1.0); URINE WBC 5 /uL (0-25.8)
[2023-09-11] MEDS: hydrALAZINE HCL 25 MG TABLET (FP) PO SCH (20:50)
[2023-09-11] MEDS: POLYETHYLENE GLYCOL (HEALTHYLAX) 3350 17 GM PACKET PO ONE (20:50)
[2023-09-11] MEDS: SENNOSIDES 8.6MG TABLET (FP) PO ONE (20:50)
[2023-09-11] MEDS: TAMSULOSIN HCL 0.4 MG CAP PO SCH (21:20)
[2023-09-11] MEDS: ROSUVASTATIN CA 40 MG TABLET PO SCH (21:47)
[2023-09-11] MEDS ORDERED: PRAVASTATIN SODIUM 80 MG PO SCH (22:00)
[2023-09-12 01:45] VITALS: RESP 18
[2023-09-12 08:24] LABS: BASO % 0.5 % (0-2.0); EOS % 7.9 % (0-4.5); HEMOGLOBIN 13.8 GM/dL (11.7-16.9); LYMPH % 23.3 % (8-40); MCH 31.8 pg (25.7-33.7); MCHC 32.8 g/dl (32.0-35.9); MEAN CELL VOLUME 96.9 fl (80-96); MEAN PLT VOLUME 8.6 fl (7.5-11.1); MONO % 14.4 % (3.8-10.2); NEUT % 53.9 % (42.8-82.8); PLATELET COUNT 165 10^3/uL (134-434); RBC 4.33 M/mm3 (4.00-5.60); RDW 14.2 % (11.9-15.9); WHITE BLOOD COUNT 5.6 K/mm3 (4.0-10.0)
[2023-09-12 08:28] LABS: POTASSIUM 4.2 mmol/L (3.5-5.1)
[2023-09-12 08:35] LABS: ALBUMIN 3.5 g/dl (3.4-5.0); BLOOD UREA NITROGEN 27.7 mg/dL (7-18)
[2023-09-12 08:38] LABS: CREATININE 1.4 mg/dL (0.55-1.3)
[2023-09-12 08:40] LABS: BILIRUBIN,TOTAL 0.8 mg/dL (0.2-1); TOT PROT 7.5 g/dl (6.4-8.2)
[2023-09-12] MEDS ORDERED: PATIENT'S OWN MEDICATION (NON-FORMULARY) (Mirabegron [Myrbetriq] 50 MG Tab.Er.24h) PO SCH (10:00)
[2023-09-12] MEDS: ROSUVASTATIN CA 20 MG TABLET PO SCH (21:30)
[2023-09-12] MEDS: GABAPENTIN 400 MG CAPSULE PO PRN (21:34)
[2023-09-13] MEDS: POLYETHYLENE GLYCOL (HEALTHYLAX) 3350 17 GM PACKET PO SCH (12:42)
[2023-09-13] MEDS: metoPROLOL SUCCINATE 25 MG TAB.SR.24H (FP) PO ONE (13:46)
[2023-09-14 08:00] LABS: CALCIUM 8.7 mg/dL (8.5-10.1)
[2023-09-14 08:02] LABS: BLOOD UREA NITROGEN 47.6 mg/dL (7-18)
[2023-09-14 08:04] LABS: CREATININE 1.8 mg/dL (0.55-1.3)
[2023-09-14 08:09] LABS: POTASSIUM 4.3 mmol/L (3.5-5.1)
[2023-09-14 10:37] VITALS: BP 121/68; PULSE 56; TEMP 97.2
== END 2023-09-14 13:47 | disposition home or self-care (01) | DRG 308 ==
LOC: JER 14:12 → JERBED 16:21 → J4W 20:19 → OBSVTOIN 09-11 13:21
PROVIDERS: ADMIT Internal Medicine; ATTEND Internal Medicine
DX: I48.92 Unspecified atrial flutter (principal); I50.31 Acute diastolic (congestive) heart failure; I24.89 Other forms of acute ischemic heart disease; I11.0 Hypertensive heart disease with heart failure; E78.5 Hyperlipidemia, unspecified; I25.10 Atherosclerotic heart disease of native coronary artery without angina pectoris; I73.9 Peripheral vascular disease, unspecified; G20.A1 Parkinson's disease without dyskinesia, without mention of fluctuations; Z85.09 Personal history of malignant neoplasm of other digestive organs; E11.40 Type 2 diabetes mellitus with diabetic neuropathy, unspecified; Z95.5 Presence of coronary angioplasty implant and graft; R00.2 Palpitations
CPT/HCPCS: 36415; 71045-TC-FY; 76775-TC; 80048; 80053; 80061; 81003; 82550; 83036; 83735; 83880; 84100; 84436; 84443; 84484; 85025; 85027; 85610; 85730; 87086; 93005; 93010; 93306-TC; 99285-25; G0378

== ENCOUNTER 2024-05-03 22:41 | Inpatient (IN) | payer OTHER ==
[2024-05-03 22:47] VITALS: BMI 25.8
[2024-05-03 23:42] LABS: BASO % 0.3 % (0-2.0); EOS % 4.4 % (0-4.5); HEMATOCRIT 38.3 % (35.4-49); HEMOGLOBIN 12.6 GM/dL (11.7-16.9); LYMPH % 9.9 % (8-40); MCHC 32.9 g/dl (32.0-35.9); MEAN CELL VOLUME 97.2 fl (80-96); MEAN PLT VOLUME 8.8 fl (7.5-11.1); MONO % 7.8 % (3.8-10.2); NEUT % 77.6 % (42.8-82.8); PLATELET COUNT 147 10^3/uL (134-434); RBC 3.95 M/mm3 (4.00-5.60); RDW 14.2 % (11.9-15.9); WHITE BLOOD COUNT 8.6 K/mm3 (4.0-10.0)
[2024-05-03] MEDS ORDERED: morphine SULFATE 4 MG/ML VIAL ONE (23:42)
[2024-05-03] MEDS: morphine CARPU-JECT 4 MG/1 ML DISP.SYRIN IVPUSH ONE (23:49)
[2024-05-03 23:51] LABS: INR 1.13 (0.83-1.09); PROTHROMBIN TIME (PATIENT) 12.9 SEC (9.7-13.0)
[2024-05-03 23:53] LABS: ACTIVATED PTT 30.8 SECONDS (25.2-36.5)
[2024-05-04 00:15] LABS: POTASSIUM 4.7 mmol/L (3.5-5.1)
[2024-05-04 00:16] LABS: CALCIUM 8.9 mg/dL (8.5-10.1)
[2024-05-04 00:17] LABS: ALBUMIN 3.6 g/dl (3.4-5.0); BLOOD UREA NITROGEN 32.1 mg/dL (7-18)
[2024-05-04 00:20] LABS: CREATININE 1.4 mg/dL (0.55-1.3)
[2024-05-04 00:21] LABS: BILIRUBIN,TOTAL 0.3 mg/dL (0.2-1)
[2024-05-04 00:23] LABS: TOT PROT 7.3 g/dl (6.4-8.2)
[2024-05-04] MEDS ORDERED: PATIENT'S OWN MEDICATION (NON-FORMULARY) (Gabapentin [Gabapentin] 800 MG Tablet) PO PRN (03:17)
[2024-05-04] MEDS ORDERED: ALBUTEROL SO4 0.083% IH SOL 2.5 MG/3 ML VIAL.NEB. NEB PRN ×2 (03:17→22:59)
[2024-05-04] MEDS ORDERED: MORPHINE SULFATE 2 MG/ML SYRINGE IVPUSH PRN (03:57)
[2024-05-04] MEDS ORDERED: ACETAMINOPHEN 1000 MG/100 ML BAG IVPB PRN (03:57)
[2024-05-04] MEDS ORDERED: GABAPENTIN 400 MG CAPSULE PO PRN ×2 (05:53→22:59)
[2024-05-04] MEDS: hydrALAZINE HCL 25 MG TABLET (FP) PO SCH (06:05)
[2024-05-04 08:33] LABS: ACTIVATED PTT 28.6 SECONDS (25.2-36.5); INR 1.09 (0.83-1.09); PROTHROMBIN TIME (PATIENT) 12.3 SEC (9.7-13.0)
[2024-05-04] MEDS: TAMSULOSIN HCL 0.4 MG CAP PO SCH (08:58)
[2024-05-04] MEDS: metoPROLOL SUCCINATE 25 MG TAB.SR.24H (FP) PO SCH (11:34)
[2024-05-04] MEDS: carBAMazepine 200 MG TABLET PO SCH (11:36)
[2024-05-04] MEDS: oxyCODONE HCL 5 MG TABLET PO PRN (16:53)
[2024-05-04] MEDS ORDERED: SEVOFLURANE 250 ML BTL ONE (20:42)
[2024-05-04] MEDS ORDERED: PROPOFOL 20 ML ONE (20:42)
[2024-05-04] MEDS ORDERED: MIDAZOLAM HCL 2 MG/2 ML SINGLE DOSE VIAL ONE (20:42)
[2024-05-04] MEDS ORDERED: ONDANSETRON 4 MG/2 ML VIAL ONE (20:43)
[2024-05-04] MEDS ORDERED: ceFAZolin SODIUM 1 GM VIAL ONE (20:43)
[2024-05-04] MEDS ORDERED: DEXAMETHASONE SOD PHOSPHATE 4 MG/1 ML VIAL ONE (20:43)
[2024-05-04] MEDS ORDERED: LIDOCAINE HCL/PF 2% SDV 5ML VIAL ONE (20:43)
[2024-05-04] MEDS: ceFAZolin SODIUM 1 GM VIAL IVPB ONE (21:16)
[2024-05-04] MEDS ORDERED: KETOROLAC TROMETHAMINE 30 MG/1 ML VIAL ONE (22:28)
[2024-05-04] MEDS ORDERED: ONDANSETRON 4 MG/2 ML VIAL IVPUSH PRN (22:57)
[2024-05-04] MEDS: SODIUM CHLORIDE 1,000 ML IV SCH (23:11)
[2024-05-04] MEDS: ACETAMINOPHEN 1000 MG/100 ML BAG IVPB ONE (23:11)
[2024-05-05] MEDS: ROSUVASTATIN CA 20 MG TABLET PO SCH ×2 (00:39→21:49)
[2024-05-05] MEDS: ACETAMINOPHEN 325 MG TABLET (FP) PO SCH ×2 (00:40→03:09)
[2024-05-05] MEDS: SODIUM CHLORIDE 1,000 ML IV SCH (00:40)
[2024-05-05] MEDS: PATIENT'S OWN MEDICATION (NON-FORMULARY) (Mirabegron [Myrbetriq] 50 MG Tab.Er.24h) PO SCH (00:41)
[2024-05-05] MEDS: CEFAZOLIN 1 GM/D5W 1 GM/50 ML BAG IVPB SCH (01:04)
[2024-05-05] MEDS: DOCUSATE SODIUM 100 MG CAPSULE (FP) PO SCH (05:45)
[2024-05-05] MEDS: hydrALAZINE HCL 25 MG TABLET (FP) PO SCH (05:45)
[2024-05-05] MEDS: CALCIUM 500MG/VIT-D 200 UNITS COMBO TABLET (FP) PO SCH (09:16)
[2024-05-05] MEDS: metoPROLOL SUCCINATE 25 MG TAB.SR.24H (FP) PO SCH (09:16)
[2024-05-05] MEDS: oxyCODONE HCL 5 MG TABLET PO PRN (09:17)
[2024-05-05] MEDS: TAMSULOSIN HCL 0.4 MG CAP PO SCH (09:17)
[2024-05-05] MEDS: APIXABAN 2.5 MG TABLET PO SCH (09:18)
[2024-05-05 10:06] LABS: BASO % 0.2 % (0-2.0); EOS % 4.6 % (0-4.5); HEMATOCRIT 33.3 % (35.4-49); HEMOGLOBIN 11.3 GM/dL (11.7-16.9); LYMPH % 12.2 % (8-40); MCH 32.7 pg (25.7-33.7); MCHC 33.8 g/dl (32.0-35.9); MEAN CELL VOLUME 96.9 fl (80-96); MEAN PLT VOLUME 8.9 fl (7.5-11.1); MONO % 7.6 % (3.8-10.2); NEUT % 75.4 % (42.8-82.8); PLATELET COUNT 125 10^3/uL (134-434); RBC 3.44 M/mm3 (4.00-5.60); RDW 13.9 % (11.9-15.9); WHITE BLOOD COUNT 8.9 K/mm3 (4.0-10.0)
[2024-05-05 10:30] LABS: POTASSIUM 4.7 mmol/L (3.5-5.1)
[2024-05-05 10:31] LABS: CALCIUM 8.3 mg/dL (8.5-10.1)
[2024-05-05 10:32] LABS: ALBUMIN 3.1 g/dl (3.4-5.0); BLOOD UREA NITROGEN 32.7 mg/dL (7-18); MAGNESIUM 2.5 mg/dL (1.8-2.4)
[2024-05-05 10:35] LABS: CREATININE 1.7 mg/dL (0.55-1.3); PHOSPHOROUS 4.7 mg/dL (2.5-4.9)
[2024-05-05 10:36] LABS: BILIRUBIN,TOTAL 0.5 mg/dL (0.2-1)
[2024-05-05 10:37] LABS: TOT PROT 6.6 g/dl (6.4-8.2)
[2024-05-05] MEDS: carBAMazepine 200 MG TABLET PO SCH (10:55)
[2024-05-05] MEDS ORDERED: amLODIPine BESYLATE 2.5 MG TABLET (FP) PO SCH (18:00)
[2024-05-05] MEDS: amLODIPine BESYLATE 5 MG TABLET (FP) PO SCH (18:36)
[2024-05-06 09:11] LABS: HEMATOCRIT 29.6 % (35.4-49); HEMOGLOBIN 9.8 GM/dL (11.7-16.9); MCH 32.3 pg (25.7-33.7); MCHC 33.1 g/dl (32.0-35.9); MEAN CELL VOLUME 97.5 fl (80-96); MEAN PLT VOLUME 9.1 fl (7.5-11.1); PLATELET COUNT 109 10^3/uL (134-434); RBC 3.04 M/mm3 (4.00-5.60); WHITE BLOOD COUNT 6.6 K/mm3 (4.0-10.0)
[2024-05-06 09:35] LABS: POTASSIUM 4.3 mmol/L (3.5-5.1)
[2024-05-06 09:43] LABS: CALCIUM 8.4 mg/dL (8.5-10.1)
[2024-05-06 09:44] LABS: BLOOD UREA NITROGEN 34.5 mg/dL (7-18)
[2024-05-06 09:46] LABS: CREATININE 1.6 mg/dL (0.55-1.3)
[2024-05-06 09:48] LABS: BILIRUBIN,TOTAL 0.5 mg/dL (0.2-1); TOT PROT 6.2 g/dl (6.4-8.2)
[2024-05-06] MEDS: ASPIRIN COATED 81 MG TABLET.EC PO SCH (10:48)
[2024-05-06] MEDS: POLYETHYLENE GLYCOL (HEALTHYLAX) 3350 17 GM PACKET PO SCH (11:43)
[2024-05-06] MEDS: SENNOSIDES 8.8 MG/5 ML SYRUP PO SCH (21:39)
[2024-05-07 06:52] LABS: HEMATOCRIT 25.7 % (35.4-49); HEMOGLOBIN 8.5 GM/dL (11.7-16.9); MCH 32.3 pg (25.7-33.7); MCHC 33.1 g/dl (32.0-35.9); MEAN CELL VOLUME 97.5 fl (80-96); MEAN PLT VOLUME 8.8 fl (7.5-11.1); PLATELET COUNT 109 10^3/uL (134-434); RBC 2.64 M/mm3 (4.00-5.60); RDW 13.9 % (11.9-15.9); WHITE BLOOD COUNT 5.9 K/mm3 (4.0-10.0)
[2024-05-07 07:13] LABS: POTASSIUM 4.2 mmol/L (3.5-5.1)
[2024-05-07 07:22] LABS: CALCIUM 8.4 mg/dL (8.5-10.1)
[2024-05-07 07:23] LABS: ALBUMIN 2.8 g/dl (3.4-5.0); BLOOD UREA NITROGEN 25.7 mg/dL (7-18)
[2024-05-07 07:26] LABS: CREATININE 1.3 mg/dL (0.55-1.3)
[2024-05-07 07:28] LABS: BILIRUBIN,TOTAL 0.5 mg/dL (0.2-1); TOT PROT 6.1 g/dl (6.4-8.2)
[2024-05-07] MEDS: MAG HYDROX/AL HYDROX/SIMETH 30 ML UNIT-DOSE CUP PO ONE (12:14)
[2024-05-07] MEDS: FAMOTIDINE 20 MG/50 ML IVPB 20 MG/50 ML MG IVPB ONE (12:25)
[2024-05-08 08:59] LABS: HEMATOCRIT 27.6 % (35.4-49); HEMOGLOBIN 9.1 GM/dL (11.7-16.9); MCH 32.5 pg (25.7-33.7); MCHC 33.1 g/dl (32.0-35.9); MEAN CELL VOLUME 98.3 fl (80-96); MEAN PLT VOLUME 9.3 fl (7.5-11.1); PLATELET COUNT 105 10^3/uL (134-434); RBC 2.81 M/mm3 (4.00-5.60); RDW 13.8 % (11.9-15.9); WHITE BLOOD COUNT 5.9 K/mm3 (4.0-10.0)
[2024-05-08 09:01] LABS: POTASSIUM 4.4 mmol/L (3.5-5.1)
[2024-05-08 09:03] LABS: CALCIUM 8.4 mg/dL (8.5-10.1)
[2024-05-08 09:04] LABS: ALBUMIN 2.9 g/dl (3.4-5.0); BLOOD UREA NITROGEN 24.5 mg/dL (7-18); MAGNESIUM 2.1 mg/dL (1.8-2.4)
[2024-05-08 09:07] LABS: CREATININE 1.2 mg/dL (0.55-1.3); PHOSPHOROUS 3.3 mg/dL (2.5-4.9)
[2024-05-08 09:08] LABS: BILIRUBIN,TOTAL 0.6 mg/dL (0.2-1); TOT PROT 6.5 g/dl (6.4-8.2)
[2024-05-08] MEDS: MAGNESIUM HYDROX 2400MG/30ML ORAL SUSPENSION 30 ML CUP PO ONE (11:22)
[2024-05-08] MEDS: oxyCODONE HCL 5 MG TABLET PO PRN (14:29)
[2024-05-08 15:09] VITALS: RESP 18
[2024-05-10 13:10] VITALS: BP 135/64; PULSE 71; TEMP 98.6
== END 2024-05-10 13:21 | DRG 481 ==
LOC: JER 22:41 → JERBED 05-04 01:03 → J7W 05-04 04:48 → OBSVTOIN 05-04 09:28 → J6S 05-04 16:32
PROVIDERS: ADMIT Internal Medicine; ATTEND Internal Medicine
PROC: 0QS606Z Reposition Right Upper Femur with Intramedullary Internal Fixation Device, Open Approach (ICD-10-PCS; principal; 2024-05-04 17:00)
DX: S72.21XA Displaced subtrochanteric fracture of right femur, initial encounter for closed fracture (principal); D62 Acute posthemorrhagic anemia; I48.92 Unspecified atrial flutter; N17.9 Acute kidney failure, unspecified; I13.0 Hypertensive heart and chronic kidney disease with heart failure and stage 1 through stage 4 chronic kidney disease, or unspecified chronic kidney disease; I50.32 Chronic diastolic (congestive) heart failure; I48.91 Unspecified atrial fibrillation; E78.5 Hyperlipidemia, unspecified; J43.9 Emphysema, unspecified; I73.9 Peripheral vascular disease, unspecified; I25.10 Atherosclerotic heart disease of native coronary artery without angina pectoris; W19.XXXA Unspecified fall, initial encounter; Y93.89 Activity, other specified; Y92.009 Unspecified place in unspecified non-institutional (private) residence as the place of occurrence of the external cause; Y99.8 Other external cause status; N40.0 Benign prostatic hyperplasia without lower urinary tract symptoms; N18.9 Chronic kidney disease, unspecified
CPT/HCPCS: 36415; 71045-TC-FY; 72170-TC-FY; 73521-TC-FY; 73552-TC-RT-FY; 76000-TC-FY; 80048; 80053; 83735; 84100; 85025; 85027; 85610; 85730; 86922; 93005; 93010; 94760; 97116-GP; 97162-GP; 99285-25; C1713; G0378; J0131